=== PATIENT | male | born 1955 | race Caucasian/White ===

== ENCOUNTER 2020-07-26 08:00 | Outpatient (CLI) | payer MEDICARE, OTHER ==
[2020-07-26 18:35] LABS: BASOPHILS % (AUTO) 0.5 %; EOSINOPHILS # (AUTO) 0.1 10^3/uL (0.0-0.7); EOSINOPHILS % (AUTO) 2.5 %; HCT - HEMATOCRIT 30.5 % (42.0-52.0); HGB - HEMOGLOBIN 8.2 g/dL (14.0-18.0); LYMPHOCYTES # (AUTO) 0.6 10^3/uL (1.5-3.5); LYMPHOCYTES % (AUTO) 10.7 %; MEAN CORPUSCULAR HGB CONC 26.9 g/dL (32.0-36.0); MEAN PLATELET VOLUME 11.1 fL (7.4-11.4); MONOCYTES # (AUTO) 0.6 10^3/uL (0.0-1.0); MONOCYTES % (AUTO) 10.4 %; NEUTROPHILS # (AUTO) 4.3 10^3/uL (1.5-6.6); NEUTROPHILS % (AUTO) 75.5 %; PLT - PLATELET COUNT 191 10^3/uL (130-450); RED BLOOD COUNT 3.91 10^6/uL (4.70-6.10); RED CELL DISTRIBUTION WIDTH 21.1 % (12.0-15.0); WHITE BLOOD COUNT 5.7 x10^3/uL (4.8-10.8)
[2020-07-26 18:36] LABS: ALBUMIN 2.5 g/dL (3.2-5.5); ALBUMIN/GLOBULIN RATIO 0.4 (1.0-2.2); ALKALINE PHOSPHATASE 56 IU/L (42-121); ALT ALANINE AMINOTRANSFERASE 32 IU/L (10-60); AST ASPARTATE AMINOTRANSFERASE 40 IU/L (10-42); BILIRUBIN,TOTAL 1.4 mg/dL (0.2-1.0); BUN - BLOOD UREA NITROGEN 20 mg/dL (6-20); CALCIUM 8.7 mg/dL (8.5-10.3); CARBON DIOXIDE - CO2 28 mmol/L (21-32); CHLORIDE 98 mmol/L (101-111); CHOL/HDL RATIO 3.6 (<5.0); CHOLESTEROL 87 mg/dL; CREATININE 0.8 mg/dL (0.6-1.2); GFR - MDRD 97 (>89); GLUCOSE 145 mg/dL (70-100); HDL CHOLESTEROL 24 mg/dL; LDL CHOLESTEROL,CALCULATED 53 mg/dL; LDL/HDL RATIO 2.2 (<3.6); POTASSIUM 4.2 mmol/L (3.5-5.0); SODIUM 137 mmol/L (135-145); TOTAL PROTEIN 9.5 g/dL (6.7-8.2); TRIGLYCERIDES 51 mg/dL; VLDL CHOLESTEROL 10 mg/dL
[2020-07-26 18:55] LABS: THYROID STIMULATING HORMONE 2.01 uIU/mL (0.34-5.60)
[2020-07-26 19:30] LABS: PLATELET ESTIMATE, MANUAL NORMAL (130-450,000) (NORMAL); PLATELET MORPHOLOGY NORMAL APPEARANCE (NORMAL)
[2020-07-26 19:31] LABS: WBC MORPHOLOGY (MULTIPLE) NORMAL APPEARANCE (NORMAL)
== END 2020-07-26 23:59 | disposition home or self-care (01) ==
LOC: LAB.WCP 08:00
PROVIDERS: ATTEND Family Medicine
DX: E78.5 Hyperlipidemia, unspecified (principal); I10 Essential (primary) hypertension; E66.01 Morbid (severe) obesity due to excess calories; E11.59 Type 2 diabetes mellitus with other circulatory complications
CPT/HCPCS: 36415; 80050; 80053; 80061; 81599; 82043; 82570; 83036; 83721; 84443; 85025

== ENCOUNTER 2020-07-27 08:00 | Outpatient (CLI) | payer MEDICARE, OTHER ==
[2020-07-27 12:26] LABS: CREATININE,URINE 140.1 mg/dL; MICROALBUM/CREATININE RATIO,UR 10.7 ug/mg (<30.0); MICROALBUMIN,URINE 1.5 mg/dL (0-300.0)
== END 2020-07-27 23:59 | disposition home or self-care (01) ==
LOC: LAB.WCP 08:00
PROVIDERS: ATTEND Family Medicine
DX: E78.5 Hyperlipidemia, unspecified (principal); I10 Essential (primary) hypertension; E66.01 Morbid (severe) obesity due to excess calories; E11.59 Type 2 diabetes mellitus with other circulatory complications
CPT/HCPCS: 82043; 82570

== ENCOUNTER 2020-10-26 08:00 | Outpatient (CLI) | payer MEDICARE, OTHER ==
[2020-10-26 19:09] LABS: FERRITIN 7.5 ng/mL (23.9-336.2)
[2020-10-26 19:17] LABS: % IRON SATURATION 7 % (20-50); IRON 26 ug/dL (45-182); TOTAL IRON BINDING CAPACITY 375 ug/dL (250-450); TRANSFERRIN 268 mg/dL (180-329)
== END 2020-10-26 23:59 | disposition home or self-care (01) ==
LOC: LAB.WCP 08:00
PROVIDERS: ATTEND Family Medicine
DX: D50.9 Iron deficiency anemia, unspecified (principal)
CPT/HCPCS: 36415; 82607; 82728; 82746; 83540; 84466

== ENCOUNTER 2020-10-26 18:02 | Outpatient (CLI) | payer MEDICARE, OTHER ==
--- NOTE | 2020-10-26 20:28 | Ultrasound Report ---
PROCEDURE: Abdomen Complete INDICATIONS: HYPOALBUMINEMIA TECHNIQUE: Real-time scanning was performed of the abdominal and retroperitoneal organs, with image documentatio n. COMPARISON: None. FINDINGS: Liver: Liver is nodular in margin, mildly elongated measuring 18.7 cm and diffusely coarse echotextu re. The portal vein was not well seen. Gallbladder: On the few available views of the gallbladder, the wall is thickened. No dense shadowing calculus. Biliary ducts: Not well seen due to lack of good acoustic window.. Pancreas: Not well seen due to lack of good acoustic window. Spleen: Spleen is enlarged measuring 15.8 cm in length. Kidneys: Kidneys are normal in size and echotexture. Right kidney measures 11.1 cm long; left kidne y measures 11.7 cm long. No hydronephrosis or nephrolithiasis. No solid masses. Aorta: Not seen Iliacs: Not seen IVC: Not seen Miscellaneous: Large amount of intra-abdominal ascites. IMPRESSION: 1. Cirrhotic liver morphology. 2. Findings of portal hypertension including splenomegaly and ascites. 3. Nonspecific gallbladder wall thickening. This is often seen in the presence of ascites. 4. Preliminary results given by the enrollment management director to the ordering provider. Reviewed by: Trish Hollis MD on 10/26/2020 8:26 PM PDT Approved by: Trish Hollis MD on 10/26/2020 8:26 PM PDT Station ID: [id number]
== END 2020-10-26 18:03 | disposition home or self-care (01) ==
LOC: DI 18:02
PROVIDERS: ATTEND Family Medicine
DX: E88.09 Other disorders of plasma-protein metabolism, not elsewhere classified (principal); K74.60 Unspecified cirrhosis of liver; R18.8 Other ascites; K76.6 Portal hypertension
CPT/HCPCS: 36415; 82607; 82728; 82746; 83540; 84466

== ENCOUNTER 2020-11-01 08:00 | Outpatient (CLI) | payer MEDICARE, OTHER ==
[2020-11-01 11:37] LABS: ABSOLUTE RETICS # AUTO 0.096 10^6/uL (0.020-0.110); RED BLOOD COUNT 3.98 10^6/uL (4.70-6.10); RETICULOCYTE COUNT % (AUTO) 2.42 % (0.5-2.3)
[2020-11-01 11:51] LABS: ESTIMATED AVERAGE GLUCOSE 131 mg/dL (70-100); HEMOGLOBIN A1c% 6.2 % (4.27-6.07)
[2020-11-01 12:04] LABS: ALBUMIN 2.4 g/dL (3.2-5.5); BILIRUBIN,DIRECT 0.2 mg/dL (0.1-0.5); BILIRUBIN,TOTAL 1.2 mg/dL (0.2-1.0); CREATININE 0.8 mg/dL (0.6-1.2); TOTAL PROTEIN 9.4 g/dL (6.7-8.2)
[2020-11-01 12:13] LABS: CALCIUM 8.4 mg/dL (8.5-10.3); POTASSIUM 3.8 mmol/L (3.5-5.0)
[2020-11-02 12:13] LABS: HEPATITIS C ANTIBODY NON-REACTIVE (NON-REACTIVE)
== END 2020-11-01 23:59 | disposition home or self-care (01) ==
LOC: LAB.WCP 08:00
PROVIDERS: ATTEND Family Medicine
DX: E11.59 Type 2 diabetes mellitus with other circulatory complications (principal); R18.8 Other ascites; E88.09 Other disorders of plasma-protein metabolism, not elsewhere classified; D50.9 Iron deficiency anemia, unspecified
CPT/HCPCS: 36415; 80048; 80076; 83036; 85045; 86317; 86704; 86803

== ENCOUNTER 2020-11-04 08:00 | Outpatient (CLI) | payer MEDICARE, OTHER ==
[2020-11-08 10:31] LABS: IMMUNOGLOBULIN A 369 mg/dL (70-320); IMMUNOGLOBULIN G 4959 mg/dL (600-1540); IMMUNOGLOBULIN M 247 mg/dL (50-300)
== END 2020-11-04 23:59 | disposition home or self-care (01) ==
LOC: LAB.WCP 08:00
PROVIDERS: ATTEND Family Medicine
DX: C90.00 Multiple myeloma not having achieved remission (principal)
CPT/HCPCS: 82784

== ENCOUNTER 2021-01-17 11:04 | Outpatient (CLI) | payer MEDICARE, OTHER ==
[2021-01-17 17:52] LABS: BASOPHILS % (AUTO) 0.4 %; EOSINOPHILS # (AUTO) 0.1 10^3/uL (0.0-0.7); EOSINOPHILS % (AUTO) 2.2 %; HCT - HEMATOCRIT 33.5 % (42.0-52.0); HGB - HEMOGLOBIN 9.7 g/dL (14.0-18.0); LYMPHOCYTES # (AUTO) 0.6 10^3/uL (1.5-3.5); LYMPHOCYTES % (AUTO) 12.5 %; MEAN CORPUSCULAR VOLUME 82.7 fL (80.0-94.0); MEAN PLATELET VOLUME 11.2 fL (7.4-11.4); MONOCYTES # (AUTO) 0.5 10^3/uL (0.0-1.0); MONOCYTES % (AUTO) 10.7 %; NEUTROPHILS # (AUTO) 3.3 10^3/uL (1.5-6.6); NEUTROPHILS % (AUTO) 73.8 %; PLT - PLATELET COUNT 185 10^3/uL (130-450); RED BLOOD COUNT 4.05 10^6/uL (4.70-6.10); WHITE BLOOD COUNT 4.5 x10^3/uL (4.8-10.8)
[2021-01-17 17:53] LABS: SLIDE REVIEW? Indicated
[2021-01-17 18:05] LABS: ALBUMIN 2.4 g/dL (3.2-5.5); ALBUMIN/GLOBULIN RATIO 0.3 (1.0-2.2); CALCIUM 8.5 mg/dL (8.5-10.3); CREATININE 0.8 mg/dL (0.6-1.2); TOTAL PROTEIN 10.5 g/dL (6.7-8.2)
[2021-01-17 18:21] LABS: THYROID STIMULATING HORMONE 2.19 uIU/mL (0.34-5.60)
[2021-01-17 18:23] LABS: FREE T3 2.49 pg/mL (2.5-3.9); FREE T4 (FREE THYROXINE) 1.15 ng/dL (0.58-1.64)
[2021-01-17 19:15] LABS: PLATELET ESTIMATE, MANUAL NORMAL (130-450,000) (NORMAL); PLATELET MORPHOLOGY NORMAL APPEARANCE (NORMAL); WBC MORPHOLOGY (MULTIPLE) NORMAL APPEARANCE (NORMAL)
[2021-01-17 20:17] LABS: ESTIMATED AVERAGE GLUCOSE 131 mg/dL (70-100); HEMOGLOBIN A1c% 6.2 % (4.27-6.07)
== END 2021-01-17 23:59 | disposition home or self-care (01) ==
LOC: LAB.WCP 11:04
PROVIDERS: ATTEND Family Medicine
DX: I10 Essential (primary) hypertension (principal); E11.51 Type 2 diabetes mellitus with diabetic peripheral angiopathy without gangrene; K76.6 Portal hypertension; R18.8 Other ascites; E88.09 Other disorders of plasma-protein metabolism, not elsewhere classified; I25.10 Atherosclerotic heart disease of native coronary artery without angina pectoris; E66.01 Morbid (severe) obesity due to excess calories
CPT/HCPCS: 36415; 80053; 83036; 84439; 84443; 84481; 85025

== ENCOUNTER 2021-04-18 08:00 | Outpatient (CLI) | payer MEDICARE, OTHER ==
[2021-04-18 18:44] LABS: CALCIUM 8.1 mg/dL (8.5-10.3); CREATININE 0.9 mg/dL (0.6-1.2); POTASSIUM 4.8 mmol/L (3.5-5.0)
[2021-04-18 21:05] LABS: ESTIMATED AVERAGE GLUCOSE 134 mg/dL (70-100); HEMOGLOBIN A1c% 6.3 % (4.27-6.07)
== END 2021-04-18 23:59 | disposition home or self-care (01) ==
LOC: LAB.WCP 08:00
PROVIDERS: ATTEND Family Medicine
DX: K74.69 Other cirrhosis of liver (principal); K76.6 Portal hypertension; D50.9 Iron deficiency anemia, unspecified; E88.09 Other disorders of plasma-protein metabolism, not elsewhere classified; I10 Essential (primary) hypertension; E66.01 Morbid (severe) obesity due to excess calories; E11.59 Type 2 diabetes mellitus with other circulatory complications
CPT/HCPCS: 36415; 80048; 83036

== ENCOUNTER 2021-08-04 07:55 | Outpatient (CLI) | payer MEDICARE, OTHER ==
[2021-08-04 13:07] LABS: BASOPHILS % (AUTO) 1.2 %; EOSINOPHILS # (AUTO) 0.2 10^3/uL (0.0-0.7); EOSINOPHILS % (AUTO) 7.3 %; HCT - HEMATOCRIT 30.5 % (42.0-52.0); HGB - HEMOGLOBIN 9.2 g/dL (14.0-18.0); LYMPHOCYTES # (AUTO) 0.5 10^3/uL (1.5-3.5); LYMPHOCYTES % (AUTO) 15.8 %; MEAN CORPUSCULAR HEMOGLOBIN 27.6 pg (27.0-31.0); MEAN CORPUSCULAR HGB CONC 30.2 g/dL (32.0-36.0); MEAN CORPUSCULAR VOLUME 91.6 fL (80.0-94.0); MEAN PLATELET VOLUME 11.4 fL (7.4-11.4); MONOCYTES # (AUTO) 0.7 10^3/uL (0.0-1.0); MONOCYTES % (AUTO) 19.8 %; NEUTROPHILS # (AUTO) 1.8 10^3/uL (1.5-6.6); PLT - PLATELET COUNT 150 10^3/uL (130-450); RED BLOOD COUNT 3.33 10^6/uL (4.70-6.10); RED CELL DISTRIBUTION WIDTH 20.5 % (12.0-15.0); WHITE BLOOD COUNT 3.3 x10^3/uL (4.8-10.8)
[2021-08-04 13:17] LABS: ALBUMIN 1.8 g/dL (3.2-5.5); ALBUMIN/GLOBULIN RATIO 0.2 (1.0-2.2); BILIRUBIN,TOTAL 0.7 mg/dL (0.2-1.0); CALCIUM 8.3 mg/dL (8.5-10.3); CREATININE 0.9 mg/dL (0.6-1.2); POTASSIUM 4.4 mmol/L (3.5-5.0); TOTAL PROTEIN 10.6 g/dL (6.7-8.2)
[2021-08-04 13:24] LABS: CREATININE,URINE 102.3 mg/dL; MICROALBUM/CREATININE RATIO,UR 4.9 ug/mg (<30.0); MICROALBUMIN,URINE 0.5 mg/dL (0-300.0)
[2021-08-04 13:26] LABS: THYROID STIMULATING HORMONE 3.6 uIU/mL (0.34-5.60)
[2021-08-04 13:44] LABS: ESTIMATED AVERAGE GLUCOSE 123 mg/dL (70-100); HEMOGLOBIN A1c% 5.9 % (4.27-6.07)
== END 2021-08-04 07:56 | disposition home or self-care (01) ==
LOC: LAB.N 07:55
PROVIDERS: ATTEND Family Medicine
DX: I10 Essential (primary) hypertension (principal); K76.6 Portal hypertension; K74.69 Other cirrhosis of liver; E88.09 Other disorders of plasma-protein metabolism, not elsewhere classified; I25.10 Atherosclerotic heart disease of native coronary artery without angina pectoris; E66.01 Morbid (severe) obesity due to excess calories; E11.59 Type 2 diabetes mellitus with other circulatory complications
CPT/HCPCS: 36415; 80053; 82043; 82570; 83036; 84443; 85025

== ENCOUNTER 2021-12-11 20:48 | Emergency (ER) | payer MEDICARE, OTHER ==
[2021-12-11 21:28] LABS: BASOPHILS % (AUTO) 0.9 %; EOSINOPHILS # (AUTO) 0.1 10^3/uL (0.0-0.7); EOSINOPHILS % (AUTO) 1.9 %; HCT - HEMATOCRIT 24.5 % (42.0-52.0); HGB - HEMOGLOBIN 7.5 g/dL (14.0-18.0); LYMPHOCYTES # (AUTO) 0.4 10^3/uL (1.5-3.5); MEAN CORPUSCULAR HEMOGLOBIN 28.4 pg (27.0-31.0); MEAN CORPUSCULAR HGB CONC 30.6 g/dL (32.0-36.0); MEAN CORPUSCULAR VOLUME 92.8 fL (80.0-94.0); MONOCYTES # (AUTO) 0.5 10^3/uL (0.0-1.0); MONOCYTES % (AUTO) 12.1 %; NEUTROPHILS # (AUTO) 3.2 10^3/uL (1.5-6.6); NEUTROPHILS % (AUTO) 74.9 %; PLT - PLATELET COUNT 211 10^3/uL (130-450); RED BLOOD COUNT 2.64 10^6/uL (4.70-6.10); RED CELL DISTRIBUTION WIDTH 19.3 % (12.0-15.0); WHITE BLOOD COUNT 4.3 x10^3/uL (4.8-10.8)
[2021-12-11] MEDS ORDERED: LIDOCAINE PATCH 5% TOP STA (21:39)
[2021-12-11 21:49] LABS: BILIRUBIN,URINE NEGATIVE (NEGATIVE); GLUCOSE, URINE (UA) NEGATIVE (NEGATIVE); KETONES,URINE (UA) NEGATIVE (NEGATIVE); LEUKOCYTE ESTERASE, URINE NEGATIVE (NEGATIVE); NITRITE,URINE NEGATIVE (NEGATIVE); OCCULT BLOOD,URINE NEGATIVE (NEGATIVE); PH,URINE 5.5 PH (5.0-7.5); PROTEIN,URINE NEGATIVE (NEGATIVE); UROBILINOGEN,URINE 0.2 (NORMAL) E.U./dL (NORMAL)
[2021-12-11 21:50] LABS: CLARITY,URINE CLEAR (CLEAR)
[2021-12-11 22:06] LABS: ALBUMIN 1.3 g/dL (3.2-5.5); ALBUMIN/GLOBULIN RATIO 0.1 (1.0-2.2); BILIRUBIN,TOTAL 0.5 mg/dL (0.2-1.0); CALCIUM 7.5 mg/dL (8.5-10.3); CREATININE 0.9 mg/dL (0.6-1.2); POTASSIUM 3.8 mmol/L (3.5-5.0); TOTAL PROTEIN 10.8 g/dL (6.7-8.2)
--- NOTE | 2021-12-11 23:01 | Ultrasound Report ---
PROCEDURE: Abdomen Limited INDICATIONS: RUQ abd pain TECHNIQUE: Real-time focused scanning was performed of the abdomen, with image documentation. COMPARISON: Abdominal ultrasound 10/26/2020 FINDINGS: The liver redemonstrates diffusely heterogeneous increased echogenicity and nodular hepatic contour c ompatible with cirrhosis. There is patent hepatopedal flow within the main portal vein. The gallbladder demonstrates biliary sludge with a few echogenic foci suggestive of gallstones. There is borderline gallbladder wall thickening measuring approximately 0.3-0.4 cm. There is a small amoun t of pericholecystic fluid but evaluation is limited by the presence of ascites. No definite intrahepatic biliary ductal dilatation but evaluation is limited due to increased parench ymal echogenicity. There is extrahepatic biliary ductal dilatation with suggestion of a dilated duct in the region of the pancreatic head measuring up to 1.7 cm. However, evaluation of the pancreas is l imited. Right kidney measures 10.9 cm. No hydronephrosis. There is moderate ascites demonstrated within all 4 quadrants with numerous internal septations. IMPRESSION: 1. Moderate ascites with numerous internal septations demonstrated. The findings suggest sequelae of an infectious or inflammatory process. 2. Findings compatible with cirrhosis redemonstrated. No discrete hepatic mass identified but evaluat ion is limited due to increased hepatic echogenicity. 3. Biliary sludge and gallstones demonstrated in the gallbladder. Borderline gallbladder wall thicken ing and mild pericholecystic fluid are nonspecific in the context of ascites. However, given patient' s symptoms, developing acute cholecystitis cannot be excluded and correlation is recommended clinical ly. 4. Suggestion of extrahepatic biliary ductal dilatation with limited visualization on the current renu dy. Recommend correlation clinically and if indicated further evaluation may be obtained with CT or M AUTHORIZATION REP. Reviewed by: Luis Alberto Hudson MD on 12/11/2021 10:59 PM PDT Approved by: Luis Alberto Hudson MD on 12/11/2021 10:59 PM PDT Station ID: [id number]
[2021-12-11] MEDS ORDERED: HYDROmorphone 1 MG/ML CARPUJECT IVP STA (23:31)
[2021-12-11] MEDS ORDERED: ONDANSETRON 4 MG/2 ML VIAL IVP STA (23:31)
[2021-12-12] MEDS ORDERED: levoFLOXacin 750 MG/150 ML 750 MG/150 ML BAG IV STA (01:49)
--- NOTE | 2021-12-12 03:59 | ED Physician Documentation ---
History of Present Illness - Stated complaint Stated Complaint: RT SIDE PX - Chief complaint Chief Complaint: Abd Pain - Additonal information Additional information: Patient is a 65-year-old male presenting to the emergency department with chief complaint of right-sided flank pain and fatigue. Reports several weeks of intermittent episodes of right-sided flank pain. No association with food, no associated nausea, vomiting, diarrhea or constipation. Does report progressively worsening fatigue for the last 1-2 weeks. Denies any fever, chills, chest pain, new rash, known sick contacts. 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 Also reports that "I was at [facility] in October and they told me my pancreas was swelling". Follows with gastroenterology at [facility], , Review of Systems Ten Systems: 10 systems reviewed and negative Constitutional: reports: Fatigue Eyes: denies: Loss of vision Nose: denies: Rhinorrhea / runny nose Throat: denies: Dental pain / toothache Cardiac: denies: Chest pain / pressure, Palpitations, Pedal edema GI: reports: Abdominal Pain. denies: Vomiting PD PAST MEDICAL HISTORY - Past Medical History Past Medical History: Yes Cardiovascular: Hypertension, Coronary artery disease, [place] GI: GERD - Past Surgical History Past Surgical History: Yes Ortho: Arthroscopic surgery Cardiovascular: Coronary stent - Present Medications Home Medications: Ambulatory Orders Medication Instructions Recorded Confirmed Aspirin 81 mg PO DAILY 11/18/12 12/12/21 Omeprazole [PriLOSEC] 20 mg PO DAILY 11/18/12 12/12/21 lisinopriL [Zestril] 10 mg PO DAILY 11/18/12 12/12/21 Atorvastatin Calcium 40 mg PO DAILY 12/12/21 12/12/21 Ferrous Sulfate 324 mg PO DAILY 12/12/21 12/12/21 Furosemide [Lasix] 20 mg PO DAILY 12/12/21 12/12/21 Ondansetron Odt [Zofran] 4 mg TL Q6H PRN #10 tablet 12/12/21 Spironolactone [Aldactone] 25 mg PO DAILY 12/12/21 12/12/21 carvediloL [Coreg] 3.125 mg PO DAILY 12/12/21 12/12/21 metFORMIN [Glucophage] 500 mg PO DAILY 12/12/21 12/12/21 oxyCODONE [Roxicodone] 5 mg PO Q4-6H PRN #12 tablet 12/12/21 - Allergies Allergies/Adverse Reactions: Allergies Allergy/AdvReac Type Severity Reaction Status Date / Time Penicillins Allergy unknown Verified 12/11/21 20:53 - Social History Does the pt smoke?: No Smoking Status: Never smoker Does the pt drink ETOH?: No Does the pt have substance abuse?: No - POLST Patient has POLST: No PD ED PE NORMAL - General General: Alert and oriented X 3, No acute distress, Other (Morbidly obese) - HEENT HEENT: Atraumatic, PERRL, EOMI - Neck Neck: Supple, no meningeal sign - Cardiac Cardiac: RRR - Respiratory Respiratory: No respiratory distress, Clear bilaterally - Abdomen Abdomen: Normal bowel sounds, Other (Right upper quadrant tenderness to palpation. Positive fluid wave) - Male Male : Deferred - Rectal Rectal: Deferred, Other (Light brown soft well-formed stool in rectal vault.) - Back Back: Other (Right-sided CVA tenderness to palpation.) - Derm Derm: Normal color - Extremities Extremities: No deformity - Psych Psych: Normal mood Results - Vitals Vitals: Vital Signs - 24 hr 12/11/21 12/11/21 12/12/21 20:53 22:56 00:00 Temperature 36.5 C Heart Rate 87 79 83 Heart Rate [ Brachial] Respiratory 16 16 Rate Blood Pressure 147/66 H 131/57 H 120/46 L Blood Pressure [Left Brachial artery] O2 Saturation 98 98 99 12/12/21 12/12/21 12/12/21 00:21 00:38 00:53 Temperature 36.8 C 36.8 C 37.0 C Heart Rate Heart Rate [ 80 71 80 Brachial] Respiratory 15 13 16 Rate Blood Pressure Blood Pressure 120/46 L 118/48 L 106/50 L [Left Brachial artery] O2 Saturation 97 98 94 12/12/21 12/12/21 12/12/21 01:23 01:53 02:00 Temperature 37 C 36.8 C 37 C Heart Rate 79 Heart Rate [ 79 80 Brachial] Respiratory 16 17 16 Rate Blood Pressure 122/55 L Blood Pressure 122/55 L 121/56 L [Left Brachial artery] O2 Saturation 93 93 12/12/21 12/12/21 12/12/21 02:23 02:53 03:23 Temperature 36.9 C 36.8 C 36.8 C Heart Rate Heart Rate [ 72 77 76 Brachial] Respiratory 17 18 18 Rate Blood Pressure Blood Pressure 123/61 119/57 L 115/57 L [Left Brachial artery] O2 Saturation 100 96 96 12/12/21 12/12/21 12/12/21 04:00 04:08 06:00 Temperature 36.8 C 36.8 C Heart Rate 75 74 Heart Rate [ 75 Brachial] Respiratory 17 17 16 Rate Blood Pressure 115/58 L 120/56 L Blood Pressure 115/58 L [Left Brachial artery] O2 Saturation 96 96 100 12/12/21 12/12/21 12/12/21 08:00 10:00 12:00 Temperature Heart Rate 71 71 76 Heart Rate [ Brachial] Respiratory 19 18 22 Rate Blood Pressure 137/53 H 129/57 L 125/58 L Blood Pressure [Left Brachial artery] O2 Saturation 99 98 99 Oxygen O2 Source Room air - EKG (time done) 2212 Rate: Rate (enter#) (82) Rhythm: NSR Rialto: Normal Intervals: Normal HI QRS: Normal Ischemia: Normal ST segments Compare to prior EKG: Unchanged from prior EKG Computer interpretation: Agree with computer - Labs Labs: Microbiology 12/12/21 01:51 Occult Blood - Final Stool Laboratory Tests 12/11/21 12/11/21 12/11/21 21:20 21:20 21:25 WBC 4.3 L RBC 2.64 L Hgb 7.5 L Hct 24.5 L MCV 92.8 MCH 28.4 MCHC 30.6 L RDW 19.3 H Plt Count 211 MPV 10.0 Neut # (Auto) 3.2 Lymph # (Auto) 0.4 L [place] # (Auto) 0.5 Eos # (Auto) 0.1 Baso # (Auto) 0.0 Absolute Nucleated RBC 0.00 Nucleated RBC % 0.0 Sodium Potassium Chloride Carbon Dioxide Anion Gap BUN Creatinine Estimated GFR (MDRD) Glucose Calcium Total Bilirubin AST ALT Alkaline Phosphatase Troponin I High Sens Total Protein Albumin Globulin Albumin/Globulin Ratio Lipase Urine Color YELLOW Urine Clarity CLEAR Urine pH 5.5 Ur Specific [place] 1.020 Urine Protein NEGATIVE Urine Glucose (UA) NEGATIVE Urine Ketones NEGATIVE Urine Occult Blood NEGATIVE Urine Nitrite NEGATIVE Urine Bilirubin NEGATIVE Urine Urobilinogen 0.2 (NORMAL) Ur Leukocyte Esterase NEGATIVE Ur Microscopic Review NOT INDICATED Urine Culture Comments NOT INDICATED Ethyl Alcohol SARS-CoV-2 (PCR) Blood Type Blood Type Recheck A POSITIVE Antibody Screen Crossmatch IS Only 12/11/21 12/11/21 12/11/21 21:45 21:45 21:45 WBC RBC Hgb Hct MCV MCH MCHC RDW Plt Count MPV Neut # (Auto) Lymph # (Auto) [place] # (Auto) Eos # (Auto) Baso # (Auto) Absolute Nucleated RBC Nucleated RBC % Sodium 134 L Potassium 3.8 Chloride 100 L Carbon Dioxide 27 Anion Gap 7.0 BUN 13 Creatinine 0.9 Estimated GFR (MDRD) 84 L Glucose 135 H Calcium 7.5 L Total Bilirubin 0.5 AST 43 H ALT 23 Alkaline Phosphatase 50 Troponin I High Sens 22.1 H* Total Protein 10.8 H Albumin 1.3 L Globulin 9.5 H Albumin/Globulin Ratio 0.1 L Lipase 45 Urine Color Urine Clarity Urine pH Ur Specific [place] Urine Protein Urine Glucose (UA) Urine Ketones Urine Occult Blood Urine Nitrite Urine Bilirubin Urine Urobilinogen Ur Leukocyte Esterase Ur Microscopic Review Urine Culture Comments Ethyl Alcohol < 5.0 SARS-CoV-2 (PCR) Blood Type Blood Type Recheck Antibody Screen Crossmatch IS Only 12/11/21 12/11/21 12/12/21 22:27 23:48 01:03 WBC RBC Hgb Hct MCV MCH MCHC RDW Plt Count MPV Neut # (Auto) Lymph # (Auto) [place] # (Auto) Eos # (Auto) Baso # (Auto) Absolute Nucleated RBC Nucleated RBC % Sodium Potassium Chloride Carbon Dioxide Anion Gap BUN Creatinine Estimated GFR (MDRD) Glucose Calcium Total Bilirubin AST ALT Alkaline Phosphatase Troponin I High Sens 23.2 H* Total Protein Albumin Globulin Albumin/Globulin Ratio Lipase Urine Color Urine Clarity Urine pH Ur Specific [place] Urine Protein Urine Glucose (UA) Urine Ketones Urine Occult Blood Urine Nitrite Urine Bilirubin Urine Urobilinogen Ur Leukocyte Esterase Ur Microscopic Review Urine Culture Comments Ethyl Alcohol SARS-CoV-2 (PCR) NOT DETECTED Blood Type A POSITIVE Blood Type Recheck Antibody Screen NEGATIVE Crossmatch IS Only See Detail 12/12/21 06:39 WBC RBC Hgb 7.8 L Hct 24.7 L MCV MCH MCHC RDW Plt Count MPV Neut # (Auto) Lymph # (Auto) [place] # (Auto) Eos # (Auto) Baso # (Auto) Absolute Nucleated RBC Nucleated RBC % Sodium Potassium Chloride Carbon Dioxide Anion Gap BUN Creatinine Estimated GFR (MDRD) Glucose Calcium Total Bilirubin AST ALT Alkaline Phosphatase Troponin I High Sens Total Protein Albumin Globulin Albumin/Globulin Ratio Lipase Urine Color Urine Clarity Urine pH Ur Specific [place] Urine Protein Urine Glucose (UA) Urine Ketones Urine Occult Blood Urine Nitrite Urine Bilirubin Urine Urobilinogen Ur Leukocyte Esterase Ur Microscopic Review Urine Culture Comments Ethyl Alcohol SARS-CoV-2 (PCR) Blood Type Blood Type Recheck Antibody Screen Crossmatch IS Only PD MEDICAL DECISION MAKING - ED course ED course: Patient is 65-year-old male with known history 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 Afebrile, hemodynamically stable on arrival to the emergency department. Tenderness to palpation of the right upper quadrant as well as right-sided CVA tenderness appreciated on exam. Patient does have a distended abdomen with ascites but no guarding, rebound, rigidity or indications of peritoneal irritation. Comprehensive labs however were significant for a chronic low level Leukopenia as well as a hemoglobin of 7.5. Rectal exam was performed and patient had light brown well-formed stool in his rectal vault that was guaiac negative. Chart review does demonstrate that he has a low level anemia, likely secondary to his underlying liver disease however his most recent hemoglobin was 9.2 per records obtained from [facility]. He does have a history of coronary artery disease and in keeping with recommendations from the trik and crit trials 1 unit PRBCs was ordered and transfused here in the emergency department. Ultrasonography of the patient's right upper quadrant demonstrated cholelithiasis with likely gallbladder polyp, wall thickening, pericholecystic fluid of uncertain clinical significance in setting of ascites as well as a dilatation of the biliary duct at 1.6 cm. The patient did report that he had an ultrasound performed of his gallbladder ordered by his cloth folder hand in October, and was told about several of these findings including the gallstones and wall thickening. States has not yet followed up with either his cloth folder hand and was not referred to any surgical service for further evaluation. I did obtain records from [facility] and well there was appreciable wall thickening and identifiable gallstones on the ultrasound performed in October there was no identifiable duct dilatation as is found on today's study. Of note the patient's labs here in the emergency department are very reassuring, specifically and that there is no indications of biliary obstruction With his normal LFTs, alkaline phosphatase and bilirubin. Consultation obtained with Dr. Best, general surgery whos recommendation at this time was for CT scan of the abdomen and pelvis as well as MRCP given the new duct dilatation and patient's symptoms. Does not belive transfer is needed at this time . Patient was given single dose of levofloxacin as well as medication for pain control here in the emergency department. Will be signing patient out to oncoming physician, please see their documentation for further detail - Consults Consults: Consulted (name) (Dr. Best, [facility]), Request sap portal consultant accept pt in transfer Departure - Departure Disposition: 01 Home, Self Care Clinical Impression: Biliary colic symptom, Gallstone Abdominal pain Qualifiers: Abdominal location: right upper quadrant Qualified Code(s): R10.11 - Right upper quadrant pain Condition: Stable Instructions: ED Gallstone W Biliary Colic Follow-Up: Surgical Care [Provider Group] Tommy Fermin MD [Primary Care Provider] - Derik Ruiz MD [Provider Admit Priv/Credential] - Prescriptions: oxyCODONE [Roxicodone] 5 mg PO Q4-6H PRN #12 tablet PRN Reason: Pain Ondansetron Odt [Zofran] 4 mg TL Q6H PRN #10 tablet PRN Reason: Nausea / Vomiting Comments: Your MRCP does not show any obvious bile duct dilated Tat[place]. Your liver enzymes are normal as well. Your studies do show gallstones with mild gallbladder wall thickening suggesting inflammation. I presume you are having gallbladder spasms episodically. Try to avoid fatty foods. Use Zofran if needed for nausea and oxycodone if needed for pain episodes. Follow-up with surgery regarding discussion about gallbladder surgery. I gave the names for 2 of the surgical offices in [facility]. When you call for an appointment, specify that you were seen in an ER in the ER doctor would like a prompt follow-up. I sent your prescriptions to the [facility] pharmacy. I am prescribing a short course of narcotic pain medication for you. These are potentially dangerous and addictive medications that should be used carefully. These medications may constipate you. Take an wxbs-njf-yebjxep stool softener such as docusate twice daily with plenty of water while taking these medications. If you go 24 hours without a bowel movement, take xnxq-dcn-kywhjsb MiraLAX, per package instructions. Do not drink or drive while taking these medications. If you received narcotic or sedating medications while in the emergency department do not drive for 24 hours. Store this medication in a safe, secure place and out of reach of children. It is a violation of federal law to give or sell this medication to another person or to use in a manner other than prescribed. The ED will not refill narcotic prescriptions, including prescriptions lost or stolen. You can dispose of unwanted medications at the [facility] office or at several pharmacies such as [facility]. Discharge Date/Time: 12/12/21 13:43
[2021-12-12 06:45] LABS: HCT - HEMATOCRIT 24.7 % (42.0-52.0); HGB - HEMOGLOBIN 7.8 g/dL (14.0-18.0)
[2021-12-12] MEDS ORDERED: PANTOPRAZOLE 40 MG VIAL IVP STA (07:51)
--- NOTE | 2021-12-12 09:46 | CT Report ---
PROCEDURE: Abdomen/Pelvis W INDICATIONS: Abdominal pain CONTRAST: IV CONTRAST: Optiray 320 ml: 100 PO CONTRAST: *NO PO CONTRAST TECHNIQUE: After the administration of IV contrast, 5 mm thick sections acquired from the diaphragms to the symp hysis. 5 mm thick coronal and sagittal reformats were acquired. For radiation dose reduction, the f ollowing was used: automated exposure control, adjustment of mA and/or kV according to patient size. COMPARISON: Ultrasound abdomen, limited, 12/11/2021. Ultrasound abdomen complete, 10/26/2020. FINDINGS: Image quality: Excellent. ABDOMEN: Lung bases: Lung bases are clear. Heart size is normal. Severe coronary calcification. Small hiata l hernia. Gynecomastia. Solid organs: Liver is normal in size. The liver demonstrates nodular contour suggesting cirrhosis. Moderate hepatic steatosis. Gallbladder contains gallstones Biliary system is non dilated. Pancrea s enhances normally. No adrenal nodules. Kidneys demonstrate normal size and enhancement, without h ydronephrosis. Surface. and bowel: Bowel loops demonstrate normal wall thickness and caliber. Diverticulosis. No acute diverticulitis. Small bowel loops are seen outside of the colon in the right abdomen, which suggests internal hernia. No findings to suggest small bowel fashion. No free air. There is a moderate to large amount of ascites. Subtle enhancement of the peritoneum. Nodes and vessels: No retroperitoneal or mesenteric adenopathy by size criteria. Aorta and inferior vena cava are normal in size. Prominent venous collaterals in the left upper quadrant suggest portal hypertension. Miscellaneous: There is a moderate-sized periumbilical ventral hernias below the umbilicus, and a sma ll periumbilical hernia above the umbilicus. Stranding in the lower anterior abdominal wall. PELVIS: Genitourinary: Bladder wall thickness is normal. Miscellaneous: No inguinal hernias or adenopathy. Bones: No suspicious bony lesions. No vertebral body compression fractures. Lelwlusy-ob-oegmva deg enerative changes in lumbar spine. IMPRESSION: 1. Cholelithiasis. No CT findings to suggest acute cholecystitis. 2. Cirrhotic liver and portal hypertension. 3. Zzdqbjfq-yf-cjkdx amount of ascites, most likely secondary to cirrhosis. There is subtle enhanceme nt of peritoneum; cannot rule out superimposed peritonitis. Recommend clinical correlation. 4. Diverticulosis without acute diverticulitis. 5. Two periumbilical ventral hernias are present. There is stranding of lower anterior abdominal wall , which could be secondary to infection. No significant discrepancy with the preliminary interpretation. Reviewed by: Jannet Wheat MD on 12/12/2021 9:44 AM PDT Approved by: Jannet Wheat MD on 12/12/2021 9:44 AM PDT Station ID: [id number]
[2021-12-12 12:07] VITALS: BP 125/58
--- NOTE | 2021-12-12 12:14 | MRI Report ---
PROCEDURE: MRCP W/O INDICATIONS: evaluation for billiary obstruction TECHNIQUE: Coronal ultra fast SE through the abdomen, axial 2-D spoiled GE in- and [id number], and breath-hold T2 FSE with fat saturation through the biliary system and pancreas. Oblique coronal and axial thin- slice ultra fast SE, radial thick-slab ultra fast SE centered on the extrahepatic bile ducts. COMPARISON: CT of the abdomen and pelvis dated 12/12/2021. FINDINGS: Image quality: Patient motion artifact markedly limits evaluation of the abdomen. Pancreas and biliary system: The pancreas demonstrates grossly normal contours. The pancreatic duct i s not visualized. There is no intrahepatic biliary ductal dilatation. The common bile duct is poorly characterized but does not appear to be dilated where visualized. A 2.2 cm stone is present within th e gallbladder fundus. No definite gallbladder wall thickening. Other solid organs: The liver demonstrates overall normal appearance. The spleen measures 16.6 cm in length. There is a small amount of perihepatic and perisplenic fluid and a large amount of partially visualized fluid within the anterior abdomen. Nodes and vessels: No retroperitoneal or mesenteric adenopathy by size criteria. Aorta and inferior vena cava are not well visualized. Bowel and peritoneum: The bowel is poorly characterized. Lung bases: No basal pleural effusions. Heart size is normal. Bones and soft tissues: No ventral hernias. Bone marrow is of normal overall signal. IMPRESSION: 1. Markedly limited study given patient body habitus and motion artifact. There is no definite intrah epatic or extrahepatic biliary ductal dilatation; however there is very poor characterization of the common bile duct. 2. The pancreas demonstrates grossly normal contours, but the pancreatic duct is not characterized. 3. The spleen is enlarged. 4. There is a large amount of anterior abdominal ascites. Reviewed by: Tita Martin MD on 12/12/2021 12:13 PM PDT Approved by: Tita Martin MD on 12/12/2021 12:13 PM PDT Station ID: [id number]
--- NOTE | 2021-12-12 13:19 | ED Physician Documentation ---
ED Addendum - Addendum Addendum: 12/12/21 13:17The patient's MRCP came back resulting showing no intrahepatic or extrahepatic bile duct dilatation. There was some artifact due to patient habitus and slight motion but no obvious common bile duct abnormalities though limited interpretation. No obvious ductal foreign bodies. Gallstones and thickened gallbladder wall as noted in the ultrasound as well. Evaluation of the patient is he has not had any abdominal pain through the morning and still not at this time. He states has been coming in episodes over the last 2 to 3 weeks. Sounds most likely gallbladder spasms. He has not consulted with the surgeon as yet. We can give the name of local surgeons for consultation. He does have a seat cover cutter and could also look for a referral from there as well. I will prescribe him some antiemetic of Zofran and oxycodone pain medicine to take if needed for biliary colic episodes. He is to return to the ER significantly painful or vomiting episode. Otherwise follow-up with general surgery and his seat cover cutter. Disposition: The patient is discharged home in stable condition. Diagnoses: 1. Episodic right upper quadrant abdominal pain 2. Gallstones with biliary colic
== END 2021-12-12 13:43 | disposition home or self-care (01) ==
LOC: ED 20:48
DX: K80.50 Calculus of bile duct without cholangitis or cholecystitis without obstruction (principal); K80.20 Calculus of gallbladder without cholecystitis without obstruction; I10 Essential (primary) hypertension
CPT/HCPCS: 36415; 36430; 74177; 74181; 76705; 80053; 81003; 81599; 82272; 83690; 84484; 85014; 85018; 85025; 86850; 86900; 86901; 86920; 87635; 93005; 96365; 96366; 96375; 99284; 99285; A9270; G0480; J1170; P9016; Q9967; 80320; 81001; 87086

== ENCOUNTER 2022-03-13 12:21 | Outpatient (CLI) | payer MEDICARE, OTHER ==
[2022-03-13 18:09] LABS: BASOPHILS # (AUTO) 0.1 10^3/uL (0.0-0.1); BASOPHILS % (AUTO) 1.5 %; EOSINOPHILS # (AUTO) 0.1 10^3/uL (0.0-0.7); EOSINOPHILS % (AUTO) 1.9 %; HCT - HEMATOCRIT 22.6 % (42.0-52.0); LYMPHOCYTES # (AUTO) 1.1 10^3/uL (1.5-3.5); LYMPHOCYTES % (AUTO) 23.7 %; MEAN CORPUSCULAR HEMOGLOBIN 30.5 pg (27.0-31.0); MEAN CORPUSCULAR HGB CONC 29.6 g/dL (32.0-36.0); MEAN CORPUSCULAR VOLUME 102.7 fL (80.0-94.0); MEAN PLATELET VOLUME 10.8 fL (7.4-11.4); MONOCYTES # (AUTO) 0.4 10^3/uL (0.0-1.0); MONOCYTES % (AUTO) 8.5 %; NEUTROPHILS % (AUTO) 63.8 %; PLT - PLATELET COUNT 145 10^3/uL (130-450); RED CELL DISTRIBUTION WIDTH 21.6 % (12.0-15.0); WHITE BLOOD COUNT 4.7 x10^3/uL (4.8-10.8)
[2022-03-13 18:25] LABS: % IRON SATURATION 41 % (20-50); ALBUMIN < 1.0 g/dL (3.2-5.5); ALBUMIN/GLOBULIN RATIO 0.1 (1.0-2.2); ALKALINE PHOSPHATASE 69 IU/L (42-121); ALT ALANINE AMINOTRANSFERASE 21 IU/L (10-60); AST ASPARTATE AMINOTRANSFERASE 52 IU/L (10-42); BILIRUBIN,TOTAL 0.9 mg/dL (0.2-1.0); BUN - BLOOD UREA NITROGEN 18 mg/dL (6-20); CALCIUM 6.9 mg/dL (8.5-10.3); CARBON DIOXIDE - CO2 25 mmol/L (21-32); CHLORIDE 97 mmol/L (101-111); CHOLESTEROL 39 mg/dL; CREATININE 1.4 mg/dL (0.6-1.2); GFR - MDRD 51 (>89); GLUCOSE 78 mg/dL (70-100); INR 1.9 (0.8-1.2); IRON 44 ug/dL (45-182); POTASSIUM 4.2 mmol/L (3.5-5.0); PT - PROTHROMBIN TIME 20.2 secs (9.9-12.6); SODIUM 132 mmol/L (135-145); TOTAL IRON BINDING CAPACITY 108 ug/dL (250-450); TOTAL PROTEIN 10.2 g/dL (6.7-8.2); TRANSFERRIN 77 mg/dL (180-329); TRIGLYCERIDES 47 mg/dL; VLDL CHOLESTEROL 9 mg/dL
[2022-03-13 18:42] LABS: HGB - HEMOGLOBIN 6.7 g/dL (14.0-18.0)
[2022-03-13 18:43] LABS: HDL CHOLESTEROL < 5 mg/dL
[2022-03-13 20:05] LABS: PLATELET ESTIMATE, MANUAL NORMAL (130-450,000) (NORMAL); PLATELET MORPHOLOGY NORMAL APPEARANCE (NORMAL); SLIDE REVIEW? Indicated
[2022-03-13 21:28] LABS: ESTIMATED AVERAGE GLUCOSE 94 mg/dL (70-100); HEMOGLOBIN A1c% 4.9 % (4.27-6.07)
== END 2022-03-13 12:22 | disposition home or self-care (01) ==
LOC: LAB.N 12:21
PROVIDERS: ATTEND Family Medicine
DX: K74.69 Other cirrhosis of liver (principal); E11.59 Type 2 diabetes mellitus with other circulatory complications; D50.9 Iron deficiency anemia, unspecified
CPT/HCPCS: 36415; 80053; 80061; 82607; 83036; 83540; 83721; 83735; 84466; 85025; 85610

== ENCOUNTER 2022-03-13 19:59 | Emergency (ER) | payer MEDICARE, OTHER ==
[2022-03-13 20:48] LABS: BASOPHILS % (AUTO) 0.8 %; EOSINOPHILS # (AUTO) 0.1 10^3/uL (0.0-0.7); EOSINOPHILS % (AUTO) 2.1 %; HCT - HEMATOCRIT 22.5 % (42.0-52.0); LYMPHOCYTES # (AUTO) 0.7 10^3/uL (1.5-3.5); LYMPHOCYTES % (AUTO) 14.7 %; MEAN CORPUSCULAR HEMOGLOBIN 30.5 pg (27.0-31.0); MEAN CORPUSCULAR HGB CONC 29.8 g/dL (32.0-36.0); MEAN CORPUSCULAR VOLUME 102.3 fL (80.0-94.0); MEAN PLATELET VOLUME 10.2 fL (7.4-11.4); MONOCYTES # (AUTO) 0.5 10^3/uL (0.0-1.0); MONOCYTES % (AUTO) 10.4 %; NEUTROPHILS # (AUTO) 3.5 10^3/uL (1.5-6.6); NEUTROPHILS % (AUTO) 71.4 %; PLT - PLATELET COUNT 169 10^3/uL (130-450); RED CELL DISTRIBUTION WIDTH 21.7 % (12.0-15.0); WHITE BLOOD COUNT 4.8 x10^3/uL (4.8-10.8)
[2022-03-13 21:01] LABS: HGB - HEMOGLOBIN 6.7 g/dL (14.0-18.0)
[2022-03-13 21:02] LABS: CALCIUM 6.8 mg/dL (8.5-10.3); CREATININE 1.4 mg/dL (0.6-1.2); PHOSPHORUS 4.1 mg/dL (2.5-4.6); POTASSIUM 4.1 mmol/L (3.5-5.0)
[2022-03-13] MEDS ORDERED: MAGNESIUM SULFATE 2 GRAM 2 GM/50 ML BAG IV ONE (21:20)
--- NOTE | 2022-03-13 21:45 | ED Physician Documentation ---
History of Present Illness - Stated complaint Stated Complaint: LOW MAGNESIUM - Chief complaint Chief Complaint: General - History obtained from History obtained from: Patient, Family - History of Present Illness Timing: Today Pain level max: 0 Pain level now: 0 - Additonal information Additional information: Patient is a 66-year-old male who was sent in by his primary care provider delisa for low magnesium and anemia on routine lab draw today. Has a history of alcoholic cirrhosis. He is seen by GI at [facility]. He states that he has been more short of breath than usual, especially with ambulation. He states he is only able to walk a few steps before he is out of breath. No fevers. No chills. No chest pain. He has had blood transfusions before. Has not noted any blood in the stool. Review of Systems Ten Systems: 10 systems reviewed and negative Constitutional: denies: Fever, Chills Ears: denies: Ear pain Nose: denies: Rhinorrhea / runny nose, Congestion GI: denies: Vomiting, Diarrhea Skin: denies: Rash Musculoskeletal: denies: Neck pain, Back pain Neurologic: denies: Headache PD PAST MEDICAL HISTORY - Past Medical History Past Medical History: Yes Cardiovascular: Hypertension, Coronary artery disease, [place] Respiratory: None Neuro: None Endocrine/Autoimmune: None GI: GERD : None HEENT: None Psych: None Musculoskeletal: None Derm: None - Past Surgical History Past Surgical History: Yes Ortho: Arthroscopic surgery Cardiovascular: Coronary stent - Present Medications Home Medications: Ambulatory Orders Medication Instructions Recorded Confirmed Aspirin 81 mg PO DAILY 11/18/12 03/13/22 Omeprazole [PriLOSEC] 20 mg PO DAILY 11/18/12 03/13/22 lisinopriL [Zestril] 10 mg PO DAILY 11/18/12 03/13/22 Atorvastatin Calcium 40 mg PO DAILY 12/12/21 03/13/22 Ferrous Sulfate 324 mg PO DAILY 12/12/21 03/13/22 Furosemide [Lasix] 20 mg PO DAILY 12/12/21 03/13/22 Spironolactone [Aldactone] 25 mg PO DAILY 12/12/21 03/13/22 carvediloL [Coreg] 3.125 mg PO DAILY 12/12/21 03/13/22 metFORMIN [Glucophage] 500 mg PO DAILY 12/12/21 03/13/22 - Allergies Allergies/Adverse Reactions: Allergies Allergy/AdvReac Type Severity Reaction Status Date / Time Penicillins Allergy unknown Verified 03/13/22 20:25 - Social History Does the pt smoke?: No Smoking Status: Never smoker Does the pt drink ETOH?: No Does the pt have substance abuse?: No - Immunizations Immunizations are current?: Yes - POLST Patient has POLST: No PD ED PE NORMAL - Vitals Vital signs reviewed: Yes - General General: Alert and oriented X 3, No acute distress - HEENT HEENT: Moist mucous membranes - Neck Neck: Supple, no meningeal sign - Cardiac Cardiac: RRR, Strong equal pulses - Respiratory Respiratory: No respiratory distress, Clear bilaterally - Abdomen Abdomen: Soft, Other (Distended soft abdomen. Nontender) - Back Back: No CVA TTP - Derm Derm: Warm and dry, No rash - Extremities Extremities: Other (1+ bilateral lower extremity pitting edema) - Neuro Neuro: Alert and oriented X 3 - Psych Psych: Normal mood, Normal affect Results - Vitals Vitals: Vital Signs - 24 hr 03/13/22 03/13/22 03/13/22 22:39 22:50 22:52 Temperature 36.9 C 37.0 C Heart Rate 85 Heart Rate [ 94 83 Radial] Respiratory 18 18 18 Rate Blood Pressure Blood Pressure 134/51 H 108/53 L [Left] O2 Saturation 98 100 100 03/13/22 03/14/22 03/14/22 22:55 00:08 00:36 Temperature 37.0 C Heart Rate 82 Heart Rate [ 83 84 Radial] Respiratory 18 18 21 Rate Blood Pressure Blood Pressure 105/51 L 100/48 L [Left] O2 Saturation 100 99 100 03/14/22 01:14 Temperature 36.8 C Heart Rate 76 Heart Rate [ Radial] Respiratory 18 Rate Blood Pressure 100/48 L Blood Pressure [Left] O2 Saturation 100 Oxygen O2 Source Room air - Labs Labs: Laboratory Tests 03/13/22 03/13/22 03/13/22 14:20 14:20 14:20 WBC 4.8 RBC 2.20 L Hgb 6.7 L* Hct 22.5 L MCV 102.3 H MCH 30.5 MCHC 29.8 L RDW 21.7 H Plt Count 169 MPV 10.2 Neut # (Auto) 3.5 Lymph # (Auto) 0.7 L [place] # (Auto) 0.5 Eos # (Auto) 0.1 Baso # (Auto) 0.0 Absolute Nucleated RBC 0.00 Nucleated RBC % 0.0 Manual Slide Review Indicated Platelet Estimate NORMAL (130-450,000) Platelet Morphology NORMAL APPEARANCE RBC Morph Micro Appear 1+ [place] Sodium 133 L Potassium 4.1 Chloride 99 L Carbon Dioxide 26 Anion Gap 8.0 BUN 18 Creatinine 1.4 H Estimated GFR (MDRD) 51 L Glucose 182 H Calcium 6.8 L Phosphorus 4.1 Magnesium 1.0 L* Blood Type A POSITIVE Antibody Screen NEGATIVE Crossmatch IS Only See Detail PD MEDICAL DECISION MAKING - ED course Complexity details: reviewed results, re-evaluated patient, considered d ifferential, d/w patient ED course: 66-year-old male with hypomagnesemia and anemia. He was given IV magnesium as well as 1 unit of blood. Patient feels better. Patient will follow up with his doctor for further care. Patient counseled regarding signs and symptoms for which I believe and urgent re-evaluation would be necessary. Patient with good understanding of and agreement to plan and is comfortable going home at this time This document was made in part using voice recognition software. While efforts are made to proofread this document, sound alike and grammatical errors may occur. Departure - Departure Disposition: 01 Home, Self Care Clinical Impression: Hypomagnesemia, Symptomatic anemia Condition: Good Instructions: ED Anemia Type Not Specified Follow-Up: Tommy Fermin MD [Provider Admit Priv/Credential] - Within 3 Days Comments: Please follow-up with your primary care provider for further care. Please return if you worsen. You were given magnesium and a blood transfusion tonight. Your magnesium level should be rechecked with your doctor in approximately 3 days. They may want to start you on a magnesium supplement as well. Discharge Date/Time: 03/14/22 01:16
[2022-03-13 21:53] LABS: PLATELET ESTIMATE, MANUAL NORMAL (130-450,000) (NORMAL); PLATELET MORPHOLOGY NORMAL APPEARANCE (NORMAL); SLIDE REVIEW? Indicated
[2022-03-14 00:36] VITALS: BP 100/48
== END 2022-03-14 01:16 | disposition home or self-care (01) ==
LOC: ED 19:59
DX: E83.42 Hypomagnesemia (principal); D64.89 Other specified anemias; I10 Essential (primary) hypertension; K74.69 Other cirrhosis of liver; E11.59 Type 2 diabetes mellitus with other circulatory complications; D50.9 Iron deficiency anemia, unspecified
CPT/HCPCS: 36415; 36430; 80048; 80053; 80061; 82607; 83036; 83540; 83735; 84100; 84466; 85025; 85610; 86850; 86900; 86901; 86920; 96365; 99284; 99285; P9016; 83721

== ENCOUNTER 2022-03-19 09:22 | Outpatient (CLI) | payer MEDICARE, OTHER ==
[2022-03-19 12:03] LABS: BASOPHILS # (AUTO) 0.1 10^3/uL (0.0-0.1); EOSINOPHILS # (AUTO) 0.1 10^3/uL (0.0-0.7); EOSINOPHILS % (AUTO) 1.9 %; HCT - HEMATOCRIT 23.9 % (42.0-52.0); HGB - HEMOGLOBIN 7.3 g/dL (14.0-18.0); LYMPHOCYTES # (AUTO) 1.2 10^3/uL (1.5-3.5); LYMPHOCYTES % (AUTO) 20.8 %; MEAN CORPUSCULAR HEMOGLOBIN 30.9 pg (27.0-31.0); MEAN CORPUSCULAR HGB CONC 30.5 g/dL (32.0-36.0); MEAN CORPUSCULAR VOLUME 101.3 fL (80.0-94.0); MEAN PLATELET VOLUME 10.8 fL (7.4-11.4); MONOCYTES # (AUTO) 0.6 10^3/uL (0.0-1.0); MONOCYTES % (AUTO) 10.6 %; NEUTROPHILS # (AUTO) 3.8 10^3/uL (1.5-6.6); PLT - PLATELET COUNT 149 10^3/uL (130-450); RED BLOOD COUNT 2.36 10^6/uL (4.70-6.10); RED CELL DISTRIBUTION WIDTH 20.7 % (12.0-15.0); WHITE BLOOD COUNT 5.9 x10^3/uL (4.8-10.8)
== END 2022-03-19 09:23 | disposition home or self-care (01) ==
LOC: LAB.N 09:22
PROVIDERS: ATTEND Family Medicine
DX: E83.42 Hypomagnesemia (principal); D73.1 Hypersplenism; K76.6 Portal hypertension
CPT/HCPCS: 36415; 83735; 85025

== ENCOUNTER 2022-04-18 16:37 | Inpatient (IN) | payer MEDICARE, OTHER ==
[2022-04-18 17:28] LABS: BASOPHILS # (AUTO) 0.1 10^3/uL (0.0-0.1); BASOPHILS % (AUTO) 1.1 %; EOSINOPHILS # (AUTO) 0.1 10^3/uL (0.0-0.7); HCT - HEMATOCRIT 21.7 % (42.0-52.0); LYMPHOCYTES # (AUTO) 1.2 10^3/uL (1.5-3.5); LYMPHOCYTES % (AUTO) 25.9 %; MEAN CORPUSCULAR HEMOGLOBIN 31.4 pg (27.0-31.0); MEAN CORPUSCULAR VOLUME 104.8 fL (80.0-94.0); MEAN PLATELET VOLUME 9.7 fL (7.4-11.4); MONOCYTES # (AUTO) 0.5 10^3/uL (0.0-1.0); MONOCYTES % (AUTO) 9.8 %; NEUTROPHILS # (AUTO) 2.7 10^3/uL (1.5-6.6); NEUTROPHILS % (AUTO) 59.3 %; PLT - PLATELET COUNT 216 10^3/uL (130-450); RED BLOOD COUNT 2.07 10^6/uL (4.70-6.10); WHITE BLOOD COUNT 4.6 x10^3/uL (4.8-10.8)
[2022-04-18] MEDS ORDERED: CEFEPIME 2 GM in SODIUM CHLORIDE 0.9% MINIBAG 100 ML IV STA (17:34)
[2022-04-18 17:35] LABS: ALBUMIN < 1.0 g/dL (3.2-5.5); ALBUMIN/GLOBULIN RATIO 0.1 (1.0-2.2); ALKALINE PHOSPHATASE 85 IU/L (42-121); ALT ALANINE AMINOTRANSFERASE 14 IU/L (10-60); AST ASPARTATE AMINOTRANSFERASE 40 IU/L (10-42); BILIRUBIN,TOTAL 0.8 mg/dL (0.2-1.0); BUN - BLOOD UREA NITROGEN 17 mg/dL (6-20); CALCIUM 7.6 mg/dL (8.5-10.3); CARBON DIOXIDE - CO2 28 mmol/L (21-32); CHLORIDE 101 mmol/L (101-111); CREATININE 1.2 mg/dL (0.6-1.2); GFR - MDRD 60 (>89); GLUCOSE 128 mg/dL (70-100); POTASSIUM 4.3 mmol/L (3.5-5.0); SODIUM 133 mmol/L (135-145); TOTAL PROTEIN 11.2 g/dL (6.7-8.2)
[2022-04-18 17:37] LABS: HGB - HEMOGLOBIN 6.5 g/dL (14.0-18.0); LACTIC ACID, VENOUS 2.1 mmol/L (0.5-2.2)
--- NOTE | 2022-04-18 17:37 | ED Physician Documentation ---
History of Present Illness - Stated complaint Stated Complaint: ABN TESTS - Chief complaint Chief Complaint: General - History obtained from History obtained from: Patient - Additonal information Additional information: 66-year-old gentleman with nonalcoholic fatty liver disease had a first-time paracentesis for symptomatic ascites 2 days ago at [facility]. Today he was called by [facility] and was told to go there for treatment of spontaneous bacterial peritonitis. He has no abdominal pain and no fever. Review of Systems Constitutional: denies: Fever, Chills GI: denies: Abdominal Pain, Nausea, Vomiting, Diarrhea : denies: Dysuria PD PAST MEDICAL HISTORY - Past Medical History Cardiovascular: Hypertension, Coronary artery disease, [place] Respiratory: None Neuro: None Endocrine/Autoimmune: None GI: GERD : None HEENT: None Psych: None Musculoskeletal: None Derm: None - Past Surgical History Past Surgical History: Yes Ortho: Arthroscopic surgery Cardiovascular: Coronary stent - Present Medications Home Medications: Ambulatory Orders Medication Instructions Recorded Confirmed Aspirin 81 mg PO DAILY 11/18/12 03/13/22 Omeprazole [PriLOSEC] 20 mg PO DAILY 11/18/12 03/13/22 lisinopriL [Zestril] 10 mg PO DAILY 11/18/12 03/13/22 Atorvastatin Calcium 40 mg PO DAILY 12/12/21 03/13/22 Ferrous Sulfate 324 mg PO DAILY 12/12/21 03/13/22 Furosemide [Lasix] 20 mg PO DAILY 12/12/21 03/13/22 Spironolactone [Aldactone] 25 mg PO DAILY 12/12/21 03/13/22 carvediloL [Coreg] 3.125 mg PO DAILY 12/12/21 03/13/22 metFORMIN [Glucophage] 500 mg PO DAILY 12/12/21 03/13/22 - Allergies Allergies/Adverse Reactions: Allergies Allergy/AdvReac Type Severity Reaction Status Date / Time Penicillins Allergy unknown Verified 04/18/22 16:51 - Social History Does the pt smoke?: No Smoking Status: Never smoker Does the pt drink ETOH?: No Does the pt have substance abuse?: No - Immunizations Immunizations are current?: Yes - POLST Patient has POLST: No PD ED PE NORMAL - Vitals Vital signs reviewed: Yes - General General: Alert and oriented X 3, No acute distress - Cardiac Cardiac: RRR, No murmur - Respiratory Respiratory: No respiratory distress, Clear bilaterally - Abdomen Abdomen: Other (He has ascites, but his abdomen is soft and nontender.) - Back Back: No CVA TTP, No spinal TTP - Derm Derm: Normal color, Warm and dry - Extremities Extremities: Other (2-3+ bilateral pitting pedal edema) - Neuro Neuro: Alert and oriented X 3, Normal speech Results - Vitals Vitals: Vital Signs - 24 hr 04/18/22 04/18/22 04/18/22 16:47 17:16 17:30 Temperature 37 C Heart Rate 78 74 76 Respiratory 16 16 12 Rate Blood Pressure 96/45 L 106/58 L 91/72 O2 Saturation 95 100 100 04/18/22 18:00 Temperature Heart Rate 67 Respiratory 15 Rate Blood Pressure 112/54 L O2 Saturation 100 Oxygen O2 Source Room air - Labs Labs: Laboratory Tests 04/18/22 04/18/22 04/18/22 17:10 17:10 17:10 WBC 4.6 L RBC 2.07 L Hgb 6.5 L* Hct 21.7 L MCV 104.8 H MCH 31.4 H MCHC 30.0 L RDW 20.0 H Plt Count 216 MPV 9.7 Neut # (Auto) 2.7 Lymph # (Auto) 1.2 L [place] # (Auto) 0.5 Eos # (Auto) 0.1 Baso # (Auto) 0.1 Absolute Nucleated RBC 0.00 Nucleated RBC % 0.0 Manual Slide Review Indicated Platelet Estimate NORMAL (130-450,000) Platelet Morphology NORMAL APPEARANCE RBC Morph Micro Appear 1+ [place] Sodium 133 L Potassium 4.3 Chloride 101 Carbon Dioxide 28 Anion Gap 4.0 L BUN 17 Creatinine 1.2 Estimated GFR (MDRD) 60 L Glucose 128 H Lactic Acid 2.1 Calcium 7.6 L Total Bilirubin 0.8 AST 40 ALT 14 Alkaline Phosphatase 85 Total Protein 11.2 H Albumin < 1.0 L Globulin 10.4 H Albumin/Globulin Ratio 0.1 L Urine Color Urine Clarity Urine pH Ur Specific [place] Urine Protein Urine Glucose (UA) Urine Ketones Urine Occult Blood Urine Nitrite Urine Bilirubin Urine Urobilinogen Ur Leukocyte Esterase Urine RBC Urine WBC Ur Squamous Epith Cells Urine Bacteria Urine Culture Comments 04/18/22 17:55 WBC RBC Hgb Hct MCV MCH MCHC RDW Plt Count MPV Neut # (Auto) Lymph # (Auto) [place] # (Auto) Eos # (Auto) Baso # (Auto) Absolute Nucleated RBC Nucleated RBC % Manual Slide Review Platelet Estimate Platelet Morphology RBC Morph Micro Appear Sodium Potassium Chloride Carbon Dioxide Anion Gap BUN Creatinine Estimated GFR (MDRD) Glucose Lactic Acid Calcium Total Bilirubin AST ALT Alkaline Phosphatase Total Protein Albumin Globulin Albumin/Globulin Ratio Urine Color YELLOW Urine Clarity CLEAR Urine pH 6.0 Ur Specific [place] 1.010 Urine Protein NEGATIVE Urine Glucose (UA) NEGATIVE Urine Ketones NEGATIVE Urine Occult Blood NEGATIVE Urine Nitrite NEGATIVE Urine Bilirubin NEGATIVE Urine Urobilinogen 0.2 (NORMAL) Ur Leukocyte Esterase NEGATIVE Urine RBC None Seen Urine WBC 0-3 Ur Squamous Epith Cells NONE SEEN Urine Bacteria None Seen Urine Culture Comments NOT INDICATED Procedures - Paracentesis - Major Preparation: Consent obtained, Local anesthesia Location: [facility] Technique: Other (22-gauge spinal needle for diagnostic only paracentesis with 40 mils removed) Aftercare: No complications PD Medical Decision Making - ED course ED course: 66-year-old gentleman presents with concern for spontaneous bacterial peritonitis. This was based on a paracentesis done 2 days ago at [facility]. Patient came here as opposed to going to [facility]. We are trying to get records. His was able to show me the [place] information I am able to glean that the paracentesis white count total was 16,770 with 97% neutrophils. I am not able to see any culture data. I spoke with the warehouse associate at [facility], it does not sound like a culture was done on the peritoneal fluid that they tamera the other day. I also spoke with the on-call GI there who is not aware of the patient and could not locate records. Subsequently I repeated the paracentesis, just a diagnostic. I am told by lab that the white count is quite high confirming [facility]'s findings. Cultures added of course to. He was started on cefepime and I put in a telehealth admission request at 7:12 PM. Note made of the anemia, it looks like this is a chronic finding based on prior labs. Departure - Departure Disposition: 65 [facility] DC/Xfer Clinical Impression: Spontaneous bacterial peritonitis Condition: Serious
[2022-04-18] MEDS ORDERED: LIDOCAINE 1%-EPI 1:100000 20 ML MDV SUBQ STA (18:04)
[2022-04-18 18:07] LABS: BILIRUBIN,URINE NEGATIVE (NEGATIVE); GLUCOSE, URINE (UA) NEGATIVE (NEGATIVE); KETONES,URINE (UA) NEGATIVE (NEGATIVE); LEUKOCYTE ESTERASE, URINE NEGATIVE (NEGATIVE); NITRITE,URINE NEGATIVE (NEGATIVE); OCCULT BLOOD,URINE NEGATIVE (NEGATIVE); PROTEIN,URINE NEGATIVE (NEGATIVE); UROBILINOGEN,URINE 0.2 (NORMAL) E.U./dL (NORMAL)
[2022-04-18 18:09] LABS: CLARITY,URINE CLEAR (CLEAR)
[2022-04-18 18:23] LABS: BACTERIA,URINE None Seen /HPF (None Seen); RBC,URINE None Seen /HPF (0-5); SQUAMOUS EPITHELIAL CELL,UR NONE SEEN (<= Few); WBC,URINE 0-3 /HPF (0-3)
[2022-04-18 19:03] LABS: SLIDE REVIEW? Indicated
[2022-04-18 19:04] LABS: PLATELET ESTIMATE, MANUAL NORMAL (130-450,000) (NORMAL); PLATELET MORPHOLOGY NORMAL APPEARANCE (NORMAL)
[2022-04-18 19:28] LABS: BF SOURCE PERITONEAL; CC,BF RBC 8000 /mm^3; CC,BF WBC 13368 /mm^3
[2022-04-18 19:29] LABS: BF CLARITY CLOUDY; BF COLOR YELLOW
[2022-04-18 19:33] LABS: LYMPHOCYTES %,BODY FLUID 0 %; MACROPHAGES %,BODY FLUID 8 %; NEUTROPHILS %, BF 92 %
[2022-04-18 19:34] LABS: MESOTHELIAL %, BF 0 %
--- NOTE | 2022-04-18 20:21 | HISTORY & PHYSICAL EXAMINATION ---
Chief Complaint - Chief Complaint Chief Complaint: abnormal labs on ascitic fluid concern for SBP History of Present Illness - Admitted From Admitted From:: home - History of Present Illness HPI Comment/Other: Mr Whalen is a 66 yo M with hx HTN, CAD, non-alcoholic fatty liver disease. Patient follows with GI Dr Estevez, located in [place], [place]. He had his first paracentesis for symptomatic ascites 2 days ago in [facility]. He was told he had high WBC and referred to ER, cultures were not obtained per ER physician esperanza morgan with the GI team in [facility]. Pt reports he has been feeling fatigued and bloated. Denies abd pain, n/v, diarrhea, fevers, chills, cp, sob, cough. Occasional dyspnea on exertion, normally able to ambulate independently. LE swelling has improved greatly since being on lasix and aldactone. Patient has required blood transfusions, last was 3-4 months ago. Denies hematemesis, melena, hematochezia. His Christina is at bedside. History - Past Medical History Cardiovascular: reports: Hypertension, Coronary artery disease, [place] Respiratory: reports: None Neuro: reports: None Endocrine/Autoimmune: reports: None GI: reports: GERD : reports: None HEENT: reports: None Psych: reports: None Musculoskeletal: reports: None Derm: reports: None MRSA Hx?: No - Past Surgical History Ortho: reports: Arthroscopic surgery Cardiovascular: reports: Coronary stent - POLST Patient has POLST: No Meds/Allgy - Home Medications Home Medications: Ambulatory Orders Medication Instructions Recorded Confirmed Aspirin 81 mg PO DAILY 11/18/12 03/13/22 Omeprazole [PriLOSEC] 20 mg PO DAILY 11/18/12 03/13/22 lisinopriL [Zestril] 10 mg PO DAILY 11/18/12 03/13/22 Atorvastatin Calcium 40 mg PO DAILY 12/12/21 03/13/22 Ferrous Sulfate 324 mg PO DAILY 12/12/21 03/13/22 Furosemide [Lasix] 20 mg PO DAILY 12/12/21 03/13/22 Spironolactone [Aldactone] 25 mg PO DAILY 12/12/21 03/13/22 carvediloL [Coreg] 3.125 mg PO DAILY 12/12/21 03/13/22 metFORMIN [Glucophage] 500 mg PO DAILY 12/12/21 03/13/22 - Allergies Allergies/Adverse Reactions: Allergies Allergy/AdvReac Type Severity Reaction Status Date / Time Penicillins Allergy unknown Verified 04/18/22 16:51 Review of Systems - Constitutional Constitutional: reports: Fatigue. denies: Fever, Chills, Weight gain - Ears, Nose & Throat Ears, Nose & Throat: denies: Nasal congestion, Sore throat - Cardiovascular Cariovascular: reports: Decr. exercise tolerance. denies: Chest pain, Edema, Orthopnea - Respiratory Respiratory: reports: SOB with exertion. denies: Cough, Sputum production, Wheezing, SOB at rest - Gastrointestinal Gastrointestinal: reports: Abdominal distention. denies: Abdominal pain, Constipation, Diarrhea, Change in bowel habits, Rectal bleeding, Black stools, Nausea, Vomiting - Genitourinary Genitourinary: denies: Dysuria, Frequency, Urgency, Hematuria - Musculoskeletal Musculoskeletal: denies: Muscle pain, Back pain - Integumentary Integumentary: denies: Rash - Neurological Neurological: denies: General weakness, Headache - Psychiatric Psychiatric: denies: Depression, Anxiety - Hematologic/Lymphatic Hematologic/Lymphatic: reports: Anemia Prior Level of Functionality: ambulates independently Exam - Vital Signs Reviewed Vital Signs: Yes Vital Signs: Vital Signs x48h Temp Pulse Resp BP Pulse Ox 04/18/22 20:12 95 17 108/58 L 100 04/18/22 18:00 67 15 112/54 L 100 04/18/22 17:30 76 12 91/72 100 04/18/22 17:16 74 16 106/58 L 100 04/18/22 16:47 37 C 78 16 96/45 L 95 - Physical Exam General Appearance: positive: No acute distress Eyes Bilateral: positive: Normal inspection ENT: positive: ENT inspection nml Neck: positive: Nml inspection Respiratory: positive: No respiratory distress Skin: positive: Pallor Extremities: positive: Nml appearance Neurologic/Psychiatric: positive: Oriented x3, Mood/affect nml Conclusion/Plan - Lab Results Lab results reviewed: Yes Fish Bones: 04/18/22 17:10 04/18/22 17:10 - Other Other Results/Comments: Spontaneous bacterial peritonitis -WBC 16 K and 90% neutrophils per ER provider review of patient's "my chart" records -Repeat diagnostic paracentesis done in ER - cell count / cultures in process -Continue IV cefepime -Pt is afebrile, denies abd pain Anemia of chronic liver disease Hx iron deficiency anemia -Pt has hx requiring blood transfusions -Continue iron supplements -1 U PRBC ordered in ER -Trend H&H Hx nonalcoholic fatty liver disease -Pt follows w GI Dr Estevez in [facility] -Continue lasix, aldactone Hx HTN -BP is borderline, hold lisinopril, noted HR 90s will continue low dose coreg for now and trend vitals Hx CAD -Continue ASA, pt is no longer taking statin DVT ppx: SCDs, anemia Full code, confirmed with patient Telemedicine Consult Details - Provider Location & Consult Time Telemedicine consultation conducted via videoconferencing?: Yes List names and roles of persons who participated in consult:: Zachary Almaraz MD / patient and his
[2022-04-18] MEDS ORDERED: oxyCODONE 5 MG TABLET PO PRN (20:40)
[2022-04-18] MEDS ORDERED: ONDANSETRON 4 MG/2 ML VIAL IVP PRN (20:40)
[2022-04-18] MEDS ORDERED: SODIUM CHLORIDE FLUSH 0.9% 10 ML SYRINGE IVP PRN (20:40)
[2022-04-18 21:19] LABS: B. PARAPERTUSSIS- RESP PCR PAN NOT DETECTED; B. PERTUSSIS- RESP PCR PANEL NOT DETECTED; C. PNEUMONIAE- RESP PCR PANEL NOT DETECTED; CORONAVIRUS 229E-RESP PCR NOT DETECTED; CORONAVIRUS HKU1-RESP PCR NOT DETECTED; CORONAVIRUS NL63-RESP PCR NOT DETECTED; CORONAVIRUS OC43-RESP PCR NOT DETECTED; HUMAN METAPNEUMOVIRUS NOT DETECTED; INFLUENZA A- RESP PCR PANEL NOT DETECTED; INFLUENZA B - RESP PCR PANEL NOT DETECTED; M. PNEUMONIAE- RESP PCR PANEL NOT DETECTED; PARAINFLUENZA VIRUS 1 NOT DETECTED; PARAINFLUENZA VIRUS 2 NOT DETECTED; PARAINFLUENZA VIRUS 3 NOT DETECTED; PARAINFLUENZA VIRUS 4 NOT DETECTED; RHINOVIRUS/ENTEROVIRUS NOT DETECTED; RSV- RESP PCR PANEL NOT DETECTED; SARS-CoV-2 -RESP PCR PANEL NOT DETECTED
[2022-04-19] MEDS: SODIUM CHLORIDE FLUSH 0.9% 10 ML SYRINGE IVP SCH ×3 (02:38→19:02)
[2022-04-19] MEDS: PANTOPRAZOLE 40 MG TABLET PO SCH (06:24)
[2022-04-19] MEDS: carvediloL 3.125 MG TABLET PO SCH (08:51)
[2022-04-19] MEDS: FERROUS SULFATE 325 MG TABLET PO SCH (08:51)
[2022-04-19] MEDS: FUROSEMIDE 20 MG TABLET PO SCH (08:51)
[2022-04-19] MEDS: ASPIRIN CHEW 81 MG TABLET PO SCH (08:51)
--- NOTE | 2022-04-19 08:53 | PROVIDER PROGRESS NOTE ---
Assessment/Plan - Problem List (1) Spontaneous bacterial peritonitis Assessment/Plan: His ascites fluid WBC at [facility] was 16 K with 90% neutrophils per ER provider review of patient's "my chart" records. Our ER provider did a repeat diagnostic paracentesis, and this also shows elevated WBC of 13K w/ 90% neutrophils, cultures are in process Plan: Continue IV cefepime Await cx 2) Anemia He has anemia of chronic liver disease and Hx iron deficiency anemia Pt has hx requiring blood transfusions. For an admission Hgb of 6.5, 1 U PRBC was ordered and started in ER Plan: Continue iron supplements Follow H&H 3) Nonalcoholic fatty liver disease Pt follows w GI Dr Estevez in [facility] Plan: Continue lasix and aldactone 4) Hx HTN BP here is soft Plan: We are holding lisinopril but since HR 90s, we ordered to continue low dose co reg for now and trend vitals 5) Hx CAD Plan: Continue ASA, B-ignacio, pt is no longer taking statin If there is severe liver disease, he should not be on a non-selective beta- igncaio, per guidelines - Current Meds Current Meds: Current Medications Generic Name Dose Route Start Last Admin Trade Name Freq PRN Reason Stop Dose Admin Pantoprazole Sodium 40 mg 04/19/22 07:00 04/19/22 06:24 Pantoprazole 40 Mg Tablet PO 40 mg QDAC INA Administration Sodium Chloride 10 ml 04/19/22 01:00 04/19/22 02:38 Sodium Chloride Flush 0.9% 10 Ml Syringe IVP 10 ml 0100,0900,1700 INA Administration - Lab Result Fish Bone Diagrams: 04/19/22 13:03 04/18/22 17:10 Subjective - Subjective Patient Reports: Resting Comfortably, No Complaints Objective Vital Signs: Vital Signs - 24 hr 04/18/22 04/18/22 04/18/22 16:47 17:16 17:30 Temperature 37 C Heart Rate 78 74 76 Heart Rate [ Monitoring electrodes] Respiratory 16 16 12 Rate Blood Pressure 96/45 L 106/58 L 91/72 Blood Pressure [Left Brachial artery] Blood Pressure [Right Brachial artery] O2 Saturation 95 100 100 04/18/22 04/18/22 04/18/22 18:00 20:12 21:32 Temperature 36.4 C L Heart Rate 67 95 Heart Rate [ 87 Monitoring electrodes] Respiratory 15 17 16 Rate Blood Pressure 112/54 L 108/58 L Blood Pressure 121/57 L [Left Brachial artery] Blood Pressure [Right Brachial artery] O2 Saturation 100 100 96 04/18/22 04/18/22 04/19/22 22:15 22:38 02:00 Temperature 36.4 C L 36.5 C 36.7 C Heart Rate Heart Rate [ 84 76 73 Monitoring electrodes] Respiratory 18 18 16 Rate Blood Pressure Blood Pressure 121/57 L [Left Brachial artery] Blood Pressure 94/34 L 108/53 L [Right Brachial artery] O2 Saturation 96 95 96 04/19/22 08:05 Temperature 36.5 C Heart Rate Heart Rate [ 73 Monitoring electrodes] Respiratory 18 Rate Blood Pressure Blood Pressure [Left Brachial artery] Blood Pressure 114/44 L [Right Brachial artery] O2 Saturation 96 Oxygen O2 Source Room air I&O (Last 24 Hrs): Intake and Output Totals x24h 04/17/22 04/18/22 04/19/22 23:59 23:59 23:59 Intake Total 100 330 Output Total 850 Balance -750 330 General: Alert, Oriented x3, Other (Pale) HEENT: Mucous membr. moist/pink, Other (Is hoarse) Neck: Supple, No JVD Neuro: Alert, Non Focal, Other (No asterixis) Cardiovascular: Regular rate, No murmurs Respiratory: No respiratory distress, Breath sounds nml Abdomen: Other (Severely distended, not firm or tender, positive fluid wave) Extremities: Other (1+ edema to below knees) - Results Results: Laboratory Results WBC 4.6 x10^3/uL (4.8-10.8) L 04/18/22 17:10 RBC 2.07 10^6/uL (4.70-6.10) L 04/18/22 17:10 Hgb 6.5 g/dL (14.0-18.0) L* 04/18/22 17:10 Hct 21.7 % (42.0-52.0) L 04/18/22 17:10 MCV 104.8 fL (80.0-94.0) H 04/18/22 17:10 MCH 31.4 pg (27.0-31.0) H 04/18/22 17:10 MCHC 30.0 g/dL (32.0-36.0) L 04/18/22 17:10 RDW 20.0 % (12.0-15.0) H 04/18/22 17:10 Plt Count 216 10^3/uL (130-450) 04/18/22 17:10 MPV 9.7 fL (7.4-11.4) 04/18/22 17:10 Neut # (Auto) 2.7 10^3/uL (1.5-6.6) 04/18/22 17:10 Lymph # (Auto) 1.2 10^3/uL (1.5-3.5) L 04/18/22 17:10 [place] # (Auto) 0.5 10^3/uL (0.0-1.0) 04/18/22 17:10 Eos # (Auto) 0.1 10^3/uL (0.0-0.7) 04/18/22 17:10 Baso # (Auto) 0.1 10^3/uL (0.0-0.1) 04/18/22 17:10 Absolute Nucleated RBC 0.00 x10^3/uL 04/18/22 17:10 Nucleated RBC % 0.0 /100WBC 04/18/22 17:10 Manual Slide Review Indicated 04/18/22 17:10 Platelet Estimate NORMAL (130-450,000) (NORMAL) 04/18/22 17:10 Platelet Morphology NORMAL APPEARANCE (NORMAL) 04/18/22 17:10 RBC Morph Micro Appear 3+ ANISOCYTOSIS (NORMAL) 3+ MACROCYTOSIS (NORMAL) 1+ ROULEAUX (NORMAL) 04/18/22 17:10 RBC Morph Micro Appear 3+ ANISOCYTOSIS (NORMAL) 3+ MACROCYTOSIS (NORMAL) 1+ ROULEAUX (NORMAL) 04/18/22 17:10 RBC Morph Micro Appear 3+ ANISOCYTOSIS (NORMAL) 3+ MACROCYTOSIS (NORMAL) 1+ ROULEAUX (NORMAL) 04/18/22 17:10 Sodium 133 mmol/L (135-145) L 04/18/22 17:10 Potassium 4.3 mmol/L (3.5-5.0) 04/18/22 17:10 Chloride 101 mmol/L (101-111) 04/18/22 17:10 Carbon Dioxide 28 mmol/L (21-32) 04/18/22 17:10 Anion Gap 4.0 (6-13) L 04/18/22 17:10 BUN 17 mg/dL (6-20) 04/18/22 17:10 Creatinine 1.2 mg/dL (0.6-1.2) 04/18/22 17:10 Estimated GFR (MDRD) 60 (>89) L 04/18/22 17:10 Glucose 128 mg/dL (70-100) H 04/18/22 17:10 Lactic Acid 2.1 mmol/L (0.5-2.2) 04/18/22 17:10 Calcium 7.6 mg/dL (8.5-10.3) L 04/18/22 17:10 Total Bilirubin 0.8 mg/dL (0.2-1.0) 04/18/22 17:10 AST 40 IU/L (10-42) 04/18/22 17:10 ALT 14 IU/L (10-60) 04/18/22 17:10 Alkaline Phosphatase 85 IU/L (42-121) 04/18/22 17:10 Total Protein 11.2 g/dL (6.7-8.2) H 04/18/22 17:10 Albumin < 1.0 g/dL (3.2-5.5) L 04/18/22 17:10 Globulin 10.4 g/dL (2.1-4.2) H 04/18/22 17:10 Albumin/Globulin Ratio 0.1 (1.0-2.2) L 04/18/22 17:10 Urine Color YELLOW 04/18/22 17:55 Urine Clarity CLEAR (CLEAR) 04/18/22 17:55 Urine pH 6.0 PH (5.0-7.5) 04/18/22 17:55 Ur Specific [place] 1.010 (1.002-1.030) 04/18/22 17:55 Urine Protein NEGATIVE mg/dL (NEGATIVE) 04/18/22 17:55 Urine Glucose (UA) NEGATIVE mg/dL (NEGATIVE) 04/18/22 17:55 Urine Ketones NEGATIVE mg/dL (NEGATIVE) 04/18/22 17:55 Urine Occult Blood NEGATIVE (NEGATIVE) 04/18/22 17:55 Urine Nitrite NEGATIVE (NEGATIVE) 04/18/22 17:55 Urine Bilirubin NEGATIVE (NEGATIVE) 04/18/22 17:55 Urine Urobilinogen 0.2 (NORMAL) E.U./dL (NORMAL) 04/18/22 17:55 Ur Leukocyte Esterase NEGATIVE (NEGATIVE) 04/18/22 17:55 Urine RBC None Seen /HPF (0-5) 04/18/22 17:55 Urine WBC 0-3 /HPF (0-3) 04/18/22 17:55 Ur Squamous Epith Cells NONE SEEN (<= Few) 04/18/22 17:55 Urine Bacteria None Seen /HPF (None Seen) 04/18/22 17:55 Urine Culture Comments NOT INDICATED 04/18/22 17:55 Fluid Source PERITONEAL 04/18/22 18:20 Fluid Color YELLOW 04/18/22 18:20 Fluid Clarity CLOUDY 04/18/22 18:20 Fluid WBC 77538 /mm^3 04/18/22 18:20 Fluid RBC 8000 /mm^3 04/18/22 18:20 Fluid Neutrophils % 92 % 04/18/22 18:20 Fluid Lymphocytes % 0 % 04/18/22 18:20 Fluid Macrophages % 8 % 04/18/22 18:20 Fld Mesothelial Cell % 0 % 04/18/22 18:20 Nasal Adenovirus (PCR) NOT DETECTED 04/18/22 20:15 Nasal B. parapertussis DNA (PCR) NOT DETECTED 04/18/22 20:15 Nasal Coronavir 229E PCR NOT DETECTED 04/18/22 20:15 Nasal Coronavir HKU1 PCR NOT DETECTED 04/18/22 20:15 Nasal Coronavir NL63 PCR NOT DETECTED 04/18/22 20:15 Nasal Coronavir OC43 PCR NOT DETECTED 04/18/22 20:15 Nasal Enterovir/Rhinovir PCR NOT DETECTED 04/18/22 20:15 Nasal Influenza B PCR NOT DETECTED 04/18/22 20:15 Nasal Influenza A PCR NOT DETECTED 04/18/22 20:15 Nasal Parainfluen 1 PCR NOT DETECTED 04/18/22 20:15 Nasal Parainfluen 2 PCR NOT DETECTED 04/18/22 20:15 Nasal Parainfluen 3 PCR NOT DETECTED 04/18/22 20:15 Nasal Parainfluen 4 PCR NOT DETECTED 04/18/22 20:15 Nasal RSV (PCR) NOT DETECTED 04/18/22 20:15 Nasal B.pertussis DNA PCR NOT DETECTED 04/18/22 20:15 Nasal C.pneumoniae (PCR) NOT DETECTED 04/18/22 20:15 [place] Human Metapneumo PCR NOT DETECTED 04/18/22 20:15 Nasal M.pneumoniae (PCR) NOT DETECTED 04/18/22 20:15 Nasal SARS-CoV-2 (PCR) NOT DETECTED 04/18/22 20:15 Blood Type A POSITIVE 04/18/22 19:51 Antibody Screen NEGATIVE 04/18/22 19:51 Crossmatch IS Only See Detail 04/18/22 19:51
[2022-04-19] MEDS ORDERED: SPIRONOLACTONE 25 MG TABLET PO SCH (09:00)
[2022-04-19] MEDS: CEFEPIME 2 GM in SODIUM CHLORIDE 0.9% MINIBAG 100 ML IV SCH ×2 (09:25→21:30)
[2022-04-19 13:07] LABS: BASOPHILS # (AUTO) 0.1 10^3/uL (0.0-0.1); BASOPHILS % (AUTO) 1.3 %; EOSINOPHILS # (AUTO) 0.1 10^3/uL (0.0-0.7); EOSINOPHILS % (AUTO) 3.7 %; HCT - HEMATOCRIT 25.3 % (42.0-52.0); HGB - HEMOGLOBIN 7.7 g/dL (14.0-18.0); LYMPHOCYTES # (AUTO) 0.9 10^3/uL (1.5-3.5); LYMPHOCYTES % (AUTO) 24.3 %; MEAN CORPUSCULAR HEMOGLOBIN 30.7 pg (27.0-31.0); MEAN CORPUSCULAR HGB CONC 30.4 g/dL (32.0-36.0); MEAN CORPUSCULAR VOLUME 100.8 fL (80.0-94.0); MEAN PLATELET VOLUME 9.6 fL (7.4-11.4); MONOCYTES # (AUTO) 0.5 10^3/uL (0.0-1.0); MONOCYTES % (AUTO) 12.8 %; NEUTROPHILS # (AUTO) 2.1 10^3/uL (1.5-6.6); NEUTROPHILS % (AUTO) 57.1 %; PLT - PLATELET COUNT 162 10^3/uL (130-450); RED BLOOD COUNT 2.51 10^6/uL (4.70-6.10); RED CELL DISTRIBUTION WIDTH 20.6 % (12.0-15.0); WHITE BLOOD COUNT 3.8 x10^3/uL (4.8-10.8)
[2022-04-19 13:21] LABS: SLIDE REVIEW? Indicated
[2022-04-19 13:24] LABS: PLATELET ESTIMATE, MANUAL NORMAL (130-450,000) (NORMAL); PLATELET MORPHOLOGY NORMAL APPEARANCE (NORMAL); RBC MORPHOLOGY (MULTIPLE) 3+ ROULEAUX (NORMAL)
[2022-04-19 13:25] LABS: WBC MORPHOLOGY (MULTIPLE) NORMAL APPEARANCE (NORMAL)
--- NOTE | 2022-04-19 13:42 | PHARMACY PROGRESS NOTE ---
- Best Possible Medication History Admit Date and Time: 04/18/222039 Processed by: Pharmacy Medication History completed: Yes Patient Interview: Completed Secondary Source(s): Spouse/Significant other (PT'S IS A AGILE [employer] TESTER WHO MANAGES HIS MEDS AND SHE IS PRETTY ON TOP OF IT. PT STATES HE ALSO TAKES APPLE CIDER VINEGAR EVERY DAY.), Insurance records As the person ultimately responsible for medication therapy, providers are able to order a medication from an existing home medication list in [facility] via the "Reconcile Routine" prior to Confirmation of that medication by academic support coordinator. Such practice is discouraged except when the physician, in their clinical judgment, deems that a medical need exists for a medication without regard to previous use.
[2022-04-20] MEDS: SODIUM CHLORIDE FLUSH 0.9% 10 ML SYRINGE IVP SCH ×3 (01:00→17:11)
[2022-04-20 05:03] LABS: BASOPHILS # (AUTO) 0.1 10^3/uL (0.0-0.1); BASOPHILS % (AUTO) 1.1 %; EOSINOPHILS # (AUTO) 0.1 10^3/uL (0.0-0.7); EOSINOPHILS % (AUTO) 2.8 %; HCT - HEMATOCRIT 24.6 % (42.0-52.0); HGB - HEMOGLOBIN 7.5 g/dL (14.0-18.0); LYMPHOCYTES # (AUTO) 1.2 10^3/uL (1.5-3.5); LYMPHOCYTES % (AUTO) 26.6 %; MEAN CORPUSCULAR HEMOGLOBIN 30.9 pg (27.0-31.0); MEAN CORPUSCULAR HGB CONC 30.5 g/dL (32.0-36.0); MEAN CORPUSCULAR VOLUME 101.2 fL (80.0-94.0); MEAN PLATELET VOLUME 9.5 fL (7.4-11.4); MONOCYTES # (AUTO) 0.5 10^3/uL (0.0-1.0); MONOCYTES % (AUTO) 10.6 %; NEUTROPHILS # (AUTO) 2.6 10^3/uL (1.5-6.6); NEUTROPHILS % (AUTO) 58.4 %; PLT - PLATELET COUNT 167 10^3/uL (130-450); RED BLOOD COUNT 2.43 10^6/uL (4.70-6.10); RED CELL DISTRIBUTION WIDTH 19.9 % (12.0-15.0); WHITE BLOOD COUNT 4.4 x10^3/uL (4.8-10.8)
[2022-04-20 05:11] LABS: CALCIUM 7.7 mg/dL (8.5-10.3); CREATININE 1.3 mg/dL (0.6-1.2); MAGNESIUM 1.4 mg/dL (1.7-2.8); PHOSPHORUS 4.3 mg/dL (2.5-4.6); POTASSIUM 4.1 mmol/L (3.5-5.0)
[2022-04-20] MEDS: PANTOPRAZOLE 40 MG TABLET PO SCH (06:09)
[2022-04-20] MEDS: carvediloL 3.125 MG TABLET PO SCH (08:35)
[2022-04-20] MEDS: SPIRONOLACTONE 25 MG TABLET PO SCH (08:36)
[2022-04-20] MEDS: FUROSEMIDE 20 MG TABLET PO SCH (08:36)
[2022-04-20] MEDS: FERROUS SULFATE 325 MG TABLET PO SCH (08:36)
[2022-04-20] MEDS: ASPIRIN CHEW 81 MG TABLET PO SCH (08:37)
[2022-04-20] MEDS: MAGNESIUM OXIDE 400 MG TABLET PO SCH (08:45)
[2022-04-20] MEDS: CEFEPIME 2 GM in SODIUM CHLORIDE 0.9% MINIBAG 100 ML IV SCH ×2 (09:08→21:03)
--- NOTE | 2022-04-20 15:50 | PROVIDER PROGRESS NOTE ---
Assessment/Plan - Problem List (1) Spontaneous bacterial peritonitis Assessment/Plan: His ascites fluid WBC at [facility] was 16 K with 90% neutrophils per ER provider review of patient's "my chart" records. Our ER provider did a repeat diagnostic paracentesis, and this also shows elevated WBC of 13K w/ 90% neutrophils, cultures are in progress. No bacteria identified yet Plan: Continue empiric IV cefepime Await cx results 2) Anemia He has anemia of chronic liver disease and Hx iron deficiency anemia Pt has hx requiring blood transfusions. For an admission Hgb of 6.5, 1 U PRBC was ordered and started in ER Plan: Continue iron supplements Follow H&H 3) Nonalcoholic fatty liver disease Pt follows w GI Dr Estevez in [facility] Plan: Continue lasix and aldactone We will increase his Aldactone dose to help with the massive ascites 4) Hx HTN BP here is soft Plan: We are holding lisinopril but since HR 90s, we ordered to continue low dose coreg for now and trend vitals 5) Hx CAD Plan: Continue ASA, B-ignacio, pt is no longer taking statin If there is severe liver disease, he should not be on a non-selective beta- ignacio, per guidelines - Current Meds Current Meds: Current Medications Generic Name Dose Route Start Last Admin Trade Name Freq PRN Reason Stop Dose Admin Aspirin 81 mg 04/19/22 09:00 04/20/22 08:37 Aspirin Chew 81 Mg Tablet PO 81 mg DAILY INA Administration Carvedilol 3.125 mg 04/19/22 09:00 04/20/22 08:35 Carvedilol 3.125 Mg Tablet PO 3.125 mg DAILY INA Administration Ferrous Sulfate 325 mg 04/19/22 08:00 04/20/22 08:36 Ferrous Sulfate 325 Mg Tablet PO 325 mg DAILYWM INA Administration Furosemide 20 mg 04/19/22 09:00 04/20/22 08:36 Furosemide 20 Mg Tablet PO 20 mg DAILY INA Administration Cefepime HCl 2 gm/ Sodium 100 mls @ 200 mls/hr 04/19/22 09:00 04/20/22 09:40 Chloride IV 04/23/22 08:59 Infused BID INA Infusion Magnesium Oxide 400 mg 04/20/22 09:00 04/20/22 08:45 Magnesium Oxide 400 Mg Tablet PO 400 mg DAILYWM INA Administration Pantoprazole Sodium 40 mg 04/19/22 07:00 04/20/22 06:09 Pantoprazole 40 Mg Tablet PO 40 mg QDAC INA Administration Sodium Chloride 10 ml 04/19/22 01:00 04/20/22 09:40 Sodium Chloride Flush 0.9% 10 Ml Syringe IVP 10 ml 0100,0900,1700 INA Administration Spironolactone 50 mg 04/20/22 09:00 04/20/22 08:36 Spironolactone 25 Mg Tablet PO 50 mg DAILY INA Administration - Lab Result Fish Bone Diagrams: 04/20/22 04:25 04/20/22 04:25 - Additional Planning My Orders: My Active Orders 04/20/22 09:00 Magnesium Oxide [Mag Ox] 400 mg PO DAILYWM Spironolactone [Aldactone] 50 mg PO DAILY 04/21/22 05:00 BMP - BASIC METABOLIC PANEL [CHEM] DAILYLAB CBC - COMP BLD CT W/AUTO DIFF [HEME] DAILYLAB MAGNESIUM [CHEM] DAILYLAB 04/22/22 05:00 BMP - BASIC METABOLIC PANEL [CHEM] DAILYLAB CBC - COMP BLD CT W/AUTO DIFF [HEME] DAILYLAB 04/23/22 05:00 BMP - BASIC METABOLIC PANEL [CHEM] DAILYLAB CBC - COMP BLD CT W/AUTO DIFF [HEME] DAILYLAB Subjective - Subjective Patient Reports: Resting Comfortably (Has good appetite, no abdominal pain) Objective Vital Signs: Vital Signs - 24 hr 04/19/22 04/20/22 04/20/22 16:00 02:42 02:50 Temperature 36.5 C 36.3 C L Heart Rate [ 73 77 Monitoring electrodes] Respiratory 22 18 Rate Blood Pressure [Left Brachial artery] Blood Pressure 115/60 98/65 [Right Brachial artery] O2 Saturation 94 98 04/20/22 04/20/22 08:00 15:43 Temperature 36.7 C 36.7 C Heart Rate [ 81 73 Monitoring electrodes] Respiratory 20 16 Rate Blood Pressure 102/52 L 101/53 L [Left Brachial artery] Blood Pressure [Right Brachial artery] O2 Saturation 95 99 Oxygen O2 Source Room air I&O (Last 24 Hrs): Intake and Output Totals x24h 04/18/22 04/19/22 04/20/22 23:59 23:59 23:59 Intake Total 100 1610 1440 Output Total 850 Balance -750 1610 1440 General: Alert, Oriented x3 HEENT: Mucous membr. moist/pink, Other (Hoarseness (chronic)) Neck: Supple, No JVD Neuro: Alert, Non Focal Cardiovascular: No murmurs Respiratory: No respiratory distress, Breath sounds nml Abdomen: Other (Severely distended with a fluid wave, firm, nontender) Extremities: No clubbing, Other (Trace pedal edema) - Results Results: Laboratory Results WBC 4.4 x10^3/uL (4.8-10.8) L 04/20/22 04:25 RBC 2.43 10^6/uL (4.70-6.10) L 04/20/22 04:25 Hgb 7.5 g/dL (14.0-18.0) L 04/20/22 04:25 Hct 24.6 % (42.0-52.0) L 04/20/22 04:25 MCV 101.2 fL (80.0-94.0) H 04/20/22 04:25 MCH 30.9 pg (27.0-31.0) 04/20/22 04:25 MCHC 30.5 g/dL (32.0-36.0) L 04/20/22 04:25 RDW 19.9 % (12.0-15.0) H 04/20/22 04:25 Plt Count 167 10^3/uL (130-450) 04/20/22 04:25 MPV 9.5 fL (7.4-11.4) 04/20/22 04:25 Neut # (Auto) 2.6 10^3/uL (1.5-6.6) 04/20/22 04:25 Lymph # (Auto) 1.2 10^3/uL (1.5-3.5) L 04/20/22 04:25 [place] # (Auto) 0.5 10^3/uL (0.0-1.0) 04/20/22 04:25 Eos # (Auto) 0.1 10^3/uL (0.0-0.7) 04/20/22 04:25 Baso # (Auto) 0.1 10^3/uL (0.0-0.1) 04/20/22 04:25 Absolute Nucleated RBC 0.00 x10^3/uL 04/20/22 04:25 Nucleated RBC % 0.0 /100WBC 04/20/22 04:25 Manual Slide Review Indicated 04/19/22 13:03 WBC Morphology NORMAL APPEARANCE (NORMAL) 04/19/22 13:03 Platelet Estimate NORMAL (130-450,000) (NORMAL) 04/19/22 13:03 Platelet Morphology NORMAL APPEARANCE (NORMAL) 04/19/22 13:03 RBC Morph Micro Appear 3+ ROULEAUX (NORMAL) 04/19/22 13:03 Sodium 134 mmol/L (135-145) L 04/20/22 04:25 Potassium 4.1 mmol/L (3.5-5.0) 04/20/22 04:25 Chloride 101 mmol/L (101-111) 04/20/22 04:25 Carbon Dioxide 25 mmol/L (21-32) 04/20/22 04:25 Anion Gap 8.0 (6-13) 04/20/22 04:25 BUN 18 mg/dL (6-20) 04/20/22 04:25 Creatinine 1.3 mg/dL (0.6-1.2) H 04/20/22 04:25 Estimated GFR (MDRD) 55 (>89) L 04/20/22 04:25 Glucose 82 mg/dL (70-100) 04/20/22 04:25 Lactic Acid 2.1 mmol/L (0.5-2.2) 04/18/22 17:10 Calcium 7.7 mg/dL (8.5-10.3) L 04/20/22 04:25 Phosphorus 4.3 mg/dL (2.5-4.6) 04/20/22 04:25 Magnesium 1.4 mg/dL (1.7-2.8) L 04/20/22 04:25 Total Bilirubin 0.8 mg/dL (0.2-1.0) 04/18/22 17:10 AST 40 IU/L (10-42) 04/18/22 17:10 ALT 14 IU/L (10-60) 04/18/22 17:10 Alkaline Phosphatase 85 IU/L (42-121) 04/18/22 17:10 Total Protein 11.2 g/dL (6.7-8.2) H 04/18/22 17:10 Albumin < 1.0 g/dL (3.2-5.5) L 04/18/22 17:10 Globulin 10.4 g/dL (2.1-4.2) H 04/18/22 17:10 Albumin/Globulin Ratio 0.1 (1.0-2.2) L 04/18/22 17:10 Urine Color YELLOW 04/18/22 17:55 Urine Clarity CLEAR (CLEAR) 04/18/22 17:55 Urine pH 6.0 PH (5.0-7.5) 04/18/22 17:55 Ur Specific [place] 1.010 (1.002-1.030) 04/18/22 17:55 Urine Protein NEGATIVE mg/dL (NEGATIVE) 04/18/22 17:55 Urine Glucose (UA) NEGATIVE mg/dL (NEGATIVE) 04/18/22 17:55 Urine Ketones NEGATIVE mg/dL (NEGATIVE) 04/18/22 17:55 Urine Occult Blood NEGATIVE (NEGATIVE) 04/18/22 17:55 Urine Nitrite NEGATIVE (NEGATIVE) 04/18/22 17:55 Urine Bilirubin NEGATIVE (NEGATIVE) 04/18/22 17:55 Urine Urobilinogen 0.2 (NORMAL) E.U./dL (NORMAL) 04/18/22 17:55 Ur Leukocyte Esterase NEGATIVE (NEGATIVE) 04/18/22 17:55 Urine RBC None Seen /HPF (0-5) 04/18/22 17:55 Urine WBC 0-3 /HPF (0-3) 04/18/22 17:55 Ur Squamous Epith Cells NONE SEEN (<= Few) 04/18/22 17:55 Urine Bacteria None Seen /HPF (None Seen) 04/18/22 17:55 Urine Culture Comments NOT INDICATED 04/18/22 17:55 Fluid Source PERITONEAL 04/18/22 18:20 Fluid Color YELLOW 04/18/22 18:20 Fluid Clarity CLOUDY 04/18/22 18:20 Fluid WBC 72955 /mm^3 04/18/22 18:20 Fluid RBC 8000 /mm^3 04/18/22 18:20 Fluid Neutrophils % 92 % 04/18/22 18:20 Fluid Lymphocytes % 0 % 04/18/22 18:20 Fluid Macrophages % 8 % 04/18/22 18:20 Fld Mesothelial Cell % 0 % 04/18/22 18:20 Nasal Adenovirus (PCR) NOT DETECTED 04/18/22 20:15 Nasal B. parapertussis DNA (PCR) NOT DETECTED 04/18/22 20:15 Nasal Coronavir 229E PCR NOT DETECTED 04/18/22 20:15 Nasal Coronavir HKU1 PCR NOT DETECTED 04/18/22 20:15 Nasal Coronavir NL63 PCR NOT DETECTED 04/18/22 20:15 Nasal Coronavir OC43 PCR NOT DETECTED 04/18/22 20:15 Nasal Enterovir/Rhinovir PCR NOT DETECTED 04/18/22 20:15 Nasal Influenza B PCR NOT DETECTED 04/18/22 20:15 Nasal Influenza A PCR NOT DETECTED 04/18/22 20:15 Nasal Parainfluen 1 PCR NOT DETECTED 04/18/22 20:15 Nasal Parainfluen 2 PCR NOT DETECTED 04/18/22 20:15 Nasal Parainfluen 3 PCR NOT DETECTED 04/18/22 20:15 Nasal Parainfluen 4 PCR NOT DETECTED 04/18/22 20:15 Nasal RSV (PCR) NOT DETECTED 04/18/22 20:15 Nasal B.pertussis DNA PCR NOT DETECTED 04/18/22 20:15 Nasal C.pneumoniae (PCR) NOT DETECTED 04/18/22 20:15 [place] Human Metapneumo PCR NOT DETECTED 04/18/22 20:15 Nasal M.pneumoniae (PCR) NOT DETECTED 04/18/22 20:15 Nasal SARS-CoV-2 (PCR) NOT DETECTED 04/18/22 20:15 Blood Type A POSITIVE 04/18/22 19:51 Antibody Screen NEGATIVE 04/18/22 19:51 Crossmatch IS Only See Detail 04/18/22 19:51
[2022-04-21] MEDS: SODIUM CHLORIDE FLUSH 0.9% 10 ML SYRINGE IVP SCH ×2 (00:34→08:46)
[2022-04-21 05:22] LABS: BASOPHILS # (AUTO) 0.1 10^3/uL (0.0-0.1); EOSINOPHILS # (AUTO) 0.1 10^3/uL (0.0-0.7); EOSINOPHILS % (AUTO) 2.5 %; HCT - HEMATOCRIT 24.3 % (42.0-52.0); HGB - HEMOGLOBIN 7.5 g/dL (14.0-18.0); LYMPHOCYTES # (AUTO) 1.3 10^3/uL (1.5-3.5); LYMPHOCYTES % (AUTO) 26.2 %; MEAN CORPUSCULAR HEMOGLOBIN 30.7 pg (27.0-31.0); MEAN CORPUSCULAR HGB CONC 30.9 g/dL (32.0-36.0); MEAN CORPUSCULAR VOLUME 99.6 fL (80.0-94.0); MEAN PLATELET VOLUME 9.4 fL (7.4-11.4); MONOCYTES # (AUTO) 0.6 10^3/uL (0.0-1.0); MONOCYTES % (AUTO) 11.3 %; NEUTROPHILS # (AUTO) 2.9 10^3/uL (1.5-6.6); NEUTROPHILS % (AUTO) 58.6 %; PLT - PLATELET COUNT 165 10^3/uL (130-450); RED BLOOD COUNT 2.44 10^6/uL (4.70-6.10); RED CELL DISTRIBUTION WIDTH 19.4 % (12.0-15.0); WHITE BLOOD COUNT 4.9 x10^3/uL (4.8-10.8)
[2022-04-21 05:30] LABS: CALCIUM 7.6 mg/dL (8.5-10.3); CREATININE 1.4 mg/dL (0.6-1.2); MAGNESIUM 1.4 mg/dL (1.7-2.8); POTASSIUM 4.3 mmol/L (3.5-5.0)
[2022-04-21] MEDS: PANTOPRAZOLE 40 MG TABLET PO SCH (05:35)
[2022-04-21 07:56] VITALS: BP 111/56
[2022-04-21] MEDS: ASPIRIN CHEW 81 MG TABLET PO SCH (08:45)
[2022-04-21] MEDS: carvediloL 3.125 MG TABLET PO SCH (08:46)
[2022-04-21] MEDS: FERROUS SULFATE 325 MG TABLET PO SCH (08:46)
[2022-04-21] MEDS: SPIRONOLACTONE 25 MG TABLET PO SCH (08:46)
[2022-04-21] MEDS: CEFEPIME 2 GM in SODIUM CHLORIDE 0.9% MINIBAG 100 ML IV SCH (08:46)
[2022-04-21] MEDS: FUROSEMIDE 20 MG TABLET PO SCH (08:46)
[2022-04-21] MEDS: MAGNESIUM OXIDE 400 MG TABLET PO SCH (08:46)
--- NOTE | 2022-04-21 09:17 | PROVIDER PROGRESS NOTE ---
Assessment/Plan - Problem List (1) Spontaneous bacterial peritonitis Assessment/Plan: His ascites fluid WBC at [facility] was 16 K with 90% neutrophils per ER provider review of patient's "my chart" records. Our ER provider did a repeat diagnostic paracentesis, and this also shows elevated WBC of 13K w/ 90% neutrophils, cultures are in progress. No bacteria identified yet Plan: Continue empiric IV cefepime Await cx results (2) Hepatorenal syndrome Assessment/Plan: He has a rising creatinine. This is despite being on his usual Lasix and spironolactone doses. He is not getting any IV fluids. Plan: 3) Hyponatremia 4) Nonalcoholic fatty liver disease Pt follows w GI Dr Estevez in [facility] Plan: Continue lasix and aldactone We will increase his Aldactone dose to help with the massive ascites 5) Anemia He has anemia of chronic liver disease and Hx iron deficiency anemia Pt has hx requiring blood transfusions. For an admission Hgb of 6.5, 1 U PRBC was ordered and started in ER Plan: Continue iron supplements Follow H&H 4) Hx HTN BP here is soft Plan: We are holding lisinopril but since HR 90s, we ordered to continue low dose coreg for now and trend vitals 5) CAD Plan: Continue ASA, B-ignacio, pt is no longer taking statin If there is severe liver disease, he should not be on a non-selective beta- ignacio, per guidelines - Current Meds Current Meds: Current Medications Generic Name Dose Route Start Last Admin Trade Name Anthonyq PRN Reason Stop Dose Admin Aspirin 81 mg 04/19/22 09:00 04/20/22 08:37 Aspirin Chew 81 Mg Tablet PO 81 mg DAILY INA Administration Carvedilol 3.125 mg 04/19/22 09:00 04/20/22 08:35 Carvedilol 3.125 Mg Tablet PO 3.125 mg DAILY INA Administration Ferrous Sulfate 325 mg 04/19/22 08:00 04/20/22 08:36 Ferrous Sulfate 325 Mg Tablet PO 325 mg DAILYWM INA Administration Furosemide 20 mg 04/19/22 09:00 04/20/22 08:36 Furosemide 20 Mg Tablet PO 20 mg DAILY INA Administration Cefepime HCl 2 gm/ Sodium 100 mls @ 200 mls/hr 04/19/22 09:00 04/20/22 21:42 Chloride IV 04/23/22 08:59 Infused BID INA Infusion Magnesium Oxide 400 mg 04/20/22 09:00 04/20/22 08:45 Magnesium Oxide 400 Mg Tablet PO 400 mg DAILYWM INA Administration Pantoprazole Sodium 40 mg 04/19/22 07:00 04/21/22 05:35 Pantoprazole 40 Mg Tablet PO 40 mg QDAC INA Administration Sodium Chloride 10 ml 04/19/22 01:00 04/21/22 00:34 Sodium Chloride Flush 0.9% 10 Ml Syringe IVP 10 ml 0100,0900,1700 INA Administration Spironolactone 50 mg 04/20/22 09:00 04/20/22 08:36 Spironolactone 25 Mg Tablet PO 50 mg DAILY INA Administration - Lab Result Fish Bone Diagrams: 04/21/22 05:11 04/21/22 05:11 - Additional Planning My Orders: My Active Orders 04/20/22 09:00 Magnesium Oxide [Mag Ox] 400 mg PO DAILYWM Spironolactone [Aldactone] 50 mg PO DAILY 04/22/22 05:00 BMP - BASIC METABOLIC PANEL [CHEM] DAILYLAB CBC - COMP BLD CT W/AUTO DIFF [HEME] DAILYLAB 04/23/22 05:00 BMP - BASIC METABOLIC PANEL [CHEM] DAILYLAB CBC - COMP BLD CT W/AUTO DIFF [HEME] DAILYLAB Objective Vital Signs: Vital Signs - 24 hr 04/20/22 04/21/22 04/21/22 15:43 00:06 07:55 Temperature 36.7 C 37.1 C 37 C Heart Rate [ 81 75 Brachial] Heart Rate [ 73 Monitoring electrodes] Respiratory 16 18 16 Rate Blood Pressure 101/53 L [Left Brachial artery] Blood Pressure 117/55 L 111/56 L [Right Brachial artery] O2 Saturation 99 95 94 Oxygen O2 Source Room air I&O (Last 24 Hrs): Intake and Output Totals x24h 04/19/22 04/20/22 04/21/22 23:59 23:59 23:59 Intake Total 1610 2886 Balance 1610 2886 - Results Results: Laboratory Results WBC 4.9 x10^3/uL (4.8-10.8) 04/21/22 05:11 RBC 2.44 10^6/uL (4.70-6.10) L 04/21/22 05:11 Hgb 7.5 g/dL (14.0-18.0) L 04/21/22 05:11 Hct 24.3 % (42.0-52.0) L 04/21/22 05:11 MCV 99.6 fL (80.0-94.0) H 04/21/22 05:11 MCH 30.7 pg (27.0-31.0) 04/21/22 05:11 MCHC 30.9 g/dL (32.0-36.0) L 04/21/22 05:11 RDW 19.4 % (12.0-15.0) H 04/21/22 05:11 Plt Count 165 10^3/uL (130-450) 04/21/22 05:11 MPV 9.4 fL (7.4-11.4) 04/21/22 05:11 Neut # (Auto) 2.9 10^3/uL (1.5-6.6) 04/21/22 05:11 Lymph # (Auto) 1.3 10^3/uL (1.5-3.5) L 04/21/22 05:11 Ogle # (Auto) 0.6 10^3/uL (0.0-1.0) 04/21/22 05:11 Eos # (Auto) 0.1 10^3/uL (0.0-0.7) 04/21/22 05:11 Baso # (Auto) 0.1 10^3/uL (0.0-0.1) 04/21/22 05:11 Absolute Nucleated RBC 0.00 x10^3/uL 04/21/22 05:11 Nucleated RBC % 0.0 /100WBC 04/21/22 05:11 Manual Slide Review Indicated 04/19/22 13:03 WBC Morphology NORMAL APPEARANCE (NORMAL) 04/19/22 13:03 Platelet Estimate NORMAL (130-450,000) (NORMAL) 04/19/22 13:03 Platelet Morphology NORMAL APPEARANCE (NORMAL) 04/19/22 13:03 RBC Morph Micro Appear 3+ ROULEAUX (NORMAL) 04/19/22 13:03 Sodium 130 mmol/L (135-145) L 04/21/22 05:11 Potassium 4.3 mmol/L (3.5-5.0) 04/21/22 05:11 Chloride 98 mmol/L (101-111) L 04/21/22 05:11 Carbon Dioxide 26 mmol/L (21-32) 04/21/22 05:11 Anion Gap 6.0 (6-13) 04/21/22 05:11 BUN 20 mg/dL (6-20) 04/21/22 05:11 Creatinine 1.4 mg/dL (0.6-1.2) H 04/21/22 05:11 Estimated GFR (MDRD) 51 (>89) L 04/21/22 05:11 Glucose 91 mg/dL (70-100) 04/21/22 05:11 Lactic Acid 2.1 mmol/L (0.5-2.2) 04/18/22 17:10 Calcium 7.6 mg/dL (8.5-10.3) L 04/21/22 05:11 Phosphorus 4.3 mg/dL (2.5-4.6) 04/20/22 04:25 Magnesium 1.4 mg/dL (1.7-2.8) L 04/21/22 05:11 Total Bilirubin 0.8 mg/dL (0.2-1.0) 04/18/22 17:10 AST 40 IU/L (10-42) 04/18/22 17:10 ALT 14 IU/L (10-60) 04/18/22 17:10 Alkaline Phosphatase 85 IU/L (42-121) 04/18/22 17:10 Total Protein 11.2 g/dL (6.7-8.2) H 04/18/22 17:10 Albumin < 1.0 g/dL (3.2-5.5) L 04/18/22 17:10 Globulin 10.4 g/dL (2.1-4.2) H 04/18/22 17:10 Albumin/Globulin Ratio 0.1 (1.0-2.2) L 04/18/22 17:10 Urine Color YELLOW 04/18/22 17:55 Urine Clarity CLEAR (CLEAR) 04/18/22 17:55 Urine pH 6.0 PH (5.0-7.5) 04/18/22 17:55 Ur Specific [place] 1.010 (1.002-1.030) 04/18/22 17:55 Urine Protein NEGATIVE mg/dL (NEGATIVE) 04/18/22 17:55 Urine Glucose (UA) NEGATIVE mg/dL (NEGATIVE) 04/18/22 17:55 Urine Ketones NEGATIVE mg/dL (NEGATIVE) 04/18/22 17:55 Urine Occult Blood NEGATIVE (NEGATIVE) 04/18/22 17:55 Urine Nitrite NEGATIVE (NEGATIVE) 04/18/22 17:55 Urine Bilirubin NEGATIVE (NEGATIVE) 04/18/22 17:55 Urine Urobilinogen 0.2 (NORMAL) E.U./dL (NORMAL) 04/18/22 17:55 Ur Leukocyte Esterase NEGATIVE (NEGATIVE) 04/18/22 17:55 Urine RBC None Seen /HPF (0-5) 04/18/22 17:55 Urine WBC 0-3 /HPF (0-3) 04/18/22 17:55 Ur Squamous Epith Cells NONE SEEN (<= Few) 04/18/22 17:55 Urine Bacteria None Seen /HPF (None Seen) 04/18/22 17:55 Urine Culture Comments NOT INDICATED 04/18/22 17:55 Fluid Source PERITONEAL 04/18/22 18:20 Fluid Color YELLOW 04/18/22 18:20 Fluid Clarity CLOUDY 04/18/22 18:20 Fluid WBC 93238 /mm^3 04/18/22 18:20 Fluid RBC 8000 /mm^3 04/18/22 18:20 Fluid Neutrophils % 92 % 04/18/22 18:20 Fluid Lymphocytes % 0 % 04/18/22 18:20 Fluid Macrophages % 8 % 04/18/22 18:20 Fld Mesothelial Cell % 0 % 04/18/22 18:20 Nasal Adenovirus (PCR) NOT DETECTED 04/18/22 20:15 Nasal B. parapertussis DNA (PCR) NOT DETECTED 04/18/22 20:15 Nasal Coronavir 229E PCR NOT DETECTED 04/18/22 20:15 Nasal Coronavir HKU1 PCR NOT DETECTED 04/18/22 20:15 Nasal Coronavir NL63 PCR NOT DETECTED 04/18/22 20:15 Nasal Coronavir OC43 PCR NOT DETECTED 04/18/22 20:15 Nasal Enterovir/Rhinovir PCR NOT DETECTED 04/18/22 20:15 Nasal Influenza B PCR NOT DETECTED 04/18/22 20:15 Nasal Influenza A PCR NOT DETECTED 04/18/22 20:15 Nasal Parainfluen 1 PCR NOT DETECTED 04/18/22 20:15 Nasal Parainfluen 2 PCR NOT DETECTED 04/18/22 20:15 Nasal Parainfluen 3 PCR NOT DETECTED 04/18/22 20:15 Nasal Parainfluen 4 PCR NOT DETECTED 04/18/22 20:15 Nasal RSV (PCR) NOT DETECTED 04/18/22 20:15 Nasal B.pertussis DNA PCR NOT DETECTED 04/18/22 20:15 Nasal C.pneumoniae (PCR) NOT DETECTED 04/18/22 20:15 Chetan Human Metapneumo PCR NOT DETECTED 04/18/22 20:15 Nasal M.pneumoniae (PCR) NOT DETECTED 04/18/22 20:15 Nasal SARS-CoV-2 (PCR) NOT DETECTED 04/18/22 20:15 Blood Type A POSITIVE 04/18/22 19:51 Antibody Screen NEGATIVE 04/18/22 19:51 Crossmatch IS Only See Detail 04/18/22 19:51
[2022-04-21] MEDS ORDERED: DICLOFENAC SODIUM 1% GEL 50 GM TUBE TOP PRN (09:19)
[2022-04-21] MEDS ORDERED: SPIRONOLACTONE 25 MG TABLET PO SCH (09:19)
[2022-04-21] MEDS ORDERED: ASCORBIC ACID 500 MG TABLET PO SCH (10:00)
[2022-04-21] MEDS ORDERED: CYANOCOBALAMIN 500 MCG TABLET PO SCH (10:00)
--- NOTE | 2022-04-21 14:27 | Discharge Plan ---
Discharge Plan Problem Reviewed?: Yes Disposition: Home, Self Care Condition: Fair Diet: Regular Activity Restrictions: Activity as Tolerated Shower Restrictions: No Driving Restrictions: No Instruction Topics: ED Ascites Health Concerns: You were hospitalized to treat the high white blood cells found in your ascites fluid, which was presumed to be from spontaneous bacterial peritonitis (SBP). A sample of the fluid in your belly was taken and sent to the microbiology lab to culture out what bacteria was causing this. No bacteria grew. Therefore you did not have SBP but had Culture-negative Neutrocytic ascites (CNNA). You do not need to be on any oral antibiotics now, as you are being discharged. Please resume all your usual pre-hospital medications. Please keep your upcoming appointments with your Pier Master Assistant. Plan of Treatment: As above. Care Goals: Improvement in symptoms and stabilization are the goals. Assessment: The patient, and at bedside, understand and are agreeable with the plan. Additional Instructions or Follow Up instructions: If you have any new or worsening symptoms, call your Primary Care Provider or your Pier Master Assistant for advice, or come to the ER. No Smoking: If you smoke, Please STOP! Call for help. Follow-up with: Tommy Fermin MD [Primary Care Provider] -
--- NOTE | 2022-04-21 14:30 | DISCHARGE SUMMARY ---
Discharge Summary Admit Date: 04/18/22 Discharge Date: 04/21/22 Discharging Provider: Dr Violette White Primary Care Provider: Dr Tommy Fermin Code Status: Attempt Resuscitation Condition at Discharge: Fair Discharge Disposition: 01 Home, Self Care - HPI History of Present Illness: Mr Whalen is a 66 yo M with hx HTN, CAD, non-alcoholic fatty liver disease. Patient follows with GI Dr Estevez, located in [place], [place]. He had his first paracentesis for symptomatic ascites 2 days ago in [facility]. He was told he had high WBC and referred to ER, cultures were not obtained per ER physician discussion with the GI team in [facility]. Pt reports he has been feeling fatigued and bloated. Denies abd pain, n/v, diarrhea, fevers, chills, cp, sob, cough. Occasional dyspnea on exertion, normally able to ambulate independently. LE swelling has improved greatly since being on lasix and aldactone. Patient has required blood transfusions, last was 3-4 months ago. Denies hematemesis, melena, hematochezia. His CODE status is Fuyll Code. - HOSPITAL COURSE Hospital Course: (1) Culture-negative Neutrocytic ascites His ascites fluid WBC at [facility] was 16 K with 90% neutrophils per ER provider review of patient's "my chart" records. We later learned that that fluid sample was never sent for a culture, per phone call to [facility] lab. Our ER provider did a repeat diagnostic paracentesis, and this also showed elevated WBC of 13K w/ 90% neutrophils. Cultures were sent and the patient was put on empiric iv Cefepime. The final culture report had no bacterial growth, thus he has culture- negative neutrocytic ascites. Antibiotics were stopped and he was discharged, with advice for follow-up with his Premium Representative, which was to be soon. 2) Anemia He has anemia of chronic liver disease and Hx iron deficiency anemia. For an admission Hgb of 6.5, 1 U PRBC was ordered and given in ER. Hgb improved to 7.7.and remained stable. We continued his iron supplements 3) Nonalcoholic fatty liver disease Pt follows w Premium Representative Dr Estevez in [facility]. We continued the patient's Lasix and Spironolactone. 4) Hyponatremia Na was 133-130, likely from his liver disease and possibly from being on loop diuretics. 5) Hypomagnesemia Mg was 1.4, likely from being on loop diuretics. Mg was replaced. 6) Hx HTN BP here was soft and we did not give lisinopril but continued his low dose coreg. 7) CAD We continued ASA and his B-ignacio, and he is no longer taking a statin. If there is severe liver disease, guidelines state he should not be on a non- selective beta-ignacio. - ALLERGIES Allergies/Adverse Reactions: Allergies Allergy/AdvReac Type Severity Reaction Status Date / Time Penicillins Allergy unknown Verified 04/18/22 16:51 - MEDICATIONS Home Medications: Ambulatory Orders Medication Instructions Recorded Confirmed Aspirin 81 mg PO DAILY 11/18/12 04/19/22 Omeprazole [PriLOSEC] 20 mg PO DAILY 11/18/12 04/19/22 lisinopriL [Zestril] 10 mg PO DAILY 11/18/12 04/19/22 Ferrous Sulfate 324 mg PO DAILY 12/12/21 04/19/22 Furosemide [Lasix] 20 mg PO DAILY 12/12/21 04/19/22 Spironolactone [Aldactone] 50 mg PO DAILY 12/12/21 04/19/22 carvediloL [Coreg] 3.125 mg PO BID 12/12/21 04/19/22 Ascorbic Acid/Ascorbate Sodium 500 mg PO DAILY 04/19/22 04/19/22 [Vitamin C 500 mg Tablet Chew] Cholecalciferol [Vitamin D3] 400 unit PO DAILY 04/19/22 04/19/22 Cyanocobalamin (Vitamin B-12) 1,000 mcg PO DAILY 04/19/22 04/19/22 [Vitamin B-12] Diclofenac Sodium 1% Gel [Voltaren 1 applic TOP BID PRN 04/19/22 04/19/22 Gel] Folic Acid 1 mg PO BID 04/19/22 04/19/22 Melatonin/Pyridoxine [Melatonin 5 1 each PO DAILY 04/19/22 04/19/22 mg Tablet] Multivitamin W/Minerals [Theragran 1 each PO DAILY 04/19/22 04/19/22 M] Pyridoxine [Vitamin B-6] 100 mg PO DAILY 04/19/22 04/19/22 Zinc Gluconate [Zinc] 50 mg PO DAILY 04/19/22 04/19/22 - PHYSICAL EXAM AT DISCHARGE General Appearance: positive: No acute distress, Alert Eyes Bilateral: positive: Normal inspection, No scleral icterus ENT: positive: ENT inspection nml, No signs of dehydration, Other (Chronic hoarseness of his voice) Neck: positive: Nml inspection, Thyroid nml, No JVD Respiratory: positive: No respiratory distress, Breath sounds nml Cardiovascular: positive: Regular rate & rhythm, No murmur Abdomen: positive: Other (Severely distended, mildly tense, nontender, positive fluid wave.) Skin: positive: Warm, Dry, Pallor Extremities: positive: Non-tender, No pedal edema Neurologic/Psychiatric: positive: Oriented x3, Motor nml, Other (No asterixis, no nystagmus) - LABS Result Diagrams: 04/21/22 05:11 04/21/22 05:11 - DIAGNOSTIC IMAGING Diagnostic Imaging Results: Final report reviewed - FOLLOW UP Follow Up: See PCP and/or Premium Representative in the next 1-2 weeks for a hospital follow-up visit. - TIME SPENT Time Spent in Discharge (Minutes): 35
[2022-04-21] MEDS ORDERED: FOLIC ACID 1 MG TABLET PO SCH (21:00)
[2022-04-22] MEDS ORDERED: MULTIVITAMIN W/MINERALS TABLET PO SCH (09:00)
[2022-04-22] MEDS ORDERED: CHOLECALCIFEROL 400 UNIT TABLET PO SCH (09:00)
[2022-04-22] MEDS ORDERED: PYRIDOXINE 100 MG TABLET PO SCH (09:00)
[2022-04-22] MEDS ORDERED: SPIRONOLACTONE 25 MG TABLET PO SCH (09:00)
[2022-04-22] MEDS ORDERED: ZINC SULFATE 220 MG CAPSULE PO SCH (09:00)
== END 2022-04-21 15:44 | disposition home or self-care (01) | DRG 948 ==
LOC: ED 16:37 → MS2 20:40
PROVIDERS: ADMIT Student in an Organized Health Care Education/Training Program; ATTEND Internal Medicine
DX: K65.2 Spontaneous bacterial peritonitis (principal); R18.8 Other ascites; E87.1 Hypo-osmolality and hyponatremia; K76.0 Fatty (change of) liver, not elsewhere classified; D63.8 Anemia in other chronic diseases classified elsewhere; D50.9 Iron deficiency anemia, unspecified; D64.9 Anemia, unspecified; Z20.822 Contact with and (suspected) exposure to COVID-19; E83.42 Hypomagnesemia; I10 Essential (primary) hypertension; I25.10 Atherosclerotic heart disease of native coronary artery without angina pectoris; I25.2 Old myocardial infarction; Z95.5 Presence of coronary angioplasty implant and graft
CPT/HCPCS: 36415; 49082; 80048; 80053; 81001; 83605; 83735; 84100; 85025; 86850; 86900; 86901; 86920; 87040; 87070; 87205; 87633; 89051; 96365; 99284; 99285; A9270; P9016; 87086

== ENCOUNTER 2022-06-27 15:07 | Emergency (ER) | payer MEDICARE, OTHER ==
[2022-06-27 15:41] LABS: BASOPHILS # (AUTO) 0.1 10^3/uL (0.0-0.1); BASOPHILS % (AUTO) 1.3 %; EOSINOPHILS # (AUTO) 0.1 10^3/uL (0.0-0.7); EOSINOPHILS % (AUTO) 2.5 %; HCT - HEMATOCRIT 27.2 % (42.0-52.0); HGB - HEMOGLOBIN 8.2 g/dL (14.0-18.0); LYMPHOCYTES # (AUTO) 1.4 10^3/uL (1.5-3.5); LYMPHOCYTES % (AUTO) 25.1 %; MEAN CORPUSCULAR HEMOGLOBIN 30.3 pg (27.0-31.0); MEAN CORPUSCULAR HGB CONC 30.1 g/dL (32.0-36.0); MEAN CORPUSCULAR VOLUME 100.4 fL (80.0-94.0); MEAN PLATELET VOLUME 9.3 fL (7.4-11.4); MONOCYTES # (AUTO) 0.6 10^3/uL (0.0-1.0); MONOCYTES % (AUTO) 10.6 %; NEUTROPHILS # (AUTO) 3.3 10^3/uL (1.5-6.6); NEUTROPHILS % (AUTO) 59.8 %; PLT - PLATELET COUNT 216 10^3/uL (130-450); RED BLOOD COUNT 2.71 10^6/uL (4.70-6.10); RED CELL DISTRIBUTION WIDTH 17.5 % (12.0-15.0); WHITE BLOOD COUNT 5.6 x10^3/uL (4.8-10.8)
[2022-06-27 15:48] LABS: INR 1.8 (0.8-1.2)
[2022-06-27 16:12] LABS: ALBUMIN 1.3 g/dL (3.2-5.5); ALBUMIN/GLOBULIN RATIO 0.1 (1.0-2.2); BILIRUBIN,TOTAL 0.9 mg/dL (0.2-1.0); CALCIUM 10.2 mg/dL (8.5-10.3); CREATININE 1.8 mg/dL (0.6-1.2); POTASSIUM 4.6 mmol/L (3.5-5.0); TOTAL PROTEIN 12.8 g/dL (6.7-8.2)
[2022-06-27] MEDS ORDERED: SODIUM CHLORIDE 0.9% 500 ML IV STA (17:24)
--- NOTE | 2022-06-27 17:26 | ED Physician Documentation ---
History of Present Illness - Stated complaint Stated Complaint: WEAKNESS - Chief complaint Chief Complaint: Neuro - History obtained from History obtained from: Patient, Family - History of Present Illness Pain level max: 0 Pain level now: 0 - Additonal information Additional information: 66-year-old male with a history of liver cirrhosis presents to the emergency department with generalized weakness for the past 2 weeks. He states he does supposed tired. He saw his PCP last week, no changes made to his medication. No fevers. No chills. Occasionally feels mildly short of breath. No abdominal pain. No cough or congestion. No diarrhea or constipation. No urinary symptoms. Review of Systems Constitutional: denies: Fever, Chills GI: denies: Vomiting, Hematemesis, Bloody / black stool Skin: denies: Rash Musculoskeletal: denies: Neck pain, Back pain Neurologic: denies: Headache PD PAST MEDICAL HISTORY - Past Medical History Past Medical History: Yes Cardiovascular: Hypertension, Coronary artery disease, [place] Respiratory: None Neuro: None Endocrine/Autoimmune: None GI: GERD : None HEENT: None Psych: None Musculoskeletal: None Derm: None - Past Surgical History Past Surgical History: Yes Ortho: Arthroscopic surgery Cardiovascular: Coronary stent - Present Medications Home Medications: Ambulatory Orders Medication Instructions Recorded Confirmed Aspirin 81 mg PO DAILY 11/18/12 04/19/22 Omeprazole [PriLOSEC] 20 mg PO DAILY 11/18/12 04/19/22 lisinopriL [Zestril] 10 mg PO DAILY 11/18/12 04/19/22 Ferrous Sulfate 324 mg PO DAILY 12/12/21 04/19/22 Furosemide [Lasix] 20 mg PO DAILY 12/12/21 04/19/22 Spironolactone [Aldactone] 50 mg PO DAILY 12/12/21 04/19/22 carvediloL [Coreg] 3.125 mg PO BID 12/12/21 04/19/22 Ascorbic Acid/Ascorbate Sodium 500 mg PO DAILY 04/19/22 04/19/22 [Vitamin C 500 mg Tablet Chew] Cholecalciferol [Vitamin D3] 400 unit PO DAILY 04/19/22 04/19/22 Cyanocobalamin (Vitamin B-12) 1,000 mcg PO DAILY 04/19/22 04/19/22 [Vitamin B-12] Diclofenac Sodium 1% Gel [Voltaren 1 applic TOP BID PRN 04/19/22 04/19/22 Gel] Folic Acid 1 mg PO BID 04/19/22 04/19/22 Melatonin/Pyridoxine [Melatonin 5 1 each PO DAILY 04/19/22 04/19/22 mg Tablet] Multivitamin W/Minerals [Theragran 1 each PO DAILY 04/19/22 04/19/22 M] Pyridoxine [Vitamin B-6] 100 mg PO DAILY 04/19/22 04/19/22 Zinc Gluconate [Zinc] 50 mg PO DAILY 04/19/22 04/19/22 - Allergies Allergies/Adverse Reactions: Allergies Allergy/AdvReac Type Severity Reaction Status Date / Time Penicillins Allergy unknown Verified 04/18/22 16:51 - Social History Does the pt smoke?: No Smoking Status: Never smoker Does the pt drink ETOH?: No Does the pt have substance abuse?: No - Immunizations Immunizations are current?: Yes - POLST Patient has POLST: No PD ED PE NORMAL - Vitals Vital signs reviewed: Yes - General General: Alert and oriented X 3, No acute distress - HEENT HEENT: PERRL, Pharynx benign, Other (Dry lips and tongue) - Neck Neck: Supple, no meningeal sign - Cardiac Cardiac: RRR, Strong equal pulses - Respiratory Respiratory: No respiratory distress, Clear bilaterally - Abdomen Abdomen: Other (Mildly distended abdomen, soft. Nontender) - Back Back: No CVA TTP, No spinal TTP - Derm Derm: Warm and dry, No rash - Extremities Extremities: No calf tenderness / cord - Neuro Neuro: Alert and oriented X 3 Results - Vitals Vitals: Vital Signs - 24 hr 06/27/22 06/27/22 06/27/22 15:11 16:34 16:35 Temperature 36.9 C Heart Rate 78 Respiratory 18 16 16 Rate Blood Pressure 130/64 O2 Saturation 100 06/27/22 06/27/22 06/27/22 17:04 18:08 19:00 Temperature 36.8 C Heart Rate 75 72 Respiratory 15 17 16 Rate Blood Pressure 117/74 133/66 H O2 Saturation 99 99 Oxygen O2 Source Room air - Labs Labs: Laboratory Tests 06/27/22 06/27/22 06/27/22 15:30 15:30 15:30 WBC 5.6 RBC 2.71 L Hgb 8.2 L Hct 27.2 L MCV 100.4 H MCH 30.3 MCHC 30.1 L RDW 17.5 H Plt Count 216 MPV 9.3 Neut # (Auto) 3.3 Lymph # (Auto) 1.4 L [place] # (Auto) 0.6 Eos # (Auto) 0.1 Baso # (Auto) 0.1 Absolute Nucleated RBC 0.00 Nucleated RBC % 0.0 PT 19.0 H INR 1.8 H APTT 41.0 H Sodium 128 L Potassium 4.6 Chloride 97 L Carbon Dioxide 26 Anion Gap 5.0 L BUN 35 H Creatinine 1.8 H Estimated GFR (MDRD) 38 L Glucose 116 H Calcium 10.2 Phosphorus Magnesium Total Bilirubin 0.9 AST 40 ALT 14 Alkaline Phosphatase 52 Ammonia Total Protein 12.8 H Albumin 1.3 L Globulin 11.5 H Albumin/Globulin Ratio 0.1 L Lipase 42 06/27/22 06/27/22 17:05 17:05 WBC RBC Hgb Hct MCV MCH MCHC RDW Plt Count MPV Neut # (Auto) Lymph # (Auto) [place] # (Auto) Eos # (Auto) Baso # (Auto) Absolute Nucleated RBC Nucleated RBC % PT INR APTT Sodium Potassium Chloride Carbon Dioxide Anion Gap BUN Creatinine Estimated GFR (MDRD) Glucose Calcium Phosphorus 3.9 Magnesium 1.6 L Total Bilirubin AST ALT Alkaline Phosphatase Ammonia 79.4 H Total Protein Albumin Globulin Albumin/Globulin Ratio Lipase - Rads (name of study) cxr Relevant Findings:: Final report received, See rad report PD Medical Decision Making - ED course Complexity details: reviewed results, re-evaluated patient, considered differential, d/w patient, d/w family ED course: 66-year-old male with liver cirrhosis presents with weakness for the past 2 weeks. CBC shows a chronic anemia, hemoglobin 8.2 which is actually higher than the patient normally is. He is usually in the sevens. Coagulation studies show elevated PT, INR and APTT consistent with his cirrhosis. Chemistries show a mild hyponatremia, creatinine elevated above his normal baseline of 1.3-1.4. Is 1.8 today. Hypomagnesemia, 1.6. Elevated ammonia level. The elevated total protein and low albumin are chronic. The patient appears to be likely over diuresed by his laboratory studies. He was given IV fluids and magnesium replaced. Patient's symptoms all fully resolved and he states that he feels much better. He would like to go home at this time. Family is comfortable taking him home. No evidence of SBP, infection, sepsis. Patient counseled regarding signs and symptoms for which I believe and urgent re-evaluation would be necessary. Patient with good understanding of and agreement to plan and is comfortable going home at this time This document was made in part using voice recognition software. While efforts are made to proofread this document, sound alike and grammatical errors may occur. Departure - Departure Disposition: 01 Home, Self Care Clinical Impression: Hypomagnesemia, Dehydration Condition: Good Instructions: ED Dehydration Follow-Up: your,doctor in 3 days [Other] Comments: Please follow-up with your doctor for further care. Please make sure you are drinking plenty of fluids at home. You do have anemia, but this is chronic, your hemoglobin is actually better than normal at 8.2 today. Your creatinine, kidney function, is slightly higher than usual, your normal level is approximately 1.63-1.4, you are a 1.8 today, this is consistent with dehydration your sodium levels were also mildly low. Your magnesium level was also mildly low. You were given an infusion of saline and magnesium which should help with both of these. Please return if you worsen. Discharge Date/Time: 06/27/22 19:26
[2022-06-27 17:42] LABS: MAGNESIUM 1.6 mg/dL (1.7-2.8); PHOSPHORUS 3.9 mg/dL (2.5-4.6)
[2022-06-27] MEDS ORDERED: MAGNESIUM SULFATE 2 GRAM 2 GM/50 ML BAG IV ONE (17:52)
--- NOTE | 2022-06-27 18:00 | XRAY Report ---
PROCEDURE: Chest 1 View X-Ray INDICATIONS: dyspnea TECHNIQUE: One view of the chest was acquired. COMPARISON: None. FINDINGS: Surgical changes and devices: None. Lungs and pleura: No pleural effusions or pneumothorax. There is pulmonary congestion. No definite f ocal infiltrate. Mediastinum: Mediastinal contours appear normal. Heart size is normal. Bones and chest wall: No suspicious bony lesions. Overlying soft tissues appear unremarkable. IMPRESSION: Mild congestion. No definite focal infiltrate. No pleural effusion or pneumothorax. Reviewed by: Wade Ryan MD on 06/27/2022 4:58 PM AKDT Approved by: Wade Ryan MD on 06/27/2022 4:58 PM AKDT Station ID: [id number]
[2022-06-27 19:02] VITALS: BP 133/66
== END 2022-06-27 19:26 | disposition home or self-care (01) ==
LOC: ED 15:07
DX: E83.42 Hypomagnesemia (principal); E86.0 Dehydration; E87.1 Hypo-osmolality and hyponatremia
CPT/HCPCS: 36415; 80053; 82140; 83690; 83735; 84100; 85025; 85610; 85730; 96365; 99284

== ENCOUNTER 2022-07-11 15:46 | Outpatient (CLI) | payer MEDICARE, OTHER ==
[2022-07-11 17:47] LABS: BASOPHILS # (AUTO) 0.1 10^3/uL (0.0-0.1); BASOPHILS % (AUTO) 0.7 %; EOSINOPHILS # (AUTO) 0.2 10^3/uL (0.0-0.7); HCT - HEMATOCRIT 27.9 % (42.0-52.0); HGB - HEMOGLOBIN 8.7 g/dL (14.0-18.0); LYMPHOCYTES # (AUTO) 1.6 10^3/uL (1.5-3.5); LYMPHOCYTES % (AUTO) 20.1 %; MEAN CORPUSCULAR HGB CONC 31.2 g/dL (32.0-36.0); MEAN CORPUSCULAR VOLUME 99.3 fL (80.0-94.0); MEAN PLATELET VOLUME 9.8 fL (7.4-11.4); MONOCYTES # (AUTO) 0.6 10^3/uL (0.0-1.0); MONOCYTES % (AUTO) 7.1 %; NEUTROPHILS # (AUTO) 5.7 10^3/uL (1.5-6.6); NEUTROPHILS % (AUTO) 69.5 %; PLT - PLATELET COUNT 218 10^3/uL (130-450); RED BLOOD COUNT 2.81 10^6/uL (4.70-6.10); RED CELL DISTRIBUTION WIDTH 18.5 % (12.0-15.0); WHITE BLOOD COUNT 8.2 x10^3/uL (4.8-10.8)
[2022-07-11 18:01] LABS: INR 1.9 (0.8-1.2); PT - PROTHROMBIN TIME 19.9 secs (9.9-12.6)
[2022-07-11 18:23] LABS: PARTIAL THROMBOPLASTIN TIME 38.5 secs (24.9-33.3)
== END 2022-07-11 15:47 | disposition home or self-care (01) ==
LOC: LAB.N 15:46
PROVIDERS: ATTEND Physician Assistant
DX: K74.69 Other cirrhosis of liver (principal); R53.83 Other fatigue
CPT/HCPCS: 36415; 80053; 81599; 82140; 83735; 84443; 85025; 85610; 85730

== ENCOUNTER 2022-07-13 12:39 | Outpatient (CLI) | payer MEDICARE, OTHER ==
[2022-07-13 18:18] LABS: THYROID STIMULATING HORMONE 3.67 uIU/mL (0.34-5.60)
[2022-07-13 18:20] LABS: ALBUMIN 1.3 g/dL (3.2-5.5); ALBUMIN/GLOBULIN RATIO 0.1 (1.0-2.2); CALCIUM 9.2 mg/dL (8.5-10.3); CREATININE 1.9 mg/dL (0.6-1.2); MAGNESIUM 2.3 mg/dL (1.7-2.8); POTASSIUM 4.7 mmol/L (3.5-5.0); TOTAL PROTEIN 12.5 g/dL (6.7-8.2)
== END 2022-07-13 12:40 | disposition home or self-care (01) ==
LOC: LAB.N 12:39
PROVIDERS: ATTEND Physician Assistant
DX: K74.69 Other cirrhosis of liver (principal); R53.83 Other fatigue
CPT/HCPCS: 36415; 80053; 83735; 84443

== ENCOUNTER 2022-07-24 15:38 | Outpatient (CLI) | payer MEDICARE, OTHER | END 2022-07-24 15:39 | disposition home or self-care (01) | LOC: LAB.N 15:38 | PROVIDERS: ATTEND Family Medicine | DX: Z53.9 Procedure and treatment not carried out, unspecified reason (principal) ==

== ENCOUNTER 2022-07-24 18:24 | Outpatient (CLI) | payer MEDICARE, OTHER ==
[2022-07-24 19:17] LABS: CALCIUM 8.7 mg/dL (8.5-10.3); CREATININE 1.4 mg/dL (0.6-1.2); POTASSIUM 4.3 mmol/L (3.5-5.0)
== END 2022-07-24 18:25 | disposition home or self-care (01) ==
LOC: LAB 18:24
PROVIDERS: ATTEND Family Medicine
DX: E87.1 Hypo-osmolality and hyponatremia (principal); R53.83 Other fatigue; K74.69 Other cirrhosis of liver
CPT/HCPCS: 36415; 80048; 82140; 83930; 83935; 84300

== ENCOUNTER 2022-07-25 08:00 | Outpatient (CLI) | payer MEDICARE, OTHER | END 2022-07-25 23:59 | disposition home or self-care (01) | LOC: LAB.N 08:00 | PROVIDERS: ATTEND Family Medicine | DX: E87.1 Hypo-osmolality and hyponatremia (principal) | CPT/HCPCS: 83935; 84300 ==

== ENCOUNTER 2022-09-14 09:25 | Outpatient (CLI) | payer MEDICARE, OTHER ==
[2022-09-14 12:16] LABS: BASOPHILS # (AUTO) 0.1 10^3/uL (0.0-0.1); BASOPHILS % (AUTO) 0.6 %; EOSINOPHILS # (AUTO) 0.1 10^3/uL (0.0-0.7); EOSINOPHILS % (AUTO) 0.9 %; HCT - HEMATOCRIT 27.5 % (42.0-52.0); HGB - HEMOGLOBIN 8.1 g/dL (14.0-18.0); LYMPHOCYTES # (AUTO) 1.4 10^3/uL (1.5-3.5); LYMPHOCYTES % (AUTO) 12.9 %; MEAN CORPUSCULAR HEMOGLOBIN 29.5 pg (27.0-31.0); MEAN CORPUSCULAR HGB CONC 29.5 g/dL (32.0-36.0); MEAN PLATELET VOLUME 9.8 fL (7.4-11.4); MONOCYTES # (AUTO) 0.8 10^3/uL (0.0-1.0); MONOCYTES % (AUTO) 7.1 %; NEUTROPHILS # (AUTO) 8.4 10^3/uL (1.5-6.6); NEUTROPHILS % (AUTO) 77.3 %; PLT - PLATELET COUNT 227 10^3/uL (130-450); RED BLOOD COUNT 2.75 10^6/uL (4.70-6.10); RED CELL DISTRIBUTION WIDTH 18.3 % (12.0-15.0); WHITE BLOOD COUNT 10.9 x10^3/uL (4.8-10.8)
[2022-09-14 12:23] LABS: ALBUMIN 1.2 g/dL (3.2-5.5); ALBUMIN/GLOBULIN RATIO 0.1 (1.0-2.2); BILIRUBIN,TOTAL 0.9 mg/dL (0.2-1.0); CALCIUM 8.6 mg/dL (8.5-10.3); CREATININE 1.2 mg/dL (0.6-1.2); POTASSIUM 5.2 mmol/L (3.5-5.0); TOTAL PROTEIN 11.7 g/dL (6.7-8.2)
[2022-09-14 12:44] LABS: ESTIMATED AVERAGE GLUCOSE 97 mg/dL (70-100)
== END 2022-09-14 09:26 | disposition home or self-care (01) ==
LOC: LAB.N 09:25
PROVIDERS: ATTEND Family Medicine
DX: E11.59 Type 2 diabetes mellitus with other circulatory complications (principal); E87.1 Hypo-osmolality and hyponatremia; K76.6 Portal hypertension; E83.42 Hypomagnesemia; K76.0 Fatty (change of) liver, not elsewhere classified; K74.60 Unspecified cirrhosis of liver
CPT/HCPCS: 36415; 80053; 83036; 85025

== ENCOUNTER 2022-12-25 10:37 | Outpatient (CLI) | payer MEDICARE, OTHER ==
[2022-12-25 17:53] LABS: BASOPHILS # (AUTO) 0.1 10^3/uL (0.0-0.1); EOSINOPHILS # (AUTO) 0.1 10^3/uL (0.0-0.7); HGB - HEMOGLOBIN 8.9 g/dL (14.0-18.0); LYMPHOCYTES % (AUTO) 20.1 %; MEAN CORPUSCULAR HEMOGLOBIN 28.6 pg (27.0-31.0); MEAN CORPUSCULAR HGB CONC 29.7 g/dL (32.0-36.0); MEAN CORPUSCULAR VOLUME 96.5 fL (80.0-94.0); MEAN PLATELET VOLUME 9.9 fL (7.4-11.4); MONOCYTES # (AUTO) 0.4 10^3/uL (0.0-1.0); MONOCYTES % (AUTO) 7.9 %; NEUTROPHILS # (AUTO) 3.5 10^3/uL (1.5-6.6); NEUTROPHILS % (AUTO) 68.4 %; PLT - PLATELET COUNT 219 10^3/uL (130-450); RED BLOOD COUNT 3.11 10^6/uL (4.70-6.10); RED CELL DISTRIBUTION WIDTH 17.9 % (12.0-15.0); WHITE BLOOD COUNT 5.1 x10^3/uL (4.8-10.8)
[2022-12-25 17:55] LABS: INR 1.4 (0.8-1.2); PT - PROTHROMBIN TIME 15.3 secs (9.9-12.6)
[2022-12-25 18:19] LABS: ALBUMIN 1.8 g/dL (3.2-5.5)
[2022-12-25 18:31] LABS: THYROID STIMULATING HORMONE 3.48 uIU/mL (0.34-5.60)
[2022-12-25 18:36] LABS: ALBUMIN/GLOBULIN RATIO 0.2 (1.0-2.2); BILIRUBIN,TOTAL 0.6 mg/dL (0.2-1.0); CREATININE 1.2 mg/dL (0.6-1.3); POTASSIUM 5.1 mmol/L (3.5-4.5)
== END 2022-12-25 10:38 | disposition home or self-care (01) ==
LOC: LAB.N 10:37
PROVIDERS: ATTEND Family Medicine
DX: E87.1 Hypo-osmolality and hyponatremia (principal); I85.00 Esophageal varices without bleeding; K76.6 Portal hypertension; E83.42 Hypomagnesemia; K76.0 Fatty (change of) liver, not elsewhere classified; E03.9 Hypothyroidism, unspecified; I25.10 Atherosclerotic heart disease of native coronary artery without angina pectoris; K74.60 Unspecified cirrhosis of liver; R18.8 Other ascites
CPT/HCPCS: 36415; 80053; 84443; 85025; 85610

== ENCOUNTER 2023-03-01 08:56 | Inpatient (IN) | payer MEDICARE, OTHER ==
--- NOTE | 2023-03-01 09:25 | ED Physician Documentation ---
PD HPI DYSPNEA - Stated complaint Stated Complaint: BACK PX/SOA - History obtained from History obtained from: Patient, Family (spouse) - History of Present Illness Timing - onset: How many days ago (4 days graudal worsening dyspnea. Has been sleeping in recliner to be upright. History of ascites with paracentesis every 3 weeks. Had that on Sat. Still with worse dyspnea and has had confusion since last night, worse today. Home oximeter showing sats 89-90% last evning, lower than usual.) Timing - duration: Days (4) Timing - details: Gradual onset, Still present Inciting event(s): No: Out of meds (he was stopped from his Lasix about 3 weeks ago by PCP since he was doing well, per his . Still on Spironolactone and other meds. No recent URI symptoms, fevers, cough.) Improved by: Sitting up Worsened by: Laying flat. No: Coughing Associated symptoms: Bilateral edema (ongoing, worse recent.). No: Fever, Cough, Hemoptysis, Wheezing Recently seen: Clinic (had paracentesis outpt scheduled 2 days ago without problems.) Review of Systems Unable to obtain: AMS (confused so much info from his .) Constitutional: denies: Fever Nose: denies: Congestion Cardiac: reports: Chest pain / pressure, Pedal edema (chronic but worse recently). denies: Palpitations, Calf pain Respiratory: reports: Dyspnea. denies: Cough GI: denies: Vomiting, Diarrhea, Bloody / black stool PD PAST MEDICAL HISTORY - Past Medical History Cardiovascular: Congestive heart failure, Hypertension, Coronary artery disease, [place] Respiratory: None Neuro: None Endocrine/Autoimmune: None GI: GERD : None HEENT: None Psych: None Musculoskeletal: None Derm: None - Past Surgical History Past Surgical History: Yes Ortho: Arthroscopic surgery Cardiovascular: Coronary stent - Present Medications Home Medications: Ambulatory Orders Medication Instructions Recorded Confirmed Aspirin 81 mg PO DAILY 11/18/12 03/01/23 Spironolactone [Aldactone] 25 mg PO DAILY 12/12/21 04/19/22 carvediloL [Coreg] 3.125 mg PO BID 12/12/21 03/01/23 Ascorbic Acid/Ascorbate Sodium 500 mg PO DAILY 04/19/22 04/19/22 [Vitamin C 500 mg Tablet Chew] Cholecalciferol [Vitamin D3] 400 unit PO DAILY 04/19/22 04/19/22 Cyanocobalamin (Vitamin B-12) 1,000 mcg PO DAILY 04/19/22 04/19/22 [Vitamin B-12] Diclofenac Sodium 1% Gel [Voltaren 1 applic TOP BID PRN 04/19/22 03/01/23 Gel] Folic Acid 1 mg PO BID 04/19/22 03/01/23 Melatonin/Pyridoxine [Melatonin 5 1 each PO DAILY 04/19/22 04/19/22 mg Tablet] Multivitamin W/Minerals [Theragran 1 each PO DAILY 04/19/22 04/19/22 M] Pyridoxine [Vitamin B-6] 100 mg PO DAILY 04/19/22 04/19/22 Zinc Gluconate [Zinc] 50 mg PO DAILY 04/19/22 04/19/22 Pantoprazole [Protonix] 40 mg PO QDAC 03/01/23 03/01/23 - Allergies Allergies/Adverse Reactions: Allergies Allergy/AdvReac Type Severity Reaction Status Date / Time Penicillins Allergy unknown Verified 04/18/22 16:51 - Living Situation Living Situation: reports: With spouse/s.o. Living Arrangement: reports: At home - Social History Does the pt smoke?: No Smoking Status: Never smoker Does the pt drink ETOH?: No Does the pt have substance abuse?: No - Immunizations Immunizations are current?: Yes - POLST Patient has POLST: No PD ED PE NORMAL - Vitals Vital signs reviewed: Yes - General General: Alert and oriented X 3, Well developed/nourished, Other (appears in distress with some labored breathing, and fast resp rate. ) - HEENT HEENT: Pharynx benign - Neck Neck: Supple, no meningeal sign, No adenopathy - Cardiac Cardiac: No murmur. No: RRR (reegular but slow rate. ) - Respiratory Respiratory: No: Clear bilaterally (fine crackles at bases and decreased sounds right base. ) - Abdomen Abdomen: Soft, Non tender, Other (moderate distended without tenderness. Decreased bowel sounds. ) - Back Back: No CVA TTP - Derm Derm: Warm and dry. No: Normal color (dusky color both lower legs but adequate cap refill at toes and faint DP pusles. ) - Extremities Extremities: Normal ROM s pain, No calf tenderness / cord, Other (2+ edema in both lower legs. ) - Neuro Neuro: No: Alert and oriented X 3 (oriented to person and not place/time. simple answers to questions. ) Results - Vitals Vitals: Vital Signs - 24 hr 03/01/23 03/01/23 03/01/23 09:13 11:07 12:06 Temperature 35.5 C L Heart Rate 49 L 76 76 Respiratory 30 H 18 19 Rate Blood Pressure 119/56 L 121/60 122/69 O2 Saturation 76 L 94 98 If not protocol 2 1.5 : Oxygen Flow, liters/minute 03/01/23 03/01/23 03/01/23 13:40 14:32 15:11 Temperature 36.0 C L Heart Rate 74 75 76 Respiratory 21 20 18 Rate Blood Pressure 109/63 103/65 112/59 L O2 Saturation 100 100 100 If not protocol 1.5 1.5 : Oxygen Flow, liters/minute Oxygen O2 Source Room air - Labs Labs: Laboratory Tests 03/01/23 03/01/23 03/01/23 10:08 10:11 10:11 WBC 4.5 L RBC 3.07 L Hgb 8.4 L Hct 29.6 L MCV 96.4 H MCH 27.4 MCHC 28.4 L RDW 21.1 H Plt Count 169 MPV 10.9 Neut # (Auto) 3.4 Lymph # (Auto) 0.6 L [place] # (Auto) 0.4 Eos # (Auto) 0.2 Baso # (Auto) 0.0 Absolute Nucleated RBC 0.00 Nucleated RBC % 0.0 Manual Slide Review Indicated RBC Morph Micro Appear 4+ ANISOCYTOSIS VBG pH VBG pCO2 VBG pO2 VBG HCO3 VBG Total CO2 VBG O2 Saturation VBG Base Excess Sodium 129 L Potassium 5.8 H Chloride 103 Carbon Dioxide 24 Anion Gap 2.0 L BUN 36 H Creatinine 1.6 H Estimated GFR (MDRD) 43 L Glucose 97 Calcium 8.4 L Magnesium 1.5 L Total Bilirubin 1.0 AST 57 H ALT 14 Alkaline Phosphatase 59 Troponin I High Sens B-Natriuretic Peptide Total Protein 10.4 H Albumin 1.7 L Globulin 8.7 H Albumin/Globulin Ratio 0.2 L Lipase 49 Nasal Adenovirus (PCR) NOT DETECTED Nasal B. parapertussis DNA (PCR) NOT DETECTED Nasal Coronavir 229E PCR NOT DETECTED Nasal Coronavir HKU1 PCR NOT DETECTED Nasal Coronavir NL63 PCR NOT DETECTED Nasal Coronavir OC43 PCR NOT DETECTED Nasal Enterovir/Rhinovir PCR NOT DETECTED Nasal Influenza B PCR NOT DETECTED Nasal Influenza A PCR NOT DETECTED Nasal Parainfluen 1 PCR NOT DETECTED Nasal Parainfluen 2 PCR NOT DETECTED Nasal Parainfluen 3 PCR NOT DETECTED Nasal Parainfluen 4 PCR NOT DETECTED Nasal RSV (PCR) NOT DETECTED Nasal B.pertussis DNA PCR NOT DETECTED Nasal C.pneumoniae (PCR) NOT DETECTED [place] Human Metapneumo PCR NOT DETECTED Nasal M.pneumoniae (PCR) NOT DETECTED Nasal SARS-CoV-2 (PCR) NOT DETECTED 03/01/23 03/01/23 03/01/23 10:11 10:11 10:11 WBC RBC Hgb Hct MCV MCH MCHC RDW Plt Count MPV Neut # (Auto) Lymph # (Auto) [place] # (Auto) Eos # (Auto) Baso # (Auto) Absolute Nucleated RBC Nucleated RBC % Manual Slide Review RBC Morph Micro Appear VBG pH 7.479 H VBG pCO2 34.3 L VBG pO2 41.8 VBG HCO3 24.9 VBG Total CO2 26.0 VBG O2 Saturation 78.3 VBG Base Excess 1.6 Sodium Potassium Chloride Carbon Dioxide Anion Gap BUN Creatinine Estimated GFR (MDRD) Glucose Calcium Magnesium Total Bilirubin AST ALT Alkaline Phosphatase Troponin I High Sens 28.1 H* B-Natriuretic Peptide 1043 H Total Protein Albumin Globulin Albumin/Globulin Ratio Lipase Nasal Adenovirus (PCR) Nasal B. parapertussis DNA (PCR) Nasal Coronavir 229E PCR Nasal Coronavir HKU1 PCR Nasal Coronavir NL63 PCR Nasal Coronavir OC43 PCR Nasal Enterovir/Rhinovir PCR Nasal Influenza B PCR Nasal Influenza A PCR Nasal Parainfluen 1 PCR Nasal Parainfluen 2 PCR Nasal Parainfluen 3 PCR Nasal Parainfluen 4 PCR Nasal RSV (PCR) Nasal B.pertussis DNA PCR Nasal C.pneumoniae (PCR) [place] Human Metapneumo PCR Nasal M.pneumoniae (PCR) Nasal SARS-CoV-2 (PCR) 03/01/23 03/01/23 14:16 14:16 WBC RBC Hgb Hct MCV MCH MCHC RDW Plt Count MPV Neut # (Auto) Lymph # (Auto) [place] # (Auto) Eos # (Auto) Baso # (Auto) Absolute Nucleated RBC Nucleated RBC % Manual Slide Review RBC Morph Micro Appear VBG pH VBG pCO2 VBG pO2 VBG HCO3 VBG Total CO2 VBG O2 Saturation VBG Base Excess Sodium 131 L Potassium 5.1 H Chloride 103 Carbon Dioxide 27 Anion Gap 1.0 L BUN 36 H Creatinine 1.6 H Estimated GFR (MDRD) 43 L Glucose 84 Calcium 8.4 L Magnesium 1.7 Total Bilirubin AST ALT Alkaline Phosphatase Troponin I High Sens 27.5 H* B-Natriuretic Peptide Total Protein Albumin Globulin Albumin/Globulin Ratio Lipase Nasal Adenovirus (PCR) Nasal B. parapertussis DNA (PCR) Nasal Coronavir 229E PCR Nasal Coronavir HKU1 PCR Nasal Coronavir NL63 PCR Nasal Coronavir OC43 PCR Nasal Enterovir/Rhinovir PCR Nasal Influenza B PCR Nasal Influenza A PCR Nasal Parainfluen 1 PCR Nasal Parainfluen 2 PCR Nasal Parainfluen 3 PCR Nasal Parainfluen 4 PCR Nasal RSV (PCR) Nasal B.pertussis DNA PCR Nasal C.pneumoniae (PCR) [place] Human Metapneumo PCR Nasal M.pneumoniae (PCR) Nasal SARS-CoV-2 (PCR) - Rads (name of study) chest xray Relevant Findings:: Prelim report reviewed (rigth effusion. Congested vascular findings. Most likely CHF with effusion. ), EMP independent interpretation of test PD Medical Decision Making - ED course Complexity details: re-evaluated patient (he is brething more comfortably, with unlabored breathing. Rouses easily. Sats 98-100% on NC 2 lpm. Has urinated over 700 ml outpt. Still has wet lung sounds. I feel he will need further diuresing to be sure improved enough. ), considered differential (progressive dyspnea and orthopnea. Has been off lasix for 2-3 weeks, still spironolactone. Has nonalcoholic cirrhosis. ), d/w patient, d/w family (spouse, who gives info about symptoms, progressin and ROS.) Reviewed Lab Results: As the patient had been here in the ER awaiting opening for beds, he had diuresed a reasonable amount of 800 mL and is breathing better. I rechecked chemistry panel and his potassium level has improved from somewhat elevated to just mildly elevated. It is not too low. His magnesium has improved with an IV dosing. His creatinine is actually the same and is not worsening. His chemistry panel does seem stable and improving. A repeat troponin remained flat at minimally elevated above normal. Initial was 28 and repeat is 27. No signs of acute heart injury. ED course: No beds available currently but expecting a possible discharge. Hospitalist said to give some time and see how the bed availability becomes this afternoon. Departure - Departure Disposition: 66 [facility] DC/Xfer Clinical Impression: Dyspnea, Congestive heart failure, Confusion, Non-alcoholic cirrhosis Forms: PCP List
[2023-03-01] MEDS ORDERED: FUROSEMIDE 40 MG/4 ML VIAL IVP STA (09:54)
[2023-03-01 10:17] LABS: VBG BASE EXCESS 1.6 mmol/L (-2 - +2); VBG HCO3 24.9 mmol/L (23-28); VBG OXYGEN SATURATION 78.3 % (60-80); VBG PCO2 34.3 mmHg (41-51); VBG PH 7.479 (7.31-7.41); VBG PO2 41.8 mmHg (25-47)
[2023-03-01 10:18] LABS: BASOPHILS % (AUTO) 0.4 %; EOSINOPHILS # (AUTO) 0.2 10^3/uL (0.0-0.7); EOSINOPHILS % (AUTO) 3.3 %; HCT - HEMATOCRIT 29.6 % (42.0-52.0); HGB - HEMOGLOBIN 8.4 g/dL (14.0-18.0); LYMPHOCYTES # (AUTO) 0.6 10^3/uL (1.5-3.5); LYMPHOCYTES % (AUTO) 13.7 %; MEAN CORPUSCULAR HEMOGLOBIN 27.4 pg (27.0-31.0); MEAN CORPUSCULAR HGB CONC 28.4 g/dL (32.0-36.0); MEAN CORPUSCULAR VOLUME 96.4 fL (80.0-94.0); MEAN PLATELET VOLUME 10.9 fL (7.4-11.4); MONOCYTES # (AUTO) 0.4 10^3/uL (0.0-1.0); MONOCYTES % (AUTO) 7.9 %; NEUTROPHILS # (AUTO) 3.4 10^3/uL (1.5-6.6); NEUTROPHILS % (AUTO) 74.3 %; PLT - PLATELET COUNT 169 10^3/uL (130-450); RED BLOOD COUNT 3.07 10^6/uL (4.70-6.10); RED CELL DISTRIBUTION WIDTH 21.1 % (12.0-15.0); WHITE BLOOD COUNT 4.5 x10^3/uL (4.8-10.8)
[2023-03-01 10:25] LABS: RBC MORPHOLOGY (MULTIPLE) 4+ ANISOCYTOSIS (NORMAL); SLIDE REVIEW? Indicated
--- NOTE | 2023-03-01 10:26 | XRAY Report ---
PROCEDURE: Chest 1 View X-Ray INDICATIONS: dyspne TECHNIQUE: One view of the chest was acquired. COMPARISON: None. FINDINGS: Surgical changes and devices: None. Lungs and pleura: Bilateral pulmonary infiltrates, right greater than left. At least moderate right pleural effusion with right basilar atelectasis. Mediastinum: Mediastinal contours appear normal. Question cardiomegaly. Bones and chest wall: No suspicious bony lesions. Overlying soft tissues appear unremarkable. IMPRESSION: Findings likely represent congestive heart failure exacerbation. Also possible is bilateral pneumonia , right greater than left, with associated right pleural effusion and right basilar atelectasis. Reviewed by: Gui Sood MD on 03/01/2023 10:25 AM [facility] Approved by: Gui Sood MD on 03/01/2023 10:25 AM [facility] Station ID: [id number]
[2023-03-01 10:35] LABS: ALBUMIN 1.7 g/dL (3.2-5.5); ALBUMIN/GLOBULIN RATIO 0.2 (1.0-2.2); CALCIUM 8.4 mg/dL (8.5-10.3); CREATININE 1.6 mg/dL (0.6-1.3); MAGNESIUM 1.5 mg/dL (1.7-2.3); POTASSIUM 5.8 mmol/L (3.5-4.5); TOTAL PROTEIN 10.4 g/dL (6.4-8.9)
[2023-03-01 11:44] LABS: B. PARAPERTUSSIS- RESP PCR PAN NOT DETECTED; B. PERTUSSIS- RESP PCR PANEL NOT DETECTED; C. PNEUMONIAE- RESP PCR PANEL NOT DETECTED; CORONAVIRUS 229E-RESP PCR NOT DETECTED; CORONAVIRUS HKU1-RESP PCR NOT DETECTED; CORONAVIRUS NL63-RESP PCR NOT DETECTED; CORONAVIRUS OC43-RESP PCR NOT DETECTED; HUMAN METAPNEUMOVIRUS NOT DETECTED; INFLUENZA A- RESP PCR PANEL NOT DETECTED; INFLUENZA B - RESP PCR PANEL NOT DETECTED; M. PNEUMONIAE- RESP PCR PANEL NOT DETECTED; PARAINFLUENZA VIRUS 1 NOT DETECTED; PARAINFLUENZA VIRUS 2 NOT DETECTED; PARAINFLUENZA VIRUS 3 NOT DETECTED; PARAINFLUENZA VIRUS 4 NOT DETECTED; RHINOVIRUS/ENTEROVIRUS NOT DETECTED; RSV- RESP PCR PANEL NOT DETECTED; SARS-CoV-2 -RESP PCR PANEL NOT DETECTED
[2023-03-01] MEDS ORDERED: MAGNESIUM SULFATE 2 GRAM 2 GM/50 ML BAG IV ONE (12:38)
[2023-03-01 14:50] LABS: CALCIUM 8.4 mg/dL (8.5-10.3); CREATININE 1.6 mg/dL (0.6-1.3); MAGNESIUM 1.7 mg/dL (1.7-2.3); POTASSIUM 5.1 mmol/L (3.5-4.5)
[2023-03-01] MEDS ORDERED: FUROSEMIDE 20 MG/2 ML VIAL IVP STA (15:04)
[2023-03-01] MEDS ORDERED: SODIUM CHLORIDE FLUSH 0.9% 10 ML SYRINGE IVP PRN (17:11)
[2023-03-01] MEDS ORDERED: oxyCODONE 5 MG TABLET PO PRN (17:20)
[2023-03-01] MEDS ORDERED: ONDANSETRON ODT 4 MG TABLET TL PRN (17:20)
[2023-03-01] MEDS ORDERED: ACETAMINOPHEN 325 MG TABLET PO PRN (17:20)
[2023-03-01] MEDS ORDERED: ONDANSETRON 4 MG/2 ML VIAL IVP PRN (17:20)
[2023-03-01] MEDS ORDERED: DICLOFENAC SODIUM 1% GEL 50 GM TUBE TOP PRN (17:27)
--- NOTE | 2023-03-01 17:46 | HISTORY & PHYSICAL EXAMINATION ---
Chief Complaint - Chief Complaint Chief Complaint: Increasing abdominal girth, increasing leg edema, shortness of breath History of Present Illness - Admitted From Admitted From:: Home - History [facility]btained [facility] History obtained from: Dr. Patricia Exam Limitations: Patient's lethargy and confusion - History of Present Illness HPI Comment/Other: 67-year-old white male who has a history of nonalcoholic fatty liver disease, coronary artery disease, and hypertension and is followed by Dr. Estevez at [facility] as well as Dr. Ferrer here at our community clinics. He started getting ill with abdominal distention, and edema sometime after COVID. He does not remember exactly when but he started getting short of breath, and edematous. He was diagnosed with cirrhosis and ascites. When he retired in 2009 he became very sedentary and gained a lot of weight.They feel that he has fatty liver causing cirrhosis with ascites. To his knowledge he does not have esophageal varices. He has symptom management with an intermittent paracentesis. His first paracentesis was in April of this year. That resulted in a diagnosis of Spontaneous bacterial peritonitis and he was asked to come to our emergency room on April 18 where he was admitted and treated with antibiotics until April 21. Maintenance medications include spironolactone and carvedilol. He is compliant with medications and compliant with diet according to his and the ER doctor. He was taking Lasix. And with the paracentesis and Lasix he was doing very well. His and GI doctor described him as "having color in his cheeks". Endurance was improved. Prior to becoming ill he mowed the lawn's, help clean house, drove the car, and did just fine. But he is less mobile with this diagnosis.In June of this year, his ammonia was normal after being quite high. So he did not have to use lactulose.When he was seen in routine follow-up in December of this year by his lead software development engineer, he was so well-controlled that his Lasix was discontinued.He is still on a beta-ignacio and spi ronolactone. Since that time, the edema has been very slowly worsening. About a week ago he was getting short of breath with exertion and then at rest. He shortness of breath Increased on Saturday (today is Saturday) To the point that he could not lay down and has been sleeping in a recliner in his living room. Confusion started yesterday. There is no fever, chills, cough. No diarrhea. No abdominal pain. No change in the color of his stools. He had a paracentesis on Saturday and that did not help. O2 sats at home were 89 to 90%. He and his both state that he really has been good. He feels that he would be a candidate for a liver transplant if the time came. The emergency room provider examined him and found to be well-developed, well- nourished and in respiratory distress with labored breathing and tachypnea. He had a regular rate and rhythm that was slow. Fine crackles at the bases with decreased breath sounds at the right base. Moderately distended abdomen that was not tender with decreased bowel sounds. He had dusky discoloration to both legs but capillary refill at the toes was normal. He had 2+ edema but was Homans negative. He was oriented to person but not to place and time. Able to answer simple questions. White cell count was 4.5 with a hemoglobin of 8.4. Hematocrit 29.6. Sodium was 129 after being 128 in December. Potassium was 5.8 and worse than the 5.1 in December. BUN is 36, creatinine 1.6. He received Lasix in the emergency room and repeat labs were done 4 hours later with the potassium being 5.1 and sodium 131. BUN and creatinine remained stable. Initial troponin was 28.1, and second troponin 27.5. BNP was 1043. Total protein is quite high in this gentleman. He is 10.4. Urine output was about 800 cc with a dose of 40 mg of Lasix, followed by 20 mg of Lasix. Chest x-ray shows a new pleural effusion on the right, signs of congestive heart failure on exam, and possible pneumonia. I discussed the case with the emergency room provider. Not clear why this patient went into congestive heart failure other than the Lasix being stopped In December. Patient is otherwise compliant with diet, salt intake. He is not an alcoholic. Patient is now admitted because I expect more than 2 midnights to stabilize his congestive heart failure History - Past Medical History Cardiovascular: reports: Congestive heart failure, Hypertension, Coronary artery disease, ID Respiratory: reports: None Neuro: reports: None Endocrine/Autoimmune: reports: None GI: reports: GERD : reports: None HEENT: reports: None Psych: reports: None Musculoskeletal: reports: None Derm: reports: None MRSA Hx?: No - Past Surgical History General: reports: Colonoscopy Ortho: reports: Arthroscopic surgery (Of knee) Cardiovascular: reports: Coronary stent - Family & Social History Family History Comment/Other: Mom at age 68 of complications of smoking and emphysema. Dad at age 63 of an unknown cancer. One half sister is in her 40s and had a heart attack. No children Living arrangement: At home Living Situation: With spouse/s.o. Social History Notes: Born and raised in [place]. 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 He did [employer] work. Never smoked. Rarely drinks. Retired to [employer]. to his first . They have no children. He has no history of recreational substance abuse. Prior to his illness he was very active, and able to do what ever he wanted to do - Substance History Use: Uses substance without health or social issues: NONE Abuse: Recurrent use of substance despite neg consequences: NONE Dependence: Experiences withdrawal or developed tolerances: NONE - POLST Patient has POLST: No POLST Status: Full Code Meds/Allgy - Home Medications Home Medications: Ambulatory Orders Medication Instructions Recorded Confirmed Aspirin 81 mg PO DAILY 11/18/12 03/01/23 Spironolactone [Aldactone] 25 mg PO DAILY 12/12/21 04/19/22 carvediloL [Coreg] 3.125 mg PO BID 12/12/21 03/01/23 Ascorbic Acid/Ascorbate Sodium 500 mg PO DAILY 04/19/22 04/19/22 [Vitamin C 500 mg Tablet Chew] Cholecalciferol [Vitamin D3] 400 unit PO DAILY 04/19/22 04/19/22 Cyanocobalamin (Vitamin B-12) 1,000 mcg PO DAILY 04/19/22 04/19/22 [Vitamin B-12] Diclofenac Sodium 1% Gel [Voltaren 1 applic TOP BID PRN 04/19/22 03/01/23 Gel] Folic Acid 1 mg PO BID 04/19/22 03/01/23 Melatonin/Pyridoxine [Melatonin 5 1 each PO DAILY 04/19/22 04/19/22 mg Tablet] Multivitamin W/Minerals [Theragran 1 each PO DAILY 04/19/22 04/19/22 M] Pyridoxine [Vitamin B-6] 100 mg PO DAILY 04/19/22 04/19/22 Zinc Gluconate [Zinc] 50 mg PO DAILY 04/19/22 04/19/22 Pantoprazole [Protonix] 40 mg PO QDAC 03/01/23 03/01/23 - Allergies Allergies/Adverse Reactions: Allergies Allergy/AdvReac Type Severity Reaction Status Date / Time Penicillins Allergy unknown Verified 04/18/22 16:51 Review of Systems - Constitutional Constitutional: reports: Fatigue, Malaise, Weakness, Poor appetite - Eyes Eyes: denies: Pain, Irritation, Amaurosis - Ears, Nose & Throat Ears, Nose & Throat: reports: Hearing loss. denies: Hearing aids, Tinnitus, Dentures, Sore throat, Hoarseness - Cardiovascular Cariovascular: reports: Edema (Worsening this week), Exertional dyspnea, Decr. exercise tolerance. denies: Irregular heart rate, Palpitations, Chest pain - Respiratory Respiratory: reports: SOB at rest, SOB with exertion. denies: Cough, Sputum production, Wheezing, Snoring - Gastrointestinal Gastrointestinal: reports: Abdominal distention, Reflux/heartburn, Poor appetite, Other (Worsening abdominal distention this week). denies: Abdominal pain, Change in bowel habits, Black stools, Bloody stools, Nausea, Vomiting, Coffee grounds emesis - Genitourinary Genitourinary: reports: Nocturia. denies: Dysuria, Frequency, Urgency, Hematuria, Incontinence, Flank pain - Musculoskeletal Musculoskeletal: reports: Muscle weakness. denies: Muscle pain, Back pain, Muscle aches, Stiffness, Joint pain - Integumentary Integumentary: denies: Rash, Pruritis, Lesions, Dryness - Neurological Neurological: reports: General weakness, Memory problems. denies: Focal weakness, Headache, Pre-existing deficit, Abnormal gait - Psychiatric Psychiatric: denies: Depression, Anxiety, Suicidal - Endocrine Endocrine: denies: Polyuria, Polydypsia, Polyphagia - Hematologic/Lymphatic Hematologic/Lymphatic: denies: Anemia, Bruising, Petechiae Prior Level of Functionality: Prior to his illness completely independent. Up until December of this year was doing very well. No walker, no cane. In the last week he is so weak he cannot get out of the recliner. Exam - Vital Signs Reviewed Vital Signs: Yes Vital Signs: Vital Signs x48h Temp Pulse Resp BP Pulse Ox O2 Flow Rate 03/01/23 15:11 76 18 112/59 L 100 03/01/23 14:32 75 20 103/65 100 1.5 03/01/23 13:40 36.0 C L 74 21 109/63 100 1.5 03/01/23 12:06 76 19 122/69 98 1.5 03/01/23 11:07 76 18 121/60 94 2 - Physical Exam General Appearance: positive: Moderate distress (Respiratory), Lethargic Eyes Bilateral: positive: PERRL, EOMI ENT: positive: Dry mucous membranes (From oral mouth breathing and panting) Neck: positive: Other (JVD present at 45 degrees). negative: Stiff neck Respiratory: positive: Rales, Other (Just speaking increases his respiratory rate and he gets tachypneic with simple sentences or even answering yes no. Using his abdominal muscles to breathe). negative: Wheezes, Rhonchi Cardiovascular: positive: Regular rate & rhythm, Systolic murmur Peripheral Pulses: positive: 0 Abdomen: positive: Non-tender, Other (Massively enlarged abdominal pannus with the fluid wave, no organomegaly, hypoactive bowel sounds. Severe Corrie intertrigo in the groin and underneath his pannus) Skin: positive: Other (Early sacral decubiti, Very cold to touch legs) Extremities: positive: Full ROM, Pedal edema Neurologic/Psychiatric: positive: Oriented x3, CN's nml (2-12). negative: Motor nml (Psychomotor slowing.No asterixis,) Conclusion/Plan - Problem List (1) Acute congestive heart failure Conclusion/Plan: He has no history of cardiac disease prior to this. This could be simple cirrhosis worsening and causing pleural effusions. He has no history of chest pain or angina. No previous history of viral illness associated with myocardi tis. He does not have alcoholism to give him alcoholic cardiomyopathy. Troponins have been done and they are flat. Not significant for ischemia. He does not have atrial fibrillation. Plan: Diuresis with Lasix Continue Coreg Stop spironolactone because of hyperkalemia Echocardiogram should be done but we do not have an animal laboratory technician until next Saturday (today is Saturday). If he is still here we will get the echo. If not it would need to be done in the outpatient setting. If echo indicates, he would be a candidate for VIRGINIE inhibitor or ARB If his congestive heart failure does not respond and he continues to deteriorate with hypoxia and acute respiratory failure, he will be a candidate for ICU transfer, and being started on BiPAP first. If BiPAP fails then he would be candidate for intubation on the basis of his CODE STATUS. Please see separate advance care planning conversation dictated on another note Qualifiers: Heart failure type: unspecified Qualified Code(s): I50.9 - Heart failure, unspecified (2) Ascites Conclusion/Plan: Due to cirrhosis from nonalcoholic liver disease.Currently without abdominal pain. He does not have a fever. White cell count is not elevated. I do not f eel I need to do an emergency paracentesis for spontaneous bacterial peritonitis at this time Plan: Diuresis as in problem #1 Fluid restriction to 1500 cc a day Sodium restriction Check ammonia level to see if he needs to resume lactulose Qualifiers: Ascites type: other type Qualified Code(s): R18.8 - Other ascites (3) Non-alcoholic cirrhosis Conclusion/Plan: As in problem #3 (4) Hepatic encephalopathy Conclusion/Plan: Ammonia level in the morning. Lactulose will start tomorrow if it is high (5) Normocytic anemia Conclusion/Plan: No history of chronic blood loss with esophageal varices. No history of ulcer disease. Plan: Protonix prophylactically Anemia panel (6) Hyperkalemia Conclusion/Plan: Since I am going to be starting him on Lasix IV push, I will hold off on giving him Kayexalate. However if he continues to be high tomorrow I will give that to him. I will stop spironolactone (7) Hepatorenal syndrome Conclusion/Plan: I am hoping that with reducing his fluid overload, stopping the spironolactone, that his BUN and creatinine will improve. Will keep on checking on a daily basis. Avoid nephrotoxins. (8) Sacral decubitus ulcer Conclusion/Plan: Present on admission. Due to the fact the patient became very sedentary over the last week. Will start nursing protocol with regards to wound care Qualifiers: Pressure injury stage: unstageable Qualified Code(s): L89.150 - Pressure ulcer of sacral region, unstageable (9) Candidal intertrigo Conclusion/Plan: He has not really gotten out of a chair for a few days. Most likely he has been incontinent of urine but denies it. Will start wound care, clean his skin, and start nystatin (10) Generalized weakness Conclusion/Plan: Unable to ambulate. This is a patient who was without any use of durable medical equipment, and completely independent with activities of daily living over 2 weeks ago. Once he is diuresed, is less short of breath, I will order PT and OT for evaluation and treatment - Lab Results Lab results reviewed: Yes Fish Bones: 03/01/23 10:11 03/01/23 14:16 - Diagnostic Imaging Results Diagnostic Imaging Results: positive: Final report reviewed Diagnostic Imaging Results Comments: Chest x-ray from June 27, 2022 was reviewed and had no acute cardiopulmonary process. Chest x-ray done today shows congestive heart failure exacerbation with possible bilateral pneumonia, right greater than left, associated with right pleural effusion and right basilar atelectasis - EKG Results EKG Interpreted Independently: No Core Measures - Anticipated LOS I expect patient to be DC'd or transferred within 96 hours.: Yes - DVT/VTE - Prophylaxis VTE/DVT Device ordered at admit?: Yes
--- NOTE | 2023-03-01 19:49 | ADVANCE CARE PLANNING NOTE ---
Advance Care Planning - Planning Encounter Date: 03/01/23 Time: 19:44 Purpose: Established CODE STATUS and care goals Parties in Attendance: , patient, and hospitalist Decisional Capacity of the Patient: Alert, psychomotor slowing with disorientation to time. However defers to him for making decisions. - Diagnosis for Encounter (1) Non-alcoholic cirrhosis Summary: Diagnosed with cirrhosis from nonalcoholic fatty liver disease sometime in the last 2 years. Started paracentesis April 2021. - Encounter Subjective/Patient's Story: Born and raised in [place]. 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 Retired in [employer]. Lives with his and they have no children. They live in their own home. Prior to becoming ill he completed all activities of daily living without any difficulty. He became very sedentary after retiring from the [employer] and gained a lot of weight. This started in 2009. Somewhere around 2019 he began developing symptoms of fatty liver disease with abdominal distention, bloating. But not formally diagnosed until fall 2020. Since that time he had a fairly marked downhill course with diminished mobility and increased abdominal discomfort. Started getting paracentesis in April 2021. But he feels like he was stabilized after regular paracentesis, medic ations with spironolactone, Lasix, Coreg and lactulose. By June 2022 off lactulose because of good mentation. Normal ammonia level. By December 2022 weight was stable, edema was stable, ascites was stable and he was taken off Lasix. He now comes in with acute distress from severe anasarca, congestive heart failure. Unclear if this is worsening cirrhosis or a new cardiac problem. He states that he would like to be considered for a liver transplant. And because of that he still wants everything done to keep him alive. He feels like he was "doing so good" that he thinks we can get him back to that plateau. I described what a resuscitative effort would look like with CPR, cardioversion, intubation. I described the low statistical probability of surviving that. I also described what his status would be like if he did managed to survive a full resuscitative event. With that in mind, both he and his are a little taken aback and wonder if they are doing the right thing. But they both have not really ever discussed this in any great length. They have never discussed what would happen if he became severely disabled. As such they would like him to be full code with a more full advance care planning conversation to be held by them in the near future. Objective/Medical Story: 67-year-old white male who has a history of nonalcoholic fatty liver disease, coronary artery disease, and hypertension and is followed by Dr. sEtevez at [facility] as well as Dr. Ferrer here at our community clinics. He started getting ill with abdominal distention, and edema sometime after COVID. He does not remember exactly when but he started getting short of breath, and edematous. He was diagnosed with cirrhosis and ascites. When he retired in 2009 he became very sedentary and gained a lot of weight.They feel that he has fatty liver causing cirrhosis with ascites. To his knowledge he does not have esophageal varices. He has symptom management with an intermittent paracentesis. His first paracentesis was in April of this year. That resulted in a diagnosis of Spontaneous bacterial peritonitis and he was asked to come to our emergency room on April 18 where he was admitted and treated with antibiotics until April 21. Maintenance medications include spironolactone and carvedilol. He is compliant with medications and compliant with diet according to his and the ER doctor. He was taking Lasix. And with the paracentesis and Lasix he was doing very well. His and GI doctor described him as "having color in his cheeks". Endurance was improved. Prior to becoming ill he mowed the lawn's, help clean house, drove the car, and did just fine. But he is less mobile with this diagnosis.In June of this year, his ammonia was normal after being quite high. So he did not have to use lactulose.When he was seen in routine follow-up in December of this year by his medical recruiter, he was so well-controlled that his Lasix was discontinued.He is still on a beta-ignacio and spironolactone. Since that time, the edema has been very slowly worsening. About a week ago he was getting short of breath with exertion and then at rest. He shortness of breath Increased on Saturday (today is Saturday) To the point that he could not lay down and has been sleeping in a recliner in his living room. Confusion started yesterday. There is no fever, chills, cough. No diarrhea. No abdominal pain. No change in the color of his stools. He had a paracentesis on Saturday and that did not help. O2 sats at home were 89 to 90%. He and his both state that he really has been good. He feels that he would be a candidate for a liver transplant if the time came. The emergency room provider examined him and found to be well-developed, well- nourished and in respiratory distress with labored breathing and tachypnea. He had a regular rate and rhythm that was slow. Fine crackles at the bases with decreased breath sounds at the right base. Moderately distended abdomen that was not tender with decreased bowel sounds. He had dusky discoloration to both legs but capillary refill at the toes was normal. He had 2+ edema but was Homans negative. He was oriented to person but not to place and time. Able to answer simple questions. White cell count was 4.5 with a hemoglobin of 8.4. Hematocrit 29.6. Sodium was 129 after being 128 in December. Potassium was 5.8 and worse than the 5.1 in December. BUN is 36, creatinine 1.6. He received Lasix in the emergency room and repeat labs were done 4 hours later with the potassium being 5.1 and sodium 131. BUN and creatinine remained stable. Initial troponin was 28.1, and second troponin 27.5. BNP was 1043. Total protein is quite high in this gentleman. He is 10.4. Urine output was about 800 cc with a dose of 40 mg of Lasix, followed by 20 mg of Lasix. Chest x-ray shows a new pleural effusion on the right, signs of congestive heart failure on exam, and possible pneumonia. I discussed the case with the emergency room provider. Not clear why this patient went into congestive heart failure other than the Lasix being stopped In December. Patient is otherwise compliant with diet, salt intake. He is not an alcoholic. Patient is now admitted because I expect more than 2 midnights to stabilize his congestive heart failure Goals of Care: To achieve a stable fluid balance that he had in December with continued intervention through his medical recruiter and primary care provider. If disease status requires, he would like to be put on the transplant list and start that process with his medical recruiter Plan: At this time my goal is to get him through this acute hospitalization. I would like to diurese him with Lasix and continue Coreg.. I am stopping his spironolactone due to hyperkalemia. I am putting him on a fluid restriction. Checking his ammonia level and possibly starting lactulose again. I will notify his medical recruiter that he is here. I will make sure that his CODE STATUS is full code. Code Status: Attempt Resuscitation Time spent on advance care plannin minutes
[2023-03-01] MEDS: NYSTATIN CREAM 15 GM TUBE TOP SCH (22:14)
[2023-03-01] MEDS: carvediloL 3.125 MG TABLET PO SCH (22:15)
[2023-03-01] MEDS: FOLIC ACID 1 MG TABLET PO SCH (22:18)
[2023-03-02] MEDS: SODIUM CHLORIDE FLUSH 0.9% 10 ML SYRINGE IVP SCH ×3 (03:04→16:39)
[2023-03-02 05:35] LABS: BASOPHILS # (AUTO) 0.1 10^3/uL (0.0-0.1); BASOPHILS % (AUTO) 1.4 %; EOSINOPHILS # (AUTO) 0.1 10^3/uL (0.0-0.7); EOSINOPHILS % (AUTO) 2.4 %; HCT - HEMATOCRIT 29.6 % (42.0-52.0); HGB - HEMOGLOBIN 8.4 g/dL (14.0-18.0); LYMPHOCYTES # (AUTO) 0.8 10^3/uL (1.5-3.5); LYMPHOCYTES % (AUTO) 16.3 %; MEAN CORPUSCULAR HEMOGLOBIN 27.3 pg (27.0-31.0); MEAN CORPUSCULAR HGB CONC 28.4 g/dL (32.0-36.0); MEAN CORPUSCULAR VOLUME 96.1 fL (80.0-94.0); MONOCYTES # (AUTO) 0.5 10^3/uL (0.0-1.0); MONOCYTES % (AUTO) 8.9 %; NEUTROPHILS # (AUTO) 3.6 10^3/uL (1.5-6.6); NEUTROPHILS % (AUTO) 70.6 %; PLT - PLATELET COUNT 195 10^3/uL (130-450); RED BLOOD COUNT 3.08 10^6/uL (4.70-6.10); RED CELL DISTRIBUTION WIDTH 21.2 % (12.0-15.0)
[2023-03-02 05:49] LABS: CALCIUM 8.6 mg/dL (8.5-10.3); CREATININE 1.7 mg/dL (0.6-1.3); POTASSIUM 5.5 mmol/L (3.5-4.5)
[2023-03-02] MEDS ORDERED: PANTOPRAZOLE 40 MG TABLET PO SCH (07:00)
[2023-03-02 07:03] LABS: DIFFERENTIAL COMMENT MANUAL=AUTO DIFF; PLATELET ESTIMATE, MANUAL NORMAL (130-450,000) (NORMAL); PLATELET MORPHOLOGY NORMAL APP (NORMAL); RBC MORPHOLOGY (MULTIPLE) 1+ ANISOCYTOSIS (NORMAL)
[2023-03-02 07:11] LABS: EOSINOPHILS # (MANUAL) 0.1 10^3/uL (0-0.7); LYMPHOCYTES # (MANUAL) 0.4 10^3/uL (1.5-3.5); LYMPHOCYTES % (MANUAL) 7 %; MONOCYTES # (MANUAL) 0.6 10^3/uL (0.0-1.0)
--- NOTE | 2023-03-02 08:34 | PHARMACY PROGRESS NOTE ---
- Best Possible Medication History Admit Date and Time: 03/01/23 1714 Processed by: Pharmacy Medication History completed: Yes Patient Interview: Completed Secondary Source(s): Spouse/Significant other, Pharmacy records, Insurance records As the person ultimately responsible for medication therapy, providers are able to order a medication from an existing home medication list in [facility] via the "Reconcile Routine" prior to Confirmation of that medication by underwriting support manager. Such practice is discouraged except when the physician, in their clinical judgment, deems that a medical need exists for a medication without regard to previous use.
[2023-03-02] MEDS ORDERED: INSULIN REGULAR HUMAN 300 UNIT/3 ML VIAL IVP ONE ×2 (08:55→16:01)
[2023-03-02] MEDS ORDERED: DEXTROSE 50% ABBOJECT 25 GM/50 ML SYRINGE IVP ONE ×2 (08:55→16:01)
--- NOTE | 2023-03-02 08:55 | PROVIDER PROGRESS NOTE ---
Progress Note March 02, 2023 2:38 PM Urine output was 1850 cc. Exam: Temperature 36.9, heart rate 87, blood pressure 106/66, respirations 20, 92% saturated on 2 L nasal cannula. He describes the pain a 4 out of 10 in his back.He is short of breath. Very frustrated. He can only do 1 word sentences. But in trying to speak to me with one-word questions I do not know what is asking. For instance he said fix, vague, wait. But nothing else to take guide me about what he wanted. That made him very frustrated and I can imagine why. He is short of breath at rest. Chest wall excursion is expansive and he is using his abdominal muscles to breathe. Neck is supple with shotty adenopathy Dull bilateral lung bases. Right greater than left and distribution. I cannot get him to "e" to check for egophony. Again, short of breath at rest, using abdominal muscles to help him breathe. Regular rate and rhythm Abdomen is distended, positive fluid wave, nontender, hypoactive bowel sounds Legs are with HOLLIS hose and still palpable 1-2+ edema Laboratory Tests 03/02/23 03/02/23 05:09 05:09 Sodium 130 L Potassium 5.5 H Anion Gap 5.0 L BUN 39 H Creatinine 1.7 H Estimated GFR (MDRD) 40 L B-Natriuretic Peptide 1380 H Laboratory Tests 03/02/23 08:59 Ammonia 99.3 H* Conclusion/Plan - Problem List (1) Acute congestive heart failure Conclusion/Plan: He has no history of cardiac disease prior to this. This could be simple cirrhosis worsening and causing pleural effusions. He has no history of chest pain or angina. No previous history of viral illness associated with myocarditis. He does not have alcoholism to give him alcoholic cardiomyopathy. Troponins have been done and they are flat. Not significant for ischemia. He does not have atrial fibrillation. Plan:Is without change. I will continue the same plan from yesterday. Diuresis with Lasix Continue Coreg Stop spironolactone because of hyperkalemia Echocardiogram should be done but we do not have an operating room technician until next Saturday (today is Saturday). If he is still here we will get the echo. If not it would need to be done in the outpatient setting. If echo indicates, he would be a candidate for VIRGINIE inhibitor or ARB If his congestive heart failure does not respond and he continues to deteriorate with hypoxia and acute respiratory failure, he will be a candidate for ICU transfer, and being started on BiPAP first. If BiPAP fails then he would be candidate for intubation on the basis of his CODE STATUS. Please see separate advance care planning conversation dictated on another note Qualifiers: Heart failure type: unspecified Qualified Code(s): I50.9 - Heart failure, unspecified (2) Ascites Conclusion/Plan: Due to cirrhosis from nonalcoholic liver disease.Currently without abdominal pain. He does not have a fever. White cell count is not elevated. I do not feel I need to do an emergency paracentesis for spontaneous bacterial peritonitis at this time Plan: Diuresis as in problem #1 Fluid restriction to 1500 cc a day Sodium restriction Check ammonia level to see if he needs to resume lactulose Qualifiers: Ascites type: other type Qualified Code(s): R18.8 - Other ascites (3) Non-alcoholic cirrhosis Conclusion/Plan: As in problem #3 (4) Hepatic encephalopathy Conclusion/Plan: Ammonia level is over 90. I will start him on lactulose 10 g twice daily (5) Normocytic anemia Conclusion/Plan: No history of chronic blood loss with esophageal varices. No history of ulcer disease. Plan: Protonix prophylactically Anemia panel (6) Hyperkalemia Conclusion/Plan: I started him on Lasix on admission and hoped that this would bring his potassium down. However potassium is even higher today. I will give D50, 1 amp. Followed by 10 mg IV push insulin. Repeat potassium in 4 hours (7) Hepatorenal syndrome Conclusion/Plan: I am hoping that with reducing his fluid overload, stopping the spironolactone, that his BUN and creatinine will improve. Will keep on checking on a daily basis. Avoid nephrotoxins. (8) Sacral decubitus ulcer Conclusion/Plan: Present on admission. Due to the fact the patient became very sedentary over the last week. Will start nursing protocol with regards to wound care Qualifiers: Pressure injury stage: unstageable Qualified Code(s): L89.150 - Pressure ulcer of sacral region, unstageable (9) Candidal intertrigo Conclusion/Plan: He has not really gotten out of a chair for a few days. Most likely he has been incontinent of urine but denies it. Will start wound care, clean his skin, and start nystatin (10) Generalized weakness Conclusion/Plan: Unable to ambulate. This is a patient who was without any use of durable medical equipment, and completely independent with activities of daily living over 2 weeks ago. Once he is diuresed, is less short of breath, I will order PT and OT for evaluation and treatment
[2023-03-02] MEDS ORDERED: ASCORBIC ACID 500 MG TABLET PO SCH (09:00)
[2023-03-02] MEDS ORDERED: polyethylene glycoL 3350 17 GM PACKET PO SCH (09:00)
[2023-03-02] MEDS ORDERED: CHOLECALCIFEROL 400 UNIT TABLET PO SCH (09:00)
[2023-03-02] MEDS ORDERED: PYRIDOXINE 100 MG TABLET PO SCH (09:00)
[2023-03-02] MEDS ORDERED: FUROSEMIDE 40 MG/4 ML VIAL IVP SCH (09:00)
[2023-03-02] MEDS ORDERED: ASPIRIN CHEW 81 MG TABLET PO SCH (09:00)
[2023-03-02] MEDS ORDERED: MULTIVITAMIN W/MINERALS TABLET PO SCH (09:00)
[2023-03-02 09:21] LABS: CALCIUM 8.6 mg/dL (8.5-10.3); CREATININE 1.8 mg/dL (0.6-1.3); POTASSIUM 5.7 mmol/L (3.5-4.5)
[2023-03-02] MEDS: NYSTATIN CREAM 15 GM TUBE TOP SCH ×2 (10:29→22:29)
[2023-03-02] MEDS: carvediloL 3.125 MG TABLET PO SCH ×2 (10:37→22:32)
[2023-03-02] MEDS: FOLIC ACID 1 MG TABLET PO SCH ×2 (10:37→22:32)
[2023-03-02] MEDS: LACTULOSE 10 GM /15 ML UDC PO SCH ×2 (10:38→22:32)
[2023-03-02 14:56] LABS: CALCIUM 8.6 mg/dL (8.5-10.3); CREATININE 2.1 mg/dL (0.6-1.3); POTASSIUM 5.6 mmol/L (3.5-4.5)
[2023-03-02] MEDS ORDERED: NYSTATIN POWDER 15 GM TOP SCH (21:00)
[2023-03-03] MEDS: SODIUM CHLORIDE FLUSH 0.9% 10 ML SYRINGE IVP SCH (00:34)
[2023-03-03 01:03] VITALS: BP 93/61
[2023-03-03 02:00] VITALS: O2SAT 94
[2023-03-03] MEDS ORDERED: EPINEPHrine ABBOJECT 1 MG/10 ML SYRINGE IVP ONE (04:48)
--- NOTE | 2023-03-03 06:44 | PROVIDER PROGRESS NOTE ---
Medical Delivery Driver Note - Medical Delivery Driver Note Medical Delivery Driver Note: 03/03/2023 ~1:30am Reviewed tele strips in EMR, d/w with RN, 2nd degree AV block. HR 55-60 with BP 100/60 which is similar to prior. Coreg discontinued. Continue to monitor closely on telemetry and notify for any signs of hemodynamic instability such as bradycardia or decreasing blood pressure. Plan for echo/cardiology in a.m.
--- NOTE | 2023-03-03 07:08 | ED Physician Documentation ---
ED Addendum - Addendum Addendum: 03/03/23 06:29 At approximately 04:30, I was part of the team responding to CODE GRETEL announced overhead for this patient. Nursing staff at patient's bedside indicate that patient was admitted 2 days ago for shortness of breath; past medical history includes cirrhosis, possible congestive heart failure. On my arrival to bedside, the patient is not exhibiting any spontaneous respirations and thus breaths are being delivered via [id number]. CPR is being done, having been initiated prior to my arrival. Nursing staff at patient's bedside indicate to me that shortly before the CODE GRETEL was called, it was noted that he had become bradycardic on the police academy instructor and when nurse when to check on patient, he was unconscious and exhibiting agonal breathing. Patient is full code. Subsequent to my arrival, on first pulse check there is no pulse (right carotid artery); asystole on police academy instructor. CPR was thus resumed and patient is given 1 mg epinephrine intravenous. ACLS protocol followed for a total of 19 minutes of attempted resuscitation. Respiratory therapist indicates that she is not having any difficulty delivering breaths using the [id number], and thus I did not intubate the patient (GlideScope is at the bedside, and I was ready to intubate the patient should he regain a perfusing rhythm or if it becomes difficult to deliver breaths via BVM). Several pulse checks are performed during this period of resuscitation. On these pulse checks, rhythm on the monitor varied between PEA and asystole. On the final pulse check prior to cessation of resuscitation efforts, patient was again in PEA which then became asystole. At no time during resuscitation did patient have palpable pulses on any of the pulse checks. At no time did he exhibit spontaneous respirations during resuscitation efforts. The patient received a total of 5 mg epinephrine IV (1 mg every 3 minutes). He was also given 1 amp of sodium bicarb IV. At 04:49, I informed the rest of the code team my intention to cease resuscitation efforts unless there were objections or suggestions for other intervention. There were no such objections nor suggestions regarding other interventions, and resuscitation efforts were stopped at 04:49. Pupils are fixed and dilated bilaterally. There are no spontaneous respirations. There is no response to painful stimulus (sternal rub). No heart sounds on stethoscopic auscultation. I pronounced patient at 04:49. I informed spouse of patient's (she was in the hallway outside of the room). I reviewed with her the resuscitative efforts undertaken and medications given.
--- NOTE | 2023-03-03 08:15 | DISCHARGE SUMMARY ---
Discharge Summary Admit Date: 03/01/23 Discharge Date: 03/02/23 Discharging Provider: Elisabeth Teran MD Primary Care Provider: Tommy Fermin MD Discharge Disposition: 20 - DIAGNOSES Discharge Diagnoses with Status of Each Condition: 1. Second-degree AV block 2. Hyperkalemia 3. Acute congestive heart failure 4. Ascites 5. Nonalcoholic cirrhosis 6. Hepatic encephalopathy 7. Normocytic anemia 8. Hepatorenal syndrome 9. Sacral decubitus ulcer 10. Corrie intertrigo 11. Generalized weakness - HPI History of Present Illness: 67-year-old white male who has a history of nonalcoholic fatty liver disease, coronary artery disease, and hypertension and is followed by Dr. Estevez at [facility] as well as Dr. Ferrer here at our [facility] clinics. He started getting ill with abdominal distention, and edema sometime after COVID. He does not remember exactly when but he started getting short of breath, and edematous. He was diagnosed with cirrhosis and ascites. When he retired in 2009 he became very sedentary and gained a lot of weight.They feel that he has fatty liver causing cirrhosis with ascites. To his knowledge he does not have esophageal varices. He has symptom management with an intermittent paracentesis. His first paracentesis was in April of this year. That resulted in a diagnosis of Spontaneous bacterial peritonitis and he was asked to come to our emergency room on April 18 where he was admitted and treated with antibiotics until April 21. Maintenance medications include spironolactone and carvedilol. He is compliant with medications and compliant with diet according to his and the ER doctor. He was taking Lasix. And with the paracentesis and Lasix he was doing very well. His and GI doctor described him as "having color in his cheeks". Endurance was improved. Prior to becoming ill he mowed the lawn's, help clean house, drove the car, and did just fine. But he is less mobile with this diagnosis.In June of this year, his ammonia was normal after being quite high. So he did not have to use lactulose.When he was seen in routine follow-up in December of this year by his engineering project designer, he was so well-controlled that his Lasix was discontinued.He is still on a beta-ignacio and spironolactone. Since that time, the edema has been very slowly worsening. About a week ago he was getting short of breath with exertion and then at rest. He shortness of breath Increased on Saturday (today is Saturday) To the point that he could not lay down and has been sleeping in a recliner in his living room. Confusion started yesterday. There is no fever, chills, cough. No diarrhea. No abdominal pain. No change in the color of his stools. He had a paracentesis on Saturday and that did not help. O2 sats at home were 89 to 90%. He and his both state that he really has been good. He feels that he would be a candidate for a liver transplant if the time came. - CONSULTS | PROCEDURES Procedures: Chest x-ray has congestive heart failure exacerbation with bilateral pneumonia right greater than left. Right pleural effusion and right atelectasis - HOSPITAL COURSE Hospital Course: Evaluation in the emergency room showed him to have congestive heart failure, ascites, hepatorenal syndrome with hyperkalemia. I did not feel he truly had pneumonia but more of a superimposed fluid overload from a new congestive heart failure and cirrhosis. I started him on diuresis with Lasix, treated the hyperkalemia with D50 and IV push insulin, and started lactulose. He had adequate urine output in response to my diuresis. On the day of his had given him a second dose of D50 with insulin. He had a Giles catheter and was complaining of the discomfort of the catheter where he felt like he has to constantly urinate. was spending the night with him to provide him comfort. He was identified as having second-degree heart block but no symptoms with that. He then began requiring increasing oxygen to maintain O2 sats. He went from 2 L to 3 L to than 5 L. He became increasingly bradycardic. As he was being evaluated he had sudden loss of spontaneous respiration and pulse. Code was called. Please refer to the detailed ACLS treatment. And spite of aggressive measures, the patient . was pronounced at 04: 49. was outside the room in the hallway and was notified. I was able to speak to her a few hours later to offer our condolences at the loss of her . He may have had cardiac arrhythmia resulting in second-degree block, then PEA, then asystole. At the time of this dictation, he had had an echocardiogram but those records were not able to be reviewed since they had not been read yet. - ALLERGIES Allergies/Adverse Reactions: Allergies Allergy/AdvReac Type Severity Reaction Status Date / Time Penicillins Allergy unknown Verified 04/18/22 16:51 - MEDICATIONS Home Medications: Ambulatory Orders Medication Instructions Recorded Confirmed Aspirin 81 mg PO DAILY 11/18/12 03/01/23 Spironolactone [Aldactone] 50 mg PO DAILY 12/12/21 03/02/23 carvediloL [Coreg] 3.125 mg PO BID 12/12/21 03/01/23 Ascorbic Acid/Ascorbate Sodium 500 mg PO DAILY 04/19/22 03/02/23 [Vitamin C 500 mg Tablet Chew] Cholecalciferol [Vitamin D3] 400 unit PO DAILY 04/19/22 03/02/23 Cyanocobalamin (Vitamin B-12) 1,000 mcg PO DAILY 04/19/22 03/02/23 [Vitamin B-12] Diclofenac Sodium 1% Gel [Voltaren 1 applic TOP BID PRN 04/19/22 03/01/23 Gel] Folic Acid 1 mg PO BID 04/19/22 03/01/23 Melatonin/Pyridoxine [Melatonin 5 1 each PO QPM 04/19/22 03/02/23 mg Tablet] Multivitamin W/Minerals [Theragran 1 each PO DAILY 04/19/22 03/02/23 M] Pyridoxine [Vitamin B-6] 100 mg PO DAILY 04/19/22 03/02/23 Zinc Gluconate [Zinc] 50 mg PO DAILY 04/19/22 03/02/23 Pantoprazole [Protonix] 40 mg PO QDAC 03/01/23 03/01/23 Magnesium Sulfate 250 mg PO BID 03/02/23 03/02/23 Psyllium [Metamucil] 1 each PO DAILY 03/02/23 03/02/23 - LABS Result Diagrams: 03/02/23 05:09 03/02/23 14:40
== END 2023-03-03 04:49 | disposition expired | DRG 291 ==
LOC: ED 08:56 → MS2 17:14
PROVIDERS: ADMIT Specialist; ATTEND Specialist
DX: I11.0 Hypertensive heart disease with heart failure (principal); J18.9 Pneumonia, unspecified organism; K76.7 Hepatorenal syndrome; R18.8 Other ascites; J98.11 Atelectasis; R06.00 Dyspnea, unspecified; R41.0 Disorientation, unspecified; I44.1 Atrioventricular block, second degree; I50.9 Heart failure, unspecified; E87.5 Hyperkalemia; K74.60 Unspecified cirrhosis of liver; K76.82 Hepatic encephalopathy; D64.9 Anemia, unspecified; L89.150 Pressure ulcer of sacral region, unstageable; L30.4 Erythema intertrigo; R53.1 Weakness; I25.10 Atherosclerotic heart disease of native coronary artery without angina pectoris; R00.1 Bradycardia, unspecified; I25.2 Old myocardial infarction; R32 Unspecified urinary incontinence; R06.03 Acute respiratory distress
CPT/HCPCS: 36415; 51702; 71045; 80048; 80053; 82140; 82784; 82803; 83690; 83735; 83880; 84484; 85025; 86334; 87633; 93005; 96365; 96375; 96376; 99285; A9270; J1815; 85027